=== PATIENT | female | born 1945 | race Caucasian/White ===

== ENCOUNTER 2019-02-19 10:51 | Day surgery (SDC) | payer MEDICARE, SELFPAY ==
[2019-02-12 18:28] VITALS: BMI 19.8
[2019-02-19 11:36] VITALS: BP 152/89; PULSE 74; RESP 18; TEMP 36.5; O2SAT 95
[2019-02-19] MEDS: sodium chloride 0.9% 1,000 ML 30 ML IV (11:54)
--- NOTE | 2019-02-19 12:37 | P.ANES_ITS ---
Pre-Anesthetic Assessment Pre-Anesthetic Assessment: Height/Weight: Height 1.6 m Weight 50.802 kg Temp Pulse Resp BP Pulse Ox 97.7 F 74 18 152/89 95 02/19/19 11:36 02/19/19 11:36 02/19/19 11:36 02/19/19 11:36 02/19/19 11:36 Preop Diagnosis: Right hand and forearm lesions Proposed Procedure: Operation Date: 02/13/19 13:15 Proposed Procedures p Excision Mass/Lesion/Cyst Upper Extremit(Right) - Edinson Chandler MD Operation Date: 02/19/19 13:35 Proposed Procedures p Excision Mass/Lesion/Cyst Upper Extremit(Right) - Edinson Chandler MD Last intake: Intake Last Liquid Date 02/18/19 Last Solid Date 02/18/19 Last Intake: 21:00 Social: Comment: quit 85 Airway: Submandibular: WNL Cervical ROM: WNL MP: 2 Dentition: False CV/HEM: CV/HEM: CAD, HTN and OK Comments: CABG x 06, stents x2 14, without angina Arabella 05/26, no changes/concerns stress test 11/25 neg Musc/skel: Comments: neck pain without radiculopahty Neuropsych: Neuropsych: [place]AP[place]AN Anesthetic Plan: ASA status: III Anesthesia: MAC Meds/Allergies Current Medications: Current Medications Generic Name Dose Route Start Last Admin Trade Name Freq PRN Reason Stop Dose Admin Sodium Chloride 1,000 mls @ 30 ml s/hr 02/19/19 11:30 02/19/19 11:54 Sodium Chloride 0.9% IV 02/20/19 11:29 30 mls/hr .Q24H EKTA Administration PFSH Anesthesia PFSH: Social History Smoking and tobacco status: former smoker Quit status (tobacco): has quit using tobacco Year quit tobacco: 1984 Alcohol intake: never Lives independently: Yes Household members: none Marital status: / Current occupational status: employed 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
--- NOTE | 2019-02-19 13:54 | P.HP_ITS ---
Providers/Chief Complaint Primary Care Provider: Jesusita Soto NP Chief Complaint: Excision of right forearm and right hand skin lestara History of Present Illness Makenzie Sahu is a 73 year old female referred to my office for skin lesions excision, patient gives history of skin cancer. Review of Systems Const: Reports: body aches; Denies: fever, chills, change in weight, fatigue or malaise Card: Denies: chest pain, palpitations, lightheadedness or shortness of breath on exertion Resp: Denies: shortness of breath or wheezing GI: Denies: abdominal pain, nausea, vomiting, vomiting blood, diarrhea, constipation, bloating, blood in stool or black tarry stool : Denies: difficulty urinating Musc: Denies: back pain Skin/Breast: Reports: skin tenderness Neuro: Denies: frequent falls Psych: Denies: anxiety or depression Endo: Denies: excessive urination Medications/Allergies Home Medications Medication Instructions Recorded Confirmed Last Taken Type aspirin 81 mg PO DAILY 02/12/19 02/19/19 02/16/19 History carvedilol 3.125 mg PO BID 02/12/19 02/19/19 02/19/19 06:30 History diltiazem HCl 60 mg PO TID 02/12/19 02/19/19 02/19/19 06:30 History bvtkvuqfbmr-twhmujkdf-dnsrgfsn 1 inh INHALATION DAILY 02/12/19 02/19/19 02/19/19 History [Trelegy Ellipta] furosemide 20 mg PO DAILY 02/12/19 02/19/19 Unknown History levothyroxine 25 mcg PO DAILY 02/12/19 02/19/19 02/18/19 History nitroglycerin 0.4 mg SUBLINGUAL Q5M PRN 02/12/19 02/12/19 Unknown History prednisone 5 mg PO DAILY 02/12/19 02/19/19 02/18/19 History theophylline 200 mg PO DAILY 02/12/19 02/19/19 02/18/19 History tramadol 50 mg PO BID PRN 02/12/19 02/19/19 02/18/19 History Allergies Allergy/AdvReac Type Severity Reaction Status Date / Time atenolol Allergy Unknown Verified 02/19/19 11:50 atorvastatin [From Lipitor] Allergy Unkown Verified 02/19/19 11:50 bupivacaine [From Marcaine] Allergy Unknown Verified 02/19/19 11:50 butorphanol [From Stadol] Allergy Unknown Verified 02/19/19 11:50 lisinopril Allergy Cough and Verified 02/19/19 11:50 Rash losartan [From Cozaar] Allergy Unknown Verified 02/19/19 11:50 metoprolol Allergy Rash, Verified 02/19/19 11:50 Itching PFSH Acute PFSH: Statuses (acute, chronic, etc) shown below reflect problem list status as previously entered and may not be historically accurate Family History Mother , Age 75 Hypertension Cancer Heart disease Father , Age 48 Myocardial infarction Denies family history of Anesthesia complication Bleeding disorder Social History Smoking and tobacco status: former smoker Quit status (tobacco): has quit using tobacco Year quit tobacco: 1984 Alcohol intake: never Lives independently: Yes Household members: none Marital status: / Current occupational status: employed 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[employer] [place] of 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 travel: No Vitals/I&O/Wt Last Vital Signs Temp 97.7 F 02/19/19 11:36 Pulse 74 02/19/19 11:36 Resp 18 02/19/19 11:36 BP 152/89 02/19/19 11:36 Pulse Ox 95 02/19/19 11:36 Physical Exam Const: COMMON NORMALS: no apparent distress and oriented x3 GENERAL APPEARANCE: cooperative ORIENTATION/CONSCIOUSNESS: Yes awake, Yes oriented to person, Yes oriented to place and Yes oriented to time Resp: COMMON NORMALS: normal respiratory effort and clear to auscultation bilaterally AUSCULTATION: clear to auscultation bilaterally Cardio: COMMON NORMALS: S1 normal heart sound and S2 normal heart sound; negative for no murmurs HEART SOUNDS: S1 normal and S2 normal GI: COMMON NORMALS: soft to palpation; negative for no hepatosplenomegaly INSPECTION: Yes normal to inspection PALPATION: Yes soft, No firm, No tender, No guarding, No rigid and No no hepatosplenomegaly Extremity: GENERAL: Yes other findings (Right forearm skin lesion less than centimeter in diameter and right base of the right thumb skin lesion 1.5 x 2 cm in diameter concerning for skin cancer) Neuro: COMMON NORMALS: oriented x3 SENSORIUM/ORIENTATION: Yes oriented to person, Yes oriented to place and Yes oriented to time Psych: COMMON NORMALS: mental status grossly normal A&P Assessment and plan (1) Skin lesion of hand: After thorough history physical examination and reviewing the chart we teofilo l plan to perform excision of skin lesions of the right forearm and hand Informed consent per chart Status: Acute Code(s): L98.9 - Disorder of the skin and subcutaneous tissue, unspecified Attestations Medical Necessity Statement*: Outpatient procedure Coding Level of Care Code Acute Jammer Hooker for [facility] Fwd Diagnoses Skin lesion of hand L98.9
[2019-02-19] MEDS: ceFAZolin 1,000 MG in sodium chloride 0.9% (plus) 50 ML 100 MG IV (14:00)
[2019-02-19] MEDS: lidocaine 2% INJ 20 mL INJECTION (14:20)
--- NOTE | 2019-02-19 14:44 | P.OP_ITS ---
Operative Report Date of procedure: 02/19/19 Preop Diagnosis: Right upper extremity skin lesions concerning for cancer Post-op diagnosis: same Post-op Findings: Right forearm skin lesion measures about 1 x 1 cm Right hand skin lesion 2 x 1.5 Appropriate safety margin was taken Procedure Done: Excision of right forearm and right hand skin lesion Specimens removed/disposition: Right hand skin lesion short suture superior and long sutures lateral Right forearm skin lesion short suture superior and long sutures lateral Surgeon: Edinson Chandler Anesthesia: MAC (AUTOMATIC HEMMER Penny) and other (Local anesthesia) Estimated blood loss (mL): 5 Complications: No immediate complication Findings: Right hand and forearm skin lesions concerning for skin cancer Condition: stable Disposition: same day Brief History: This is a pleasant 73 years old female patient was referred to my office for concern of skin cancer on 2 spots located on the right forearm and the base of the right thigh thumb. After history taking physical examination and reviewing the chart I counseled the patient for excision of both lesions in the OR and she did agree to proceed. Informed consent per chart Procedure: After identifying the patient holding area, both right upper extremity masses were marked before the procedure by myself, patient was then taken to the operative suite, was placed in supine position, IV antibiotics were given per protocol,IV propofol was infused by the anesthesia provider, prep and drape of the left upper and mid back regions were done under the usual sterile technique. Time-out was done verifying the patient's name/date of /planned procedure and destination after the procedure, all were in agreement. After palpation of both masses. Infiltration of lidocaine 2%. Started with the right hand mass. I did an elliptical incision on top of the mass with appropriate safety margin. I was able to dissect using sharp dissection all the way to the subcutaneous tissues, hemostasis followed by a 3-0 Vicryl then 4-0 Monocryl, the same maneuver was done to the right forearm mass with appropriate safety margins, followed by hemostasis and closure with 3-0 Vicryl and 4 oh Monocryl. Both specimens were oriented with short sutures superior and long suture lateral and the 2 specimens were sent for permanent pathology in different specimen containers. Lidocaine 2% was injected at the site of the incisions, followed by Mastisol and Steri-Strips then Kerlix and Andre wrap Patient tolerated the procedure well, count of instruments and sponges were completed at the end of the procedure. And then patient was taken to the recovery area in stable condition. I was present for the whole entire procedure
[2019-02-19 15:05] VITALS: BP 114/58; PULSE 68; RESP 18; TEMP 36.6; O2SAT 95
[2019-02-19 15:30] VITALS: BP 127/76; PULSE 61; RESP 18; O2SAT 96
[2019-02-19] MEDS: TRAMadol 50 mg Tablet PO (15:47)
== END 2019-02-19 15:48 | disposition home or self-care (01) ==
PROVIDERS: Family Provider Nurse Practitioner Family; PCP Nurse Practitioner Family; Visit Provider Surgery
PROC: (CPT 11401; principal; 2019-02-19 13:25)
DX: L57.0 Actinic keratosis (principal); Z79.82 Long term (current) use of aspirin; Z79.52 Long term (current) use of systemic steroids; Z82.49 Family history of ischemic heart disease and other diseases of the circulatory system; Z87.891 Personal history of nicotine dependence
CPT/HCPCS: 11401; 11422; 12345; 88304; 96365; J0690; J2001; J2704; J7030

== ENCOUNTER 2019-03-09 12:30 | Outpatient (CLI) | payer MEDICARE, MEDICAID, SELFPAY ==
--- NOTE | 2019-03-09 12:49 | MR_ITS ---
WS: [id number] MRI CERVICAL SPINE HISTORY: NECK PAIN COMPARISON: MRI cervical spine 10/01/2014. Cervical spine CT 12/11/2018. Anterior cervical fusion extends from C5 through C7. C3 anterolisthesis by 3.2 mm and C4 anterolisthesis by 3.6 mm. Disc space narrowing and desiccation a t all levels in the cervical spine. There is some very minimal increased signal in the cervical cord at the C4 level which I believe is artifact. No cord atrophy or enlargement. Craniocervical junction, C1 and C2 relationship, odontoid process and soft tissues are normal. C2-C3: Small central disc protrusion without cord contact. C3-C4: Mild annular disc bulging with mild facet arthropathy. Moderate RIGHT and mild LEFT foraminal stenosis. C4-C5: Annular disc bulge and the anterolisthesis resulting in mild central and bilateral foraminal s tenosis. C5-C6: C5 vertebral body with mild encroachment upon the ventral thecal sac and cervical cord. Mild c entral stenosis. C6-C7: No significant stenosis. C7-T1: Small osteophytes and mild annular disc bulging. No significant stenosis. Paraspinal soft tissue are normal. MR/MR cervical spin wo con* [id number] IMPRESSION: 1. Prior anterior cervical fusion from C5 to C7. Similar in appearance to the prior study from 10/01/2014 and 12/11/2018. 2. C3 and C4 anterolisthesis, most significant at C4 x 3.6 mm. 3. Multilevel spondylosis. 4. Mild central canal narrowing at the C4-5 level with the C5 vertebral body e ncroachment upon the ventral thecal sac. 5. Moderate RIGHT and mild LEFT foraminal stenosis at C3-4. 6. No significant progression of disease since 12/11/2018.
--- NOTE | 2019-03-09 12:56 | XR_ITS ---
WS: [id number] LATERAL CERVICAL SPINE: 3 view. Lateral radiographs are performed in upright neutral, flexion and extension to the patient's toleranc e. HISTORY: neck pain COMPARISON: 12/21/2018 Prior anterior cervical fusion from C5 to C7. Bones are osteopenic. Diffuse osteopenia surrounding th e vertebral screws and throughout the entire vertebral bodies. Similar to the prior study. C3 and C4 anterolisthesis. C4 anterolisthesis at 2.3 cm. With flexion and extension the anterolisthes is does not change significantly. No change in alignment of the hardware. XR/XR cervical spine fl/ex [id number] IMPRESSION: 1. Prior anterior cervical fusion C5-C7 with no interval change. 2. Slight anterolisthesis of C3 and C4 anterolisthesis of C3 and C4. No signif icant instability is demonstrated with flexion or extension.
== END 2019-03-09 12:31 | disposition home or self-care (01) ==
LOC: RADWPI 12:48
PROVIDERS: Family Provider Nurse Practitioner Family; PCP Nurse Practitioner Family; Visit Provider Specialist
DX: M54.2 Cervicalgia (principal); Z98.1 Arthrodesis status; M47.899 Other spondylosis, site unspecified
CPT/HCPCS: 72040; 72141

== ENCOUNTER 2019-07-26 10:41 | Outpatient (CLI) | payer MEDICARE, SELFPAY ==
--- NOTE | 2019-07-26 11:16 | MR_ITS ---
WS: [id number] MRI CERVICAL SPINE NONCONTRAST TECHNIQUE: Sagittal T1, T2 and STIR imaging. Axial T2, gradient, and fiesta imaging. CLINICAL INFORMATION: CERVICAL DISC DISORDER WITH RADICULOPATHY COMPARISON: MRI March 09, 2019 FINDINGS: Straightening of the normal cervical lordosis. Prior postoperative changes anterior interbody cervica l fusion C5-C7. Slight anterolisthesis C3 on C4, C4 on C5, and C7 on T1 is unchanged. No high-grade c entral canal stenosis. Cord signal is normal. C2-C3: Tiny central protrusion. Moderate facet arthropathy. Mild left foraminal narrowing. Spinal can al is patent. C3-C4: Disc osteophyte ridging with slight anterolisthesis. Moderate facet arthropathy. Moderate righ t and mild to moderate left bony foraminal narrowing. Spinal canal is patent. C4-C5: Slight anterolisthesis C4 on C5. Disc osteophyte complex with endplate ridging. Spinal canal i s patent. Mild left greater than right bony foraminal narrowing. Moderate facet arthropathy. C5-C6: Anterior interbody cervical fusion. Mild left and no significant right foraminal narrowing. Sp inal canal is patent. C6-C7: Anterior interbody cervical fusion. Mild left and no significant right foraminal narrowing. Sp inal canal is patent. C7-T1: Slight anterolisthesis C7 on T1. Endplate ridging. Moderate left and mild right bony foraminal narrowing. Spinal canal is patent. No significant interval changes since March 09, 2019. Visualized brain stem structures: Normal. Prevertebral soft tissues: Normal. MR/MR cervical spin wo con* [id number] IMPRESSION: 1. Straightening of the normal cervical lordosis with prior anterior interbody cervical fusion C5-C7. Alignment is unchanged from previous. 2. Stable slight anterolisthesis C3 on C4, C4 on C5, and C7 on T1 unchanged. 3. Mild central canal stenosis C4-C5 unchanged. 4. Multilevel mild to moderate bony foraminal narrowing worse at right C3-4, l eft C4-5, bilateral C6-7, and left C7-T1. 5. Asymmetric moderate facet arthropathy worse at left C2-3, bilateral C3-4 an d left C4-5
--- NOTE | 2019-07-26 11:17 | XR_ITS ---
WS: [id number] XR cervical spine fl/ex [id number] REASON FOR EXAM: CERVICAL DISC DISORDER WITH RADICULOPATHY FINDINGS: Comparisons were made to March 09, 2019. Anterior fusion changes C5-C6-C7 with no interva l change since the previous exam. Extension views show limited extension at the area fusion normal mo tion flexural views noted. XR/XR cervical spine fl/ex [id number] IMPRESSION: Anterior fusion changes C5-C6-C7 Limited extension views.
== END 2019-07-26 10:42 | disposition home or self-care (01) ==
PROVIDERS: Family Provider Nurse Practitioner Family; PCP Nurse Practitioner Family; Visit Provider Anesthesiology Pain Medicine
DX: M50.10 Cervical disc disorder with radiculopathy, unspecified cervical region (principal); M48.02 Spinal stenosis, cervical region; M47.812 Spondylosis without myelopathy or radiculopathy, cervical region
CPT/HCPCS: 72040; 72141

== ENCOUNTER 2019-08-16 10:47 | Observation (INO) | payer MEDICARE, SELFPAY ==
[2019-08-14 10:07] VITALS: BMI 19.8
--- NOTE | 2019-08-14 10:14 | ECG_ITS ---
[facility] Test Date: 2019-08-14 Pat Name: Makenzie Ambrocio Department: Room: Gender: Female Neurosurgery Research Director: : 1945 Requested By: Nicolette Garza Order Number: [id number] Zoe MD: Chris Bell M.D. Measurements Intervals [place]ts Rate: 68 P: MD: -1 QRS: 219 QRSD: 137 T: 264 QT: 405 QTc: 432 Interpretive Statements Sinus rhythm MARKED RIGHT AXIS DEVIATION [QRS AXIS > 100] RIGHT BUNDLE BRANCH BLOCK [120+ ms QRS DURATION, UPRIGHT V1, 40+ ms S IN I/aVL/V4/V5/V6] ANTEROSEPTAL MYOCARDIAL INFARCTION [40+ ms Q WAVE IN V1-V4], OF INDETERMINATE AGE MODERATE T-WAVE ABNORMALITY, CONSIDER INFERIOR ISCHEMIA [-0.1+ mV T WAVE IN II/aVF] No previous ECG available for comparison Electronically Signed On 08-14-2019 16:58:03 CDT by Chris Bell M.D. [id number]
--- NOTE | 2019-08-14 10:35 | ANES.PREANE2 ---
Pre-Anesthetic Assessment Pre-Anesthetic Assessment: Height/Weight: Height 1.6 m Weight 50.802 kg Preop Diagnosis: Right upper extremity skin lesions concerning for cancer Proposed Procedure: Operation Date: 08/16/19 07:00 Proposed Procedures p Dorsal Column Stimulator Insertion/Cervical 96908 M50.00(Not Applicable) - Yobani Asencio MD Familial anesthetic complications: NOne Social: Social History: No alcohol and No tobacco Exam: Pre-Anes Outpt Exam: alert, oriented x 3, clear to auscultation bilaterally and regular rate & rhythm (a fib) Airway: Cervical ROM: WNL (painful ROM) MP: 2 Dentition: False Pulmonary: Pulmonary: COPD (on prednisone chronically) CV/HEM: CV/HEM: Afib, CAD (stents X2 in 2016) and HTN GI: GI: GERD and Hiatus hernia Metabolic: Metabolic: DM, Hyperlipidemia and Thyroid Musc/skel: Musc/skel: Fibromyalgia and OA/DJD Neuropsych: Neuropsych: Anxiety and Neuropathy Anesthetic Plan: ASA status: 4 Anesthesia: MAC Risk of > 500 ml blood loss (7ml/kg in children): No PFSH Anesthesia PFSH: Medical History Bloating Cachexia Carpal tunnel syndrome of right wrist Cervical disc disorder Delayed gastric emptying Diabetes mellitus Dysphagia History of anxiety History of COPD History of hemoptysis History of pacemaker History of palpitations Hx of cataract Hx of hyperlipidemia Hx of hypotension Hx of osteoporosis Intervertebral cervical disc disorder with myelopathy, cervical region Joint instability Nausea Pituitary tumor PVC (premature ventricular contraction) 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 Chandler ([facility] [place]) H/O right knee surgery History of carpal tunnel surgery of right wrist [place], 1984 History of laryngoscopy History of pituitary surgery History of removal of implants of both breasts Hx of appendectomy Hx of breast implants, bilateral Hx of cholecystectomy Hx of foot surgery Hx of hernia repair Hx of hysterectomy Hx of neck surgery Hx of tonsillectomy S/P CABG (coronary artery bypass graft) S/P cervical spinal fusion C5-C7 ACDFF, [facility] [place], 2006 S/P decompression of ulnar nerve at elbow right, [place], 1984 Status post Arpan fundoplication Family History Mother , Age 75 Hypertension Cancer Heart disease Father , Age 48 Myocardial infarction Denies family history of Anesthesia complication Bleeding disorder Social History Smoking and tobacco status: former smoker Quit status (tobacco): has quit using tobacco Year quit tobacco: 1984 - 2PPD x 45 Years Alcohol intake: never Lives independently: Yes Household members: none Marital status: / Current occupational status: employed 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
[2019-08-14 10:38] LABS: Basophils # 0.1 10^3/uL (0.0-0.1); Basophils % 0.6 %; Eosinophils # 0.3 10^3/uL (0.0-0.8); Eosinophils % 3.2 %; Hemoglobin 13.7 g/dL (11.5-15.3); Lymphocytes # 1.2 10^3/uL (0.8-4.8); Lymphocytes % 14.7 %; Mean Corpuscular HGB Conc 31.9 g/dL (30.0-36.0); Mean Corpuscular Hemoglobin 29.7 pg (28.0-34.0); Mean Corpuscular Volume 93.3 fL (81-99); Mean Platelet Volume 11.3 fL (7.4-10.4); Monocytes # 0.6 10^3/uL (0.2-0.9); Monocytes % 7.6 %; Neutrophils # 5.9 10^3/uL (1.8-7.7); Neutrophils % 73.5 %; Nucleated Red Blood Cells % 0 %; Platelet Count 221 10^3/cmm (130-400); Red Blood Count 4.61 10^6/uL (4.1-5.3); Red Cell Distribution Width 14.6 % (12.1-15.1)
[2019-08-14 10:57] LABS: Anion Gap 12.9 (5-19); Blood Urea Nitrogen 16 mg/dL (8-23); Calcium 9.3 mg/dL (8.5-10.5); Carbon Dioxide 27 mmol/L (22-29); Chloride 104 mmol/L (98-107); Glucose 181 mg/dL (65-115); Osmolality Calculated 291 mOsm/kg (285-295); Potassium 3.9 mmol/L (3.5-5.1); Sodium 140 mmol/L (136-145)
[2019-08-16] VITALS (12 sets, daily range): BP systolic 99–117; BP diastolic 49–78; PULSE 53–66; RESP 14–23; TEMP 35.6–36.9; O2SAT 94–100
--- NOTE | 2019-08-16 | XR_ITS ---
WS: [id number] C-ARM RADIOGRAPHS NECK; 3 IMAGES HISTORY: DCS COMPARISON: None available. Intraoperative imaging during stimulator placement. Electrodes project over the posterior LEFT neck. XR/XR cervical spine 3V* [id number] IMPRESSION: Intraoperative imaging during stimulator placement.
--- NOTE | 2019-08-16 | SCC_ITS ---
Procedure Done: 1. Cervical laminotomy with placement of intraspinal, epidural paddle electrode arrays. 2. Placement of subcutaneous programmable pulse generator with connection to intraspinal epidural electrode arrays. 25.1 seconds of fluoroscopic guidance, for a cumulative dose of 1.64 mGy, was provided to Dr. Asencio by the radiology department. C-arm images of the cervical spine were saved for the patient's permanent record. JENNY
[2019-08-16] MEDS: vancomycin 1,000 MG in sodium chloride 0.9% 250 ML 250 MG IV (06:44)
--- NOTE | 2019-08-16 06:44 | W.PM.OPSUD ---
Surgery/Procedure H&P Update DATE OF PROCEDURE: August 16, 2019 DATE H&P PERFORMED: 08/01/19 H&P UPDATE INFORMATION: I have reviewed H&P completed within last 30 days, H&P to be scanned into chart and H&P is in [facility] EMR on date indicated PREOP DIAGNOSIS: Intervertebral disc disorder with myelopathy, cervical region PRIMARY INDICATION FOR PROCEDURE: Pain PLANNED PROCEDURE: Operation Date: 08/16/19 07:00 Proposed Procedures Laminotomy/laminectomy Placement of spinal cord Stimulator electrode arrays and subQ pulse generator
[2019-08-16] MEDS: sodium chloride 0.9% 1,000 ML 30 ML IV (06:45)
--- NOTE | 2019-08-16 06:46 | P.ANESASSM_ITS ---
Pre-Anesthetic Assessment Pre-Anesthetic Assessment: Height/Weight: Height 1.6 m Weight 50.802 kg Temp Pulse Resp BP Pulse Ox 98.4 F 53 L 18 113/69 96 08/16/19 06:08 08/16/19 06:08 08/16/19 06:08 08/16/19 06:08 08/16/19 06:08 Preop Diagnosis: Intervertebral disc disorder with myelopathy, cervical region Proposed Procedure: Operation Date: 08/16/19 07:00 Proposed Procedures p Dorsal Column Stimulator Insertion/Cervical 91747 M50.00(Not Applicable) - Yobani Asencio MD Last intake: Intake Last Liquid Date 08/16/19 Last Liquid Time 05:00 Last Solid Date 08/15/19 Last Solid Time 21:30 Social: Social History: Tobacco (quit 1984) and No alcohol Pulmonary: Pulmonary: COPD CV/HEM: CV/HEM: CAD (CABG) Comments: PPM GI: Comments: dysphagia Metabolic: Metabolic: DM, Hyperlipidemia and Thyroid Neuropsych: Neuropsych: Neuropathy Anesthetic Plan: ASA status: 3 Anesthesia: Anesthesia Evaluation and General Risk of > 500 ml blood loss (7ml/kg in children): No Meds/Allergies Current Medications: Current Medications Generic Name Dose Route Start Last Admin Trade Name Freq PRN Reason Stop Dose Admin Sodium Chloride 1,000 mls @ 30 ml s/hr 08/16/19 05:45 08/16/19 06:45 Sodium Chloride 0.9% IV 08/17/19 05:44 30 mls/hr .Q24H EKTA Administration PFSH Anesthesia 2 PFSH: Medical History Bloating Cachexia Carpal tunnel syndrome of right wrist Cervical disc disorder Delayed gastric emptying Diabetes mellitus Dysphagia History of anxiety History of COPD History of hemoptysis History of pacemaker History of palpitations Hx of cataract Hx of hyperlipidemia Hx of hypotension Hx of osteoporosis Intervertebral cervical disc disorder with myelopathy, cervical region Joint instability Nausea Pituitary tumor PVC (premature ventricular contraction) 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 [place]/O right knee surgery History of carpal tunnel surgery of right wrist [place]1984 History of laryngoscopy History of pituitary surgery History of removal of implants of both breasts Hx of appendectomy Hx of breast implants, bilateral Hx of cholecystectomy Hx of foot surgery Hx of hernia repair Hx of hysterectomy Hx of neck surgery Hx of tonsillectomy S/P CABG (coronary artery bypass graft) S/P cervical spinal fusion C5-C7 [place] [facility] [place] S/P decompression of ulnar nerve at elbow right, [place]1984 Status post Arpan fundoplication Family History Mother , Age 75 Hypertension Cancer Heart disease Father , Age 48 Myocardial infarction Denies family history of Anesthesia complication Bleeding disorder Social History Smoking and tobacco status: former smoker Quit status (tobacco): has quit using tobacco Year quit tobacco: 1984 - 2PPD x 45 Years Alcohol intake: never Lives independently: Yes Household members: none Marital status: / Current occupational status: employed 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[employer] [place] History of recent travel: No Current gender identity: Female Data Anesthesia CBC & Chem 7: 08/14/19 10:18 08/14/19 10:18 Other Labs: Laboratory Results - last 48 hr 08/14/19 08/14/19 10:18 10:18 WBC 8.0 RBC 4.61 Hgb 13.7 Hct 43.0 MCV 93.3 MCH 29.7 MCHC 31.9 RDW 14.6 Plt Count 221 MPV 11.3 H Neut % (Auto) 73.5 Lymph % (Auto) 14.7 [place] % (Auto) 7.6 Eos % (Auto) 3.2 Baso % (Auto) 0.6 Neut # (Auto) 5.9 Lymph # (Auto) 1.2 [place] # (Auto) 0.6 Eos # (Auto) 0.3 Baso # (Auto) 0.1 Nucleated RBC % (auto) 0 Nucleated RBCs # 0.0 Sodium 140 Potassium 3.9 Chloride 104 Carbon Dioxide 27 Anion Gap 12.9 BUN 16 Creatinine 0.6 Glucose 181 H Calculated Osmolality 291 Calcium 9.3 Cardiac Studies: No Data to Display
--- NOTE | 2019-08-16 07:00 | P.OP_ITS ---
Brief Operative Note: Date of procedure: 08/16/19 Pre-op diagnosis: Intervertebral disc disorder with myelopathy, cervical Post-op diagnosis: same Procedure Done: Cervical laminotomy for spinal cord stimulator lead placement. Placement of subQ pulse generator. Surgeon: Yobani Asencio Estimated blood loss (mL): 20 Complications: None. Post-op Plan: PACU, then [place] Condition: stable Disposition: PACU Coding Level of Care Code Acute Crusher Screen Repairer for Mick Thompson
[2019-08-16] MEDS: thrombin 5,000 unit SDV 5000 UNIT XX (07:57)
--- NOTE | 2019-08-16 08:32 | SUR.OPER ---
Family Notified Of Patient's Status Via Phone.
--- NOTE | 2019-08-16 09:19 | SUR.OPER ---
Family Notified Of Patient's Status Via Phone.
[2019-08-16] MEDS: neomycin-poly-bacitracin oint 28 gm 1 APPLIC TOPICAL (09:39)
[2019-08-16 11:20] LABS: Glucose Point of Care 189 mg/dL (70-110)
[2019-08-16] MEDS: ketorolac 30 mg/mL INJ 15 MG IVP (11:36)
[2019-08-16] MEDS: lactated ringers 1,000 ML 90 ML IV (11:37)
[2019-08-16] MEDS: albuterol 8 gm MDI 1 PUFF INHALATION (13:45)
--- NOTE | 2019-08-16 14:03 | P.OP_ITS ---
Operative Report Date of procedure: August 16, 2019 Pre-op Diagnosis: Intervertebral disc disorder with myelopathy, cervical region Post-op diagnosis: same Procedure Done: 1. Cervical laminotomy with placement of intraspinal, epidural paddle electrode arrays. 2. Placement of subcutaneous programmable pulse generator with connection to intraspinal epidural electrode arrays. Implants: [employer] Spectra WaveWriter pulse generator. [employer] Artisan, 70 cm, 2 x 8 surgical device sales representative. Clik lead anchors. Fixate suture devices. Pathology: none sent Surgeon: Yobani Asencio Anesthesia: MAC Estimated blood loss (mL): 20 IV fluids (mL): 1,000 Complications: none. Condition: stable Disposition: PACU Brief History: The patient is a 73-year-old female with intractable pain. She complained of headache, and neck/shoulder/bilateral upper extremity pain. Her workup included cervical spine imaging. Conservative treatment trials failed to provide adequate lasting symptom relief. She obtained marked relief of chronic pain during a percutaneous trial of cervical spinal cord stimulation. After review of the diagnostic and treatment options with the risks/potential benefits/rationale for each, the patient requested to proceed with placement of epidural paddle electrode arrays and a subcutaneous programmable pulse generator for chronic spinal cord stimulation therapy. Procedure: After routine preoperative evaluation and informed consent were obtained, the patient was taken to the Operating Room and positioned prone on the operating table. Chest and pelvic bolsters were placed to ensure the abdomen was decompressed. All pressure points were padded. The patient reported the position to be comfortable. She was maintained under varying levels of intravenous sedation by Anesthesia personnel. The planned right flank pulse generator placement incision was marked with a skin marker. A planned midline posterior cervical incision was likewise marked, after intraoperative localization with fluoroscopy. The patient's lead location during the successful percutaneous trial was utilized to guide placement for the permanent implant. Hair clippers were utilized at the occipitocervical junction. The posterior neck, thorax and flank areas were scrubbed with Betadine and prepped with DuraPrep. Sterile towels and drapes were applied, and an [place] surgical barrier was placed. The proposed midline cervical incision was infiltrated with 1% Xylocaine with epinephrine. A skin incision was made and carried down into the subcutaneous tissues. The deep fascial plane was identified and divided in the midline. A right-sided subperiosteal dissection was carried down along the lamina at what appeared by intraoperative fluoroscopy to be C3/C4. Deep self-retaining retractors were placed to maximize the operative exposure. A laminotomy was fashioned with Kerrison rongeurs. Ligamentum flavum was resected at the base of the laminotomy site. The hockey-stick dural separator was advanced into the dorsal epidural space, with some resistance encountered. The dural separator was removed, and the surgical device sales representative was advanced into the dorsal epidural space. Intraoperative fluoroscopy suggested a near midline position with the cephalad extent of the lead extending across C2. Anesthesia personnel diminished the patient's sedation until she was awake and conversant. The lead tails were connected to extension cables, and intraoperative spinal cord stimulation was pe rformed. The patient reported good paresthesia coverage of her chronic neck and upper extremity pain sites. Lead impedances were good. The patient's sedation was deepened. The wound was copiously irrigated with sterile saline and antibiotic irrigation. The fascia was closed utilizing 2-0 Vicryl Plus in a simple interrupted fashion. CLIK lead anchors were placed over the lead tails, and secured at the fascial entry point with Fixate suture devices. The lead - anchor - fascial interfaces were manipulated and found to be secure. Intraoperative fluoroscopy verified a stable lead position. Strain relief loops of the lead tails were fashioned within the subcutaneous space at the cervical incision site. The right flank incision site was prepared by infiltration with 1% Xylocaine with epinephrine. An incision was then made, and a subcutaneous pocket was created of adequate size to accommodate the pulse generator. The subcutaneous tunneling tool was utilized to create a subcutaneous passage between the thoracic and right flank incisions. Lead tails were advanced through the subcutaneous tunnel utilizing the tunneling tool. The lead tails were advanced into the appropriate ports on the [employer] WaveWriter pulse generator. An impedance check demonstrated no lead faults. The connection sites were secured with set screws and the torque wrench. The connection sites were manipulated and found to be secure. The pulse generator was again interrogated, with acceptable impedance and no evidence of device malfunction. The right flank subcutaneous pocket and the posterior cervical incision sites were copiously irrigated with antibiotic irrigation. Hemostasis was ensured. The pulse generator was placed within the right flank subcutaneous pocket with excess lead coiled deep/adjacent to the device. The pulse generator was anchored to the superficial fascia with a single Silk suture. The site was again irrigated with antibiotic irrigation. Wound closure was performed in multiple layers with 2-0 Vicryl Plus simple interrupted closure of the dermis. Intraoperative fluoroscopy verified lead position. Final skin closure was performed at the flank incision site with 3-0 Vicryl Plus in a running subcuticular pattern. Steri-Strips were applied. The final layer closure at the posterior neck incision was performed with interrupted nylon sutures. Antibiotic ointment was placed along the posterior cervical incision line. Sterile dressings were placed at both sites. The patient was then rotated onto the Recovery Room cart in the supine position. She tolerated the procedure well. All sponge, needle and instrument counts were correct at the completion of the procedure.
[2019-08-16] MEDS: lactulose oral liq 20 gm/30 mL UDC PO (14:22)
[2019-08-16] MEDS: dilTIAZem 60 mg Tablet PO (14:22)
--- NOTE | 2019-08-16 16:14 | P.DS_ITS ---
Discharge Providers Date of Admission: 08/16/19 10:47 Date of Discharge: August 16, 2019 Attending Provider at Admission: Yobani Asencio MD Attending Provider at Discharge: Yobani Asencio MD Primary Care Provider: Jesusita Soto NP Diagnoses at Discharge Discharge Diagnosis (1) Intervertebral cervical disc disorder with myelopathy, cervical region: Status: Acute (2) S/P cervical spinal fusion: Status: Chronic Problem details: C5-C7 [place] [facility] [place] Reason for Visit Reason for Visit: Intervertebral disc disorder with myelopathy cervi Brief History: The patient is a 73-year-old female with intractable pain. She complained of headache, and neck/shoulder/bilateral upper extremity pain. Her workup included cervical spine imaging. Conservative treatment trials failed to provide adequate lasting symptom relief. She obtained marked relief of chronic pain during a percutaneous trial of cervical spinal cord stimulation. After review of the diagnostic and treatment options with the risks/potential benefits/rationale for each, the patient requested to proceed with placement of epidural paddle electrode arrays and a subcutaneous programmable pulse generator for chronic spinal cord stimulation therapy. Hospital Course Hospital Course: The patient underwent cervical laminotomy for placement of intraspinal, epidural paddle electrode arrays and placement of a subcutaneous programmable pulse generator on 08/16/2019. She tolerated the procedure well. She completed perioperative intravenous antibiotic doses. She was ambulatory, voiding, and tolerating regular diet prior to discharge home on the afternoon of the date of surgery. Physical Exam Const: COMMON NORMALS: no acute distress GENERAL APPEARANCE: cooperative and comfortable Eye: ALIGNMENT: Yes alignment normal Neck/C-Spine: GENERAL: Yes trachea midline CERVICAL SPINE: Yes collar present Resp: COMMON NORMALS: normal respiratory effort EFFORT & INSPECTION: Yes able to speak in complete sentences and No tachypneic Extremity: COMMON NORMALS: no clubbing, cyanosis or edema Neuro: COMMON NORMALS: moves all extremities GAIT: Yes Other gait observations present (ambulatory) Psych: COMMON NORMALS: mental status grossly normal, Normal thought process present and speech normal APPEARANCE: Yes grossly normal ATTITUDE: Yes calm and Yes engaged ACTIVITY/MOTOR BEHAVIOR: Yes appropriate eye contact SPEECH: Yes normal speech MOOD & AFFECT: Yes euthymic mood THOUGHT PROCESS: Normal thought process present ATTENTION/CONCENTRATION: Yes attention grossly intact INSIGHT: Good insight present (Psych) JUDGEMENT: Good judgement present (Psych) Skin: WOUNDS: Yes surgical site (Posterior cervical and right flank surgical site dressings clean/dry/intact) Discharge Data Data Completed and Pending: Completed Studies During Hospitalization Category Date Time Status XR cervical spine 3V* [id number] Routine Exams 08/16/19 Completed Procedures Performed: Placement of cervical intraspinal, epidural paddle electrode arrays via laminotomy. Placement of subcutaneous programmable pulse generator. Intravenous antibiotics. Vitals: Last Vital Signs Temp 97 F L 08/16/19 10:35 Pulse 61 08/16/19 13:58 Resp 18 08/16/19 13:47 BP 106/59 08/16/19 10:35 Pulse Ox 97 08/16/19 13:47 Discharge Plan Discharge Patient Disposition: Home, Self-Care Condition: Stable Prescriptions: [place] 7.5-325 mg tablet 1 tab PO Q6H PRN (Reason: pain) Qty: 20 RF: 0 Continued Aleve liquid gels 220 mg 220 mg PO DAILY PRN (Reason: Pain) RF: 0 albuterol sulfate 90 mcg/actuation HFA aerosol inhaler 1 inh INHALATION QID RF: 0 cetirizine 10 mg tablet 10 mg PO DAILY PRN (Reason: allergies) RF: 0 lactulose [Constulose] 10 gram/15 mL solution 20 gm PO TID RF: 0 prednisone 5 mg Tablet 5 mg PO DAILY RF: 0 carvedilol 3.125 mg Tablet 3.125 mg PO BID RF: 0 nitroglycerin 0.4 mg Tablet, Sublingual 0.4 mg SUBLINGUAL Q5M PRN (Reason: chest pain) RF: 0 theophylline 200 mg Capsule,Extended Release 24hr 200 mg PO DAILY RF: 0 diltiazem HCl 60 mg Tablet 60 mg PO TID RF: 0 levothyroxine 25 mcg Capsule 25 mcg PO DAILY RF: 0 Trelegy Ellipta 100-62.5-25 mcg Blister With Device 1 inh INHALATION DAILY RF: 0 furosemide 20 mg tablet 20 mg PO DAILY PRN (Reason: Edema) RF: 0 Held aspirin 81 mg Tablet,Delayed Release (Dr/Ec) 81 mg PO DAILY RF: 0 Hold Instructions: Resume on 02/22/19. Discharge Orders: Discharge Order (Routine); Ordered 08/16/19 Ordered By: Yobani Asencio Referrals: Yobani Asencio MD [Physician] - 08/30/19 9:00 am (Please follow up with Dr. Asencio on August 29 at 0900) Discharge Diet: Regular Discharge Activity: Limit activity as instructed Patient Instructions: Hydrocodone/Acetaminophen (By mouth), Spinal Cord Stimulator Placement (DC) Activity Restrictions/Additional Instructions: Activity - No driving until office followup visit - No lifting/pushing/pulling over 10 pounds - Avoid twisting or bending - Walking is encouraged - Home exercise per physical therapist - You may engage in sexual intercourse at any time as long as it is comfortable for you - Check with your doctor before returning to work. Notify your doctor if you develop: - temperature of 101.5 degrees F. or higher - redness or swelling of the incision - Foul drainage - increasing pain - increasing numbness or tingling in the arms or legs - New or increasing problems with vision, balance, memory, speaking, nausea or vomiting Hygiene: - Showering is okay - No tub baths or soaking Other: Remove outer bandage 3 days after surgery. If you have paper strips, leave in place until they fall off on their own. If you have stitches, keep your incision dry until the stitches are removed. Your doctor's office is available to answer any questions from 7 AM to 5:00 PM, Tuesday through at [phone]. After hours, go to the emergency room at [facility] or call 911 for assistance. Discharge Date/Time: 08/16/19 15:30 Discharge Attestations Time Spent in Discharge Care*: other (postop global) Quality Metrics Clinical Quality Measures During this hospital stay, did patient experience: None Coding Level of Care Code Acute Hook Loader for [facility] Fwd Exam Comprehensive Diagnoses Intervertebral cervical disc disorder with myelopathy, cervical region M50.00 S/P cervical spinal fusion Z98.1 Comment postop global
== END 2019-08-16 15:30 | disposition home or self-care (01) ==
LOC: MEDSURG 10:47
PROVIDERS: Anesthesiology; Admitting Provider Specialist; PCP Nurse Practitioner Family; Visit Provider Specialist
PROC: (CPT 63655; principal; 2019-08-16 07:00)
DX: M50.00 Cervical disc disorder with myelopathy, unspecified cervical region (principal); Z79.52 Long term (current) use of systemic steroids; Z79.82 Long term (current) use of aspirin; E03.9 Hypothyroidism, unspecified; F41.1 Generalized anxiety disorder; J43.9 Emphysema, unspecified; E78.5 Hyperlipidemia, unspecified; E11.40 Type 2 diabetes mellitus with diabetic neuropathy, unspecified; M79.7 Fibromyalgia; M81.0 Age-related osteoporosis without current pathological fracture; I25.10 Atherosclerotic heart disease of native coronary artery without angina pectoris; Z95.5 Presence of coronary angioplasty implant and graft; I10 Essential (primary) hypertension; M19.90 Unspecified osteoarthritis, unspecified site
CPT/HCPCS: 63655; 63685; 12345; 36416; 36592; 72040; 76000; 80048; 82962; 85025; 93005; 94640; 96365; 96366; 96375; 97161; C1778; C1820; C1883; G0378; J0131; J0690; J1885; J2704; J3010; J3370; J3490; J3535; J7030; J7050; L0174

== ENCOUNTER 2019-09-03 10:11 | Outpatient (CLI) | payer MEDICARE, SELFPAY ==
--- NOTE | 2019-09-03 10:19 | XRR_ITS ---
PROCEDURE INFORMATION: Exam: XR Chest, 2 Views Exam date and time: 09/03/2019 10:38 AM Age: 73 years old Clinical indication: Condition or disease; Lung condition and disease; Copd; Complications not specified; Prior surgery; Surgery date: 6+ months; Surgery type: Double bypass 2006 TECHNIQUE: Imaging protocol: XR of the chest Views: 2 views. COMPARISON: CT chest w con* [id number] 08/18/2018 9:03 AM FINDINGS: Tubes, catheters and devices: Biomedical device in the right abdomen, catheter/guidewire extend cephalad. Lungs: Unremarkable. No consolidation. Pleural space: Unremarkable. No pleural effusion. No pneumothorax. Heart/Mediastinum: CABG. No cardiomegaly. Bones/joints: No acute findings. Postoperative change in the cervical spine. XR/XR chest 2V* [id number] IMPRESSION: No acute findings.
== END 2019-09-03 10:12 | disposition home or self-care (01) ==
LOC: RAD 10:16
PROVIDERS: PCP Nurse Practitioner Family; Visit Provider Internal Medicine Critical Care Medicine
DX: J44.9 Chronic obstructive pulmonary disease, unspecified (principal)
CPT/HCPCS: 71046

== ENCOUNTER 2019-12-25 13:48 | Outpatient (CLI) | payer MEDICARE, SELFPAY ==
--- NOTE | 2019-12-25 14:01 | XR_ITS ---
WS: [id number] Exam: XR DEXA axial skeleton* [id number] Date/Time of Exam: 12/25/2019 2:02 PM Reason For Exam: AGE RELATED OSTEOPOROSIS WITHOUT CURRENT PATHOLOGICAL FRACTURE DEXA BONE DENSITOMETRY Vir2us The L1-L4 bone mineral density measures 0.956 g/cm2. This corresponds to a T score of -1.9 and Z scor e of 0.3. Left femoral neck bone mineral density measures 0.918 g/cm2. This corresponds to T score of -0.7 and Z score of 1.3. Right femoral neck bone mineral density measures 0.855 g/cm2. This corresponds to a T score of -1.2 a nd Z score of 0.8. Mean femoral neck bone mineral density measures 0.886 g/cm2. This corresponds to a T score of -1.0 an d Z score of 1.0 XR/XR DEXA axial skeleton* [id number] IMPRESSION: Bone mineral density lies in the osteopenic range. Refer to detailed summary.
== END 2019-12-25 13:49 | disposition home or self-care (01) ==
LOC: RADWPI 13:54
PROVIDERS: PCP Nurse Practitioner Family; Visit Provider Nurse Practitioner Family
DX: M81.0 Age-related osteoporosis without current pathological fracture (principal)
CPT/HCPCS: 77080

== ENCOUNTER → 2020-02-21 10:52 | Outpatient (BNVA) | payer MEDICARE, SELFPAY | PROVIDERS: PCP Nurse Practitioner Family; Visit Provider Podiatrist Foot & Ankle Surgery | DX: M79.671 Pain in right foot (principal); M79.672 Pain in left foot | CPT/HCPCS: 73630 ==

== ENCOUNTER 2020-03-03 07:57 | Outpatient (CLI) | payer MEDICARE, SELFPAY ==
--- NOTE | 2020-03-03 08:03 | MM_ITS ---
WS: [id number] BILATERAL SCREENING DIGITAL MAMMOGRAM WITH CAD HISTORY: SCREENING COMPARISON: 01/11/2019 and 01/09/2018 Bilateral CC and MLO views submitted. Computer aided detection analyzed. Breast composition: The breasts are heterogeneously dense, which may obscure small masses. No suspici ous masses, microcalcifications or architectural distortion. Distortion and asymmetry noted bilateral ly with dense breast arterial calcifications. These findings were present on prior studies. Bilateral breast implants have been removed. This probably accounts for the majority of the distortion. MM/[place] [id number] IMPRESSION: BI-RADS: 2-Benign FOLLOW UP: 1 Year Follow-up
== END 2020-03-03 07:58 | disposition home or self-care (01) ==
LOC: RADSHAW 08:01
PROVIDERS: PCP Nurse Practitioner Family; Visit Provider Nurse Practitioner Family
DX: Z12.31 Encounter for screening mammogram for malignant neoplasm of breast (principal)
CPT/HCPCS: 77067

== ENCOUNTER 2020-06-02 14:02 | Outpatient (CLI) | payer MEDICARE, SELFPAY ==
--- NOTE | 2020-06-02 14:00 | CT_ITS ---
WS: [id number] Exam: CT angio chest PE protcl [id number] Date/Time of Exam: 06/02/2020 2:10 PM Reason For Exam: SOB DLP: 759.[address] scans at [facility] use at least one of these dose optimization techniques: automat ed exposure control; mA and/or kV adjustment per patient size (includes targeted exams where dose is matched to clinical indication); or iterative reconstruction. Compared to prior study 08/18/2018. No sign of acute PE. Mild ectasia of the ascending aorta. The airway is patent. No mediastinal or hil ar lymphadenopathy. Triple vessel coronary artery disease. No pleural or pericardial effusion seen. M ild chronic interstitial changes noted throughout both lungs. No acute infiltrates. The lungs are ful ly inflated. Postoperative changes in the lower cervical spine. No destructive bone lesions. A small metallic ring abuts the anterior margin of the ascending aorta unchanged in appearance. A biomedical device is implanted in the subcutaneous soft tissues along the right flank region. No destructive bon e lesions are seen. CT/CT angio chest PE protcl [id number] IMPRESSION: 1. No sign of acute PE. 2. Pulmonary hyperinflation and probable obstructive lung disease with chronic interstitial changes.
[2020-06-02 14:38] LABS: Blood Urea Nitrogen 12 mg/dL (8-23)
[2020-06-02] MEDS: iohexol 350 mg/mL 100 mL Btl IV (14:49)
== END 2020-06-02 14:03 | disposition home or self-care (01) ==
PROVIDERS: PCP Nurse Practitioner Family; Visit Provider Internal Medicine Critical Care Medicine
DX: R06.02 Shortness of breath (principal); J44.9 Chronic obstructive pulmonary disease, unspecified; R00.1 Bradycardia, unspecified
CPT/HCPCS: 71275; 82565; 84520; Q9967

== ENCOUNTER 2020-07-16 06:57 | Outpatient (CLI) | payer MEDICARE, SELFPAY ==
[2020-07-16 07:20] VITALS: BMI 18.9
--- NOTE | 2020-07-16 07:46 | NMCV_ITS ---
NM danielle perf SPECT r/s* [id number] Makenzie Ambrocio Age: 74 Gender: F : 1945 Exam Date: 07/16/2020 08:25 Ordering Phys: Eduard Valladares M.D ([email or web address]) Technologist: RIRI Crowell Exam Location: [facility] Indications: SHORTNESS OF BREATH STRESS TEST Please see separate stress test report in [facility] for full findings IMAGE PROTOCOL Rest/Stress 1 Lexiscan Day Radiopharmaceutical Dose (mCi) Administration Site Administered by Rest: Tc-99m 10.8 IV RIRI oRsado Sestamibi Stress:Tc-99m 32.3 IV RIRI Rosado Sestamibi Rest: 16-Jul-2020 60 Discovery 630 Stress: 16-Jul-2020 30 Discovery 630 0.4mg Lexiscan. Images obtained in supine and prone position. SPECT RESULTS Technical Quality: Excellent Raw Data Analysis: Normal Image Corrections: No attenuation or motion correction applied Summed Stress Score: 1 Summed Rest Score: 1 Summed Difference Score: 0 PERFUSION FINDINGS There is a small in size, fixed perfusion defect in the mid lateral wall. No evidence of ischemia. FUNCTIONAL RESULTS (calculated via Gated SPECT) Stress Image LV EF (%): 76 Stress EDV (mL):87 TID: 1.12 Stress ESV (mL):21 FUNCTIONAL FINDINGS: There is normal left ventricular systolic function. IMPRESSIONS 1. Small, fixed perfusion defect noted in the mid lateral wall. This is consistent with prior small infarct. No evidence of ischemia 2. LV systolic function is normal Eduard Valladares MD (Electronically Signed) Final Date: 16 July 2020 12:21 S
--- NOTE | 2020-07-16 07:46 | ECG_ITS ---
[facility] Test Date: 2020-07-16 Pat Name: Makenzie Ambrocio Department: Room: Gender: Female Therapy Director: : 1945 Requested By: Eduard Valladares Order Number: [id number] Zoe MD: Eduard Valladares M.D. Interpretive Statements NAME OF STUDY: LEXISCAN SESTAMIBI STRESS TEST INDICATION: [Shortness of Breath, ] Procedure: At the baseline, the blood pressure was 124/47 mmHg with a heart rate of 44 bpm. The electrocardiogram showed sinus bradycardia, with right bundle branch block The Lexiscan was infused over a period of 20 seconds. A total of 0.4 mg of Lexiscan was infused. The stress phase was continued for a total of 5 minutes. Heart rate was at the end of stress phase was 61 bpm and a blood pressure of 91/59 mmHg. The EKG at the peak infusion revealed since normal sinus rhythm with no significant ST-T wave changes. Sestamibi was injected 20 seconds after the Lexiscan infusion. Blood pressure at the end of recovery phase was 113/76mmHg with a heart rate of 80 bpm. Conclusion: 1. Normal EKG response to Lexiscan infusion 2. No Lexiscan induced chest pain or cardiac arrhythmia. 3. Normal blood pressure and heart rate response. 4. Sestamibi/sestamibi perfusion scan pending; see separate report. Electronically Signed On 08-31-2020 18:03:59 CDT by Eduard Valladares M.D. [id number]
[2020-07-16] MEDS: regadenoson 0.4 Mg/5 ml Syringe IVP (09:10)
[2020-07-16 09:23] VITALS: BP 113/76; PULSE 79
== END 2020-07-16 06:58 | disposition home or self-care (01) ==
LOC: RAD 06:59 → CDL 07:46
PROVIDERS: PCP Nurse Practitioner Family; Visit Provider Internal Medicine
DX: R06.02 Shortness of breath (principal)
CPT/HCPCS: 78452; 93017; A9500; J2785

== ENCOUNTER → 2020-07-25 10:45 | Outpatient (BNVA) | payer MEDICARE, SELFPAY | PROVIDERS: PCP Nurse Practitioner Family; Visit Provider Internal Medicine | DX: Z01.812 Encounter for preprocedural laboratory examination (principal); Z20.822 Contact with and (suspected) exposure to COVID-19 | CPT/HCPCS: 87635 ==

== ENCOUNTER 2020-08-01 07:57 | Day surgery (SDC) | payer MEDICARE, SELFPAY ==
[2020-07-30 13:25] VITALS: BMI 18.9
[2020-08-01 08:07] VITALS: TEMP 37
--- NOTE | 2020-08-01 08:22 | ANES.PREANE2 ---
Pre-Anesthetic Assessment Pre-Anesthetic Assessment: Height/Weight: Height 1.6 m Weight 48.534 kg Preop Diagnosis: screening colonoscopy Proposed Procedure: Operation Date: 08/01/20 09:00 Proposed Procedures p Colonoscopy 14583 z12.11.(Not Applicable) - Silvano Fairbanks MD Familial anesthetic complications: none Was Beta Nacho taken within 24 hours: N/A Was Clonidine taken within 24 hours: N/A Last intake: 07/31/20 2130 liquid 07/30/20 1730 meal Social: Social History: No alcohol and No tobacco Exam: Pre-Anes Outpt Exam: alert, oriented x 3 and clear to auscultation bilaterally Airway: Submandibular: WNL Cervical ROM: Other (cervical fusion) MP: 2 Dentition: False History/ROS: No significant history except as noted Pulmonary: Pulmonary: COPD and SOB CV/HEM: CV/HEM: Arrythmia (PVC), CAD, DVT, HTN and LA Comments: previous CABG 01/2006 2014 - 2 cardiac stents Stress Test 07/28 results in chart. : : None reported Hepatic: Hepatic: None reported GI: GI: GERD Comments: no issues since surgical procedure. Metabolic: Metabolic: DM Comments: previous pituitary tumor. Neuropsych: Neuropsych: Anxiety and Neuropathy Anesthetic Plan: ASA status: 3 Anesthesia: Anesthesia Evaluation and MAC Risk of > 500 ml blood loss (7ml/kg in children): No PFSH Anesthesia PFSH: Medical History Bloating Cachexia Carpal tunnel syndrome of right wrist Cervical disc disorder Delayed gastric emptying Diabetes mellitus Dysphagia History of anxiety History of COPD History of hemoptysis History of palpitations Hx of cataract Hx of hyperlipidemia Hx of hypotension Hx of osteoporosis Intervertebral cervical disc disorder with myelopathy, cervical region Joint instability Nausea Pituitary tumor PVC (premature ventricular contraction) 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 Chandler ([facility] [place]) H/O right knee surgery History of carpal tunnel surgery of right wrist [place], 1985 History of laryngoscopy History of pituitary surgery History of removal of implants of both breasts Hx of appendectomy Hx of breast implants, bilateral Hx of cholecystectomy Hx of foot surgery Hx of hernia repair Hx of hysterectomy Hx of neck surgery Hx of tonsillectomy S/P CABG (coronary artery bypass graft) S/P cervical spinal fusion C5-C7 ACDFF, [facility] [place], 2005 S/P decompression of ulnar nerve at elbow right, [place], 1985 Status post Arpan fundoplication Family History Mother , Age 75 Hypertension Cancer Heart disease Father , Age 48 Myocardial infarction Denies family history of Anesthesia complication Bleeding disorder Social History Smoking and tobacco status: former smoker Quit status (tobacco): has quit using tobacco Year quit tobacco: 1984 - 3PPD x 25 Years Second hand smoke exposure: No Smoking risk assessment/counseling performed?: No Alcohol intake: never Lives independently: Yes Household members: spouse Marital status: Current occupational status: employed 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
[2020-08-01 08:45] LABS: Glucose Point of Care 96 mg/dL (70-110)
[2020-08-01] MEDS: sodium chloride 0.9% 1,000 ML 30 ML IV (08:45)
--- NOTE | 2020-08-01 09:14 | W.PM.OPSFHP ---
Same Day Surgery H&P Indication for Procedure/HPI DATE OF PROCEDURE: August 01, 2020 CHIEF COMPLAINT/INDICATIONFOR SURGICAL PROCEDURE: Screening colonoscopy PREOP DIAGNOSIS: screening colonoscopy PLANNED PROCEDRUE: Operation Date: 08/01/20 09:00 Proposed Procedures p Colonoscopy 79341 z12.11.(Not Applicable) - Silvano Fairbanks MD Medications/Allergies* Home Medications Medication Instructions Recorded Confirmed Type Trelegy Ellipta 1 inh INHALATION DAILY 02/12/19 08/01/20 History aspirin 81 mg PO DAILY 02/12/19 08/01/20 History carvedilol 3.125 mg PO BID 02/12/19 08/01/20 History diltiazem HCl 60 mg PO TID 02/12/19 08/01/20 History levothyroxine 25 mcg PO DAILY 02/12/19 08/01/20 History cetirizine 10 mg tablet 10 mg PO DAILY PRN tab 06/28/19 08/01/20 History rosuvastatin 10 mg tablet 10 mg PO DAILY 12/07/19 08/01/20 History metformin 850 mg tablet 500 mg PO DAILY tab 06/06/20 08/01/20 History vitamins A,C,K-erae-kcskzx 1 cap PO BID 08/01/20 08/01/20 History [PreserVision AREDS] Allergies/Adverse Reactions Allergy/AdvReac Type Severity Reaction Status Date / Time butorphanol [From Stadol] Allergy Severe ALGY-Swell Verified 07/31/20 09:13 Lip/Tongue/Throat losartan [From Cozaar] Allergy Severe ALGY-Rash Verified 07/31/20 09:13 metoprolol Allergy Rash, Verified 07/31/20 09:13 Itching atorvastatin [From Lipitor] AdvReac Severe ADR-Muscle Verified 07/31/20 09:13 Pain Current Medications: Generic Name Dose Route Start Last Admin Trade Name Freq PRN Reason Stop Dose Admin Sodium Chloride 1,000 mls @ 30 mls/hr 08/01/20 08:15 08/01/20 08:45 Sodium Chloride 0.9% IV 08/02/20 08:14 30 mls/hr .Q24H EKTA Administration Pertinent History/Comorbid Conditions* Medical History (Updated 06/18/20 @ 08:12 by Miguel Rivera DPM) Bloating Cachexia Carpal tunnel syndrome of right wrist Cervical disc disorder Delayed gastric emptying Diabetes mellitus Dysphagia History of anxiety History of COPD History of hemoptysis History of palpitations Hx of cataract Hx of hyperlipidemia Hx of hypotension Hx of osteoporosis Intervertebral cervical disc disorder with myelopathy, cervical region Joint instability Nausea Pituitary tumor PVC (premature ventricular contraction) Spondylolisthesis of cervical region Spondylolysis Ulnar nerve entrapment at elbow Surgical History (Updated 06/28/19 @ 15:42 by Chris Bell MD) Actinic keratosis H/O bladder repair surgery H/O local excision of skin lesion Excision of right forearm and right hand skin lesion, 02/2009, Dr. Chandler ([facility] [place] H/O right knee surgery History of carpal tunnel surgery of right wrist [place]1984 History of laryngoscopy History of pituitary surgery History of removal of implants of both breasts Hx of appendectomy Hx of breast implants, bilateral Hx of cholecystectomy Hx of foot surgery Hx of hernia repair Hx of hysterectomy Hx of neck surgery Hx of tonsillectomy S/P CABG (coronary artery bypass graft) S/P cervical spinal fusion C5-C7 ACDFF, [facility] [place] S/P decompression of ulnar nerve at elbow right, [place]1984 Status post Arpan fundoplication Family History (Updated 01/12/19 @ 13:15 by JOHN PAUL Garcia) Father, Age 48 Mother, Age 75 Heart disease Mother Myocardial infarction Father Cancer Mother Hypertension Mother Denies family history of Anesthesia complication Bleeding disorder Social History Smoking and tobacco status: former smoker Quit status (tobacco): has quit using tobacco Year quit tobacco: 1984 - 3PPD x 25 Years Second hand smoke exposure: No Smoking risk assessment/counseling performed?: No Alcohol intake: never Lives independently: Yes Household members: spouse Marital status: Current occupational status: employed 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
[2020-08-01 09:41] VITALS: BP 94/39; PULSE 62; RESP 16; TEMP 36.3; O2SAT 99
[2020-08-01 09:50] VITALS: BP 100/52
[2020-08-01 09:53] VITALS: BP 101/45; PULSE 63; RESP 18; O2SAT 96
--- NOTE | 2020-08-01 16:26 | ANE.PACU2 ---
Inpatient post-anesthesia follow up: Airway intact: Yes Vital signs: Temperature 97.3 F Pulse Rate 63 Respiratory Rate 18 Blood Pressure 101/45 Pulse Oximetry 96 Oxygen Delivery Me thod Room Air Oxygen Flow Rate 2 Fraction of Inspir ed Oxygen Hydration adequate: Yes Nausea and vomiting: No Pain level: 1 Mental status: Baseline
== END 2020-08-01 10:26 | disposition home or self-care (01) ==
PROVIDERS: PCP Nurse Practitioner Family; Visit Provider Internal Medicine
PROC: 0DJD8ZZ Inspection of Lower Intestinal Tract, Via Natural or Artificial Opening Endoscopic (ICD-10-PCS; CPT 45378; principal; 2020-08-01 09:00)
DX: Z12.11 Encounter for screening for malignant neoplasm of colon (principal); D12.4 Benign neoplasm of descending colon; K57.30 Diverticulosis of large intestine without perforation or abscess without bleeding; E11.9 Type 2 diabetes mellitus without complications; F41.9 Anxiety disorder, unspecified; J44.9 Chronic obstructive pulmonary disease, unspecified; E78.5 Hyperlipidemia, unspecified; M81.0 Age-related osteoporosis without current pathological fracture; Z87.891 Personal history of nicotine dependence; I25.10 Atherosclerotic heart disease of native coronary artery without angina pectoris; I10 Essential (primary) hypertension; I25.2 Old myocardial infarction; Z86.718 Personal history of other venous thrombosis and embolism
CPT/HCPCS: 36416; 45385; 82962; 88305; 96360; J2370; J2704; J7030

== ENCOUNTER → 2020-08-04 14:26 | Outpatient (BNVA) | payer MEDICARE, SELFPAY | PROVIDERS: PCP Nurse Practitioner Family; Visit Provider Nurse Practitioner Family | DX: Z20.822 Contact with and (suspected) exposure to COVID-19 (principal) | CPT/HCPCS: 87635 ==

== ENCOUNTER 2020-08-07 06:00 | Outpatient (CLI) | payer MEDICARE, SELFPAY ==
--- NOTE | 2020-08-07 07:14 | W.ED.GENADLT ---
HPI - General Adult General: Source: patient Mode of arrival: ambulatory Limitations: no limitations History of Present Illness: HPI narrative: Patient recently diagnosed with Covid and here for Covid infusion. Patient states she did have her Covid vaccine. complaint: Here for Covid infusion Severity: mild Exacerbating factors: none Associated symptoms: Reports cough; Deny chest pain, dyspnea, headache(s), nausea, rash or vomiting Treatments prior to arrival: none Review of Systems Const: Denies: fever(s) or chills Eyes: Denies: change in vision ENMT: Denies: throat pain Card: Denies: chest pain Resp: Reports: productive cough (Clear sputum); Denies: dyspnea or wheezing GI: Denies: abdominal pain, nausea or vomiting : Denies: flank pain Musc: Denies: neck pain or back pain Skin/Breast: Denies: rash or pruritus Neuro: Denies: headache(s) or numbness in extremities Psych: Denies: anxiety Gonzalez/Lymph: Denies: enlarged lymph nodes PFSH ED PFSH: Medical History Bloating Cachexia Carpal tunnel syndrome of right wrist Cervical disc disorder Delayed gastric emptying Diabetes mellitus Dysphagia History of anxiety History of COPD History of hemoptysis History of palpitations Hx of cataract Hx of hyperlipidemia Hx of hypotension Hx of osteoporosis Intervertebral cervical disc disorder with myelopathy, cervical region Joint instability Nausea Pituitary tumor PVC (premature ventricular contraction) 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 Chandler ([facility] [place]) H/O right knee surgery History of carpal tunnel surgery of right wrist [place]1984 History of laryngoscopy History of pituitary surgery History of removal of implants of both breasts Hx of appendectomy Hx of breast implants, bilateral Hx of cholecystectomy Hx of foot surgery Hx of hernia repair Hx of hysterectomy Hx of neck surgery Hx of tonsillectomy S/P CABG (coronary artery bypass graft) S/P cervical spinal fusion C5-C7 ACDFF, [facility] [place], 2005 S/P decompression of ulnar nerve at elbow right, [place], 1985 Status post Arpan fundoplication Family History Mother , Age 75 Hypertension Cancer Heart disease Father , Age 48 Myocardial infarction Denies family history of Anesthesia complication Bleeding disorder Social History Smoking and tobacco status: former smoker Quit status (tobacco): has quit using tobacco Year quit tobacco: 1984 - 3PPD x 25 Years Second hand smoke exposure: No Smoking risk assessment/counseling performed?: No Alcohol intake: never Lives independently: Yes Household members: spouse Marital status: Current occupational status: employed 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[employer] [place] History of recent travel: No Current gender identity: Female Physical Exam Const: COMMON NORMALS: no acute distress, patient oriented x3, no limitations and well nourished GENERAL APPEARANCE: cooperative HENMT: COMMON NORMALS: normocephalic and atraumatic HEAD & SCALP: normocephalic and atraumatic FACE & SINUS: normal facial exam Eye: COMMON NORMALS: EOMs intact bilaterally Neck/C-Spine: COMMON NORMALS: full ROM, no lymphadenopathy, supple and no meningeal signs GENERAL: Yes normal visual inspection Lymph: LYMPHATIC: no lymphadenopathy noted Chest: COMMONS NORMALS: normal inspection of the chest and normal palpation of entire chest wall CHEST: No Ecchymosis present and No rash Resp: COMMON NORMALS: normal respiratory effort, No retractions and clear to auscultation bilaterally EFFORT & INSPECTION: No respiratory distress AUSCULTATION: clear to auscultation bilaterally Cardio: COMMON NORMALS: regular rate, regular rhythm and Peripheral pulses 2+ throughout JUGULAR VENOUS DISTENTION: no JVD RATE: regular rate RHYTHM: regular rhythm PERIPHERAL PULSES: Peripheral pulses 2+ throughout GI: COMMON NORMALS: Normal to inspection, nondistended, normoactive bowel sounds present and non-tender : COMMON NORMALS: Yes no CVA tenderness BLADDER/KIDNEY EXAM: Yes no CVA tenderness Back/Pelvis: COMMON NORMALS: no CVA tenderness Extremity: COMMON NORMALS: normal to inspection, full ROM and capillary refill normal Neuro: COMMON NORMALS: patient oriented x3, CN's II-XII intact bilaterally, no focal motor deficits and no sensory deficits noted MENINGEAL SIGNS: Yes no meningeal signs Psych: COMMON NORMALS: mental status grossly normal and Normal thought process present THOUGHT PROCESS: Normal thought process present Skin: COMMON NORMALS: no rashes or lesions noted and no wounds GENERAL SKIN EXAM: no rashes or lesions noted Discharge Plan Discharge Patient Disposition: Home Prescriptions: No Action rosuvastatin 10 mg tablet 10 mg PO DAILY RF: 0 metformin 850 mg tablet 500 mg PO DAILY RF: 0 prednisone 2.5 mg tablet 5 mg PO DAILY 30 Days Qty: 60 RF: 4 (DME) Diabetic shoes with 3 pairs of inserts See Rx Instructions .Route .MEDSUPPLY Qty: 1 RF: 0 (DME) Diabetic Shoes See Rx Instructions .ROUTE .MEDSUPPLY Qty: 1 RF: 0 cetirizine 10 mg tablet 10 mg PO DAILY PRN (Reason: allergies) RF: 0 (DME) Custom Insoles See Rx Instructions .Route .MEDSUPPLY Qty: 1 RF: 0 (DME) Diabetic Shoes See Rx Instructions .Route .MEDSUPPLY Qty: 1 RF: 0 aspirin 81 mg Tablet,Delayed Release (Dr/Ec) 81 mg PO DAILY RF: 0 Hold Instructions: Resume on 08/18/19. carvedilol 3.125 mg Tablet 3.125 mg PO BID RF: 0 diltiazem HCl 60 mg Tablet 60 mg PO TID RF: 0 levothyroxine 25 mcg Capsule 25 mcg PO DAILY RF: 0 Trelegy Ellipta 100-62.5-25 mcg Blister With Device 1 inh INHALATION DAILY RF: 0 PreserVision AREDS [id number] Capsule 1 cap PO BID RF: 0 Referrals: Jesusita Soto NP [Primary Care Provider] - Coding Level of Care Code ED Tail Puller for Mick Thompson
[2020-08-07 07:55] VITALS: BP 104/58; PULSE 64; RESP 18; TEMP 36.9; O2SAT 94
[2020-08-07 09:00] VITALS: BP 108/62; PULSE 68; PULSE 88; RESP 18; O2SAT 98
== END 2020-08-07 06:01 | disposition home or self-care (01) ==
LOC: ER 06-24 09:05
PROVIDERS: PCP Family Medicine; Visit Provider Nurse Practitioner Family
DX: U07.1 COVID-19 (principal)
CPT/HCPCS: 96365

== ENCOUNTER 2020-09-04 14:15 | Outpatient (CLI) | payer MEDICARE, SELFPAY ==
--- NOTE | 2020-09-04 14:25 | XR_ITS ---
WS: [id number] PROCEDURE: XR chest 2V* [id number] CLINICAL INFORMATION: COUGH COMPARISON: September 03, 2019 FINDINGS: Heart: Normal cardiac silhouette. Lungs: Hyperinflation. Chronic emphysematous changes. No acute pulmonary infiltrates. No consolidatio n pleural fluid. Stimulator tubing projected over the right hemithorax. Bones: Osteopenia. Postoperative changes plate and screw fixation lower cervical spine. Cholecystecto my clips. XR/XR chest 2V* [id number] IMPRESSION: 1. Hyperinflation with chronic emphysematous changes. 2. No acute pulmonary infiltrates. 3. No acute chest findings.
== END 2020-09-04 14:16 | disposition home or self-care (01) ==
LOC: RAD 14:21
PROVIDERS: PCP Nurse Practitioner Family; Visit Provider Nurse Practitioner Family
DX: R05 Cough (principal)
CPT/HCPCS: 71046

== ENCOUNTER 2020-09-30 09:30 | Outpatient (CLI) | payer MEDICARE, SELFPAY ==
--- NOTE | 2020-09-30 09:35 | FL_ITS ---
WS: [id number] DOUBLE CONTRAST UPPER GI EXAMINATION HISTORY: K31.84 - Gastroparesis COMPARISON: 08/17/2018 FLUOROSCOPY TIME: 1.8 minutes. Status post fundoplication. Surgical clips at the GE junction and evidence for prior fundoplication. No reflux was demonstrated and no hiatal hernia. Good distention of the stomach with the barium mixture. There is appropriate emptying from the stomac h. Duodenal bulb was distensible and pliable. No filling defects noted. No gastroesophageal reflux No hiatal hernia was demonstrated on this exam. FL/VA upper GI w air* [id number] IMPRESSION: 1. Status post fundoplication. 2. No reflux or hiatal hernia demonstrated. 3. Normal emptying from the stomach. No gastroparesis.
== END 2020-09-30 09:31 | disposition home or self-care (01) ==
PROVIDERS: PCP Nurse Practitioner Family; Visit Provider Surgery
DX: K31.84 Gastroparesis (principal)
CPT/HCPCS: 74246

== ENCOUNTER 2020-10-03 07:24 | Outpatient (CLI) | payer MEDICARE, SELFPAY ==
--- NOTE | 2020-10-03 08:00 | NM_ITS ---
WS: [id number] NUCLEAR MEDICINE GASTRIC EMPTYING EXAMINATION HISTORY: K31.84 - Gastroparesis COMPARISON: 12/15/2017 TECHNIQUE: The patient ingested a meal containing an 0.03 mCi of Tc 99m sulfur colloid mixed with egg s. The patient was placed in supine position and imaging over the abdomen was performed for a total of 9 0 minutes. Computer acquisition with the region of interest placed over the stomach to evaluate gastr ic emptying half-time. Good radionuclide filling of the stomach after the meal. 50% emptying of the stomach near 45 minutes. This represents a significant improvement as compared to the prior study of 12/15/2017. NM/[place] [id number] IMPRESSION: Normal gastric emptying.
== END 2020-10-03 07:25 | disposition home or self-care (01) ==
PROVIDERS: PCP Nurse Practitioner Family; Visit Provider Surgery
DX: K31.84 Gastroparesis (principal)
CPT/HCPCS: 78264; A9541

== ENCOUNTER 2020-11-18 12:35 | Outpatient (CLI) | payer MEDICARE, SELFPAY ==
--- NOTE | 2020-11-18 12:45 | US_ITS ---
WS: [id number] US soft tissue/extremity [id number] REASON FOR EXAM: MASS OF R AXILLA FINDINGS: Real-time grayscale and color flow Doppler of the right axilla demonstrate normal axillary artery and vein. The only soft tissue abnormality identified is a 1.1 x 0.6 mm lymph node with a large fatty hilus. US/US soft tissue/extremity [id number] IMPRESSION: No significant abnormality.
== END 2020-11-18 12:36 | disposition home or self-care (01) ==
LOC: US 12:38
PROVIDERS: PCP Nurse Practitioner Family; Visit Provider Nurse Practitioner Family
DX: R22.31 Localized swelling, mass and lump, right upper limb (principal)
CPT/HCPCS: 76882

== ENCOUNTER 2020-12-02 08:27 | Outpatient (CLI) | payer MEDICARE, SELFPAY ==
--- NOTE | 2020-12-02 09:03 | CT_ITS ---
WS: [id number] CT CHEST AND ABDOMEN TECHNIQUE: Noncontrast CT of the chest and abdomen with coronal and sagittal reformatted images.. CLINICAL INFORMATION: CHRONIC OBSTRUCTIVE PULMONARY DISEASE,RECENT UNEXPLAIN WT LO COMPARISON: CTA chest June 02, [address] chest August 18, 2018 DLP: 569.[address] scans at [facility] use at least one of these dose optimization techniques: automated e xposure control; mA and/or kV adjustment per patient size (includes targeted exams where dose is matc hed to clinical indication); or iterative reconstruction. CT CHEST: Ectatic ascending thoracic aorta measuring 3.9 CM. Mild aortic calcification. Coronary calcification no mediastinal or hilar lymphadenopathy. No axillary lymphadenopathy. Small esophageal hiatal hernia. Moderate chronic emphysematous changes. No acute pulmonary infiltrates. Semisolid groundglass opacit y in the left upper lobe measuring 1.8 x 1.3 CM. This is new from previous. Small neoplasm not exclud ed. Recommend further evaluation with PET/CT. Bronchiectasis in the lung bases. Inflammatory appearing tree-in-bud infiltrates can be seen with sma ll airways disease in the lung bases. Subsegmental atelectasis right middle lobe. Small fibrotic appe aring opacities left greater than right lung apex. CT ABDOMEN: Noncontrast liver is normal. Cholecystectomy clips. Noncontrast spleen is normal. Small esophageal hi atal hernia. Postoperative changes GE junction. Adrenal glands are normal. Fatty atrophy noncontrast pancreas. Adrenal glands are normal. CT/CT chest abdomen wo con IMPRESSION: 1. Semisolid left upper lobe groundglass opacity has a suspicious appearance m easuring 1.8 x 1.3 CM. Recommend further evaluation with PET/CT. Recommend [address] follow-up. 2. Subsegmental atelectasis in the right middle lobe is new from previous with air bronchograms. 3. Moderate chronic emphysematous changes with fibrosis in the lung apices. 4. Bilateral lower lobe bronchiectasis with a few tree-in-bud opacities likely due to small airways disease. 5. Tiny polypoid nodule right proximal main stem bronchus measuring 3.5 mm. No obstruction. 6. Ectatic ascending thoracic aorta measuring 3.8 cm. 7. No acute findings in the noncontrast abdomen. 8. Small esophageal hiatal hernia.
[2020-12-02] MEDS: iohexol 300 mg/mL 50 mL Btl PO (10:07)
== END 2020-12-02 08:28 | disposition home or self-care (01) ==
PROVIDERS: PCP Nurse Practitioner Family; Visit Provider Family Medicine
DX: J44.9 Chronic obstructive pulmonary disease, unspecified (principal); R63.4 Abnormal weight loss; K44.9 Diaphragmatic hernia without obstruction or gangrene; I77.810 Thoracic aortic ectasia; R01.1 Cardiac murmur, unspecified; J98.11 Atelectasis
CPT/HCPCS: 71250; 74150; Q9967

== ENCOUNTER → 2021-02-12 13:04 | Outpatient (BNVA) | payer MEDICARE, SELFPAY | PROVIDERS: PCP Nurse Practitioner Family; Visit Provider Thoracic Surgery (Cardiothoracic Vascular Surgery) | DX: R91.8 Other nonspecific abnormal finding of lung field (principal) | CPT/HCPCS: 87635 ==

== ENCOUNTER → 2021-02-19 23:55 | Outpatient (BNVA) | payer MEDICARE, SELFPAY | PROVIDERS: PCP Nurse Practitioner Family; Visit Provider Thoracic Surgery (Cardiothoracic Vascular Surgery) | DX: R91.8 Other nonspecific abnormal finding of lung field (principal) | CPT/HCPCS: 87801 ==

== ENCOUNTER 2021-02-25 09:53 | Outpatient (CLI) | payer MEDICARE, SELFPAY ==
--- NOTE | 2021-02-25 13:59 | PFTS_ITS ---
Date of Study:02/25/21 Date of Dictation: 02/26/21 MECHANICS: Postbronchodilator forced vital capacity (FVC) is reduced. Postbronchodilator forced expiratory volume in one second (FEV1) is severely reduced 44%. FEV1/FVC is reduced. There is no significant response to bronchodilators FLOW VOLUME LOOP: Severe sloping of expiratory limb suggestive of severe airway obstruction . LUNG VOLUMES: Total lung capacity (TLC) is normal. Residual volume (RV) is increased suggestive of severe air trapping. DIFFUSING CAPACITY FOR CARBON MONOXIDE: Moderately reduced to 59% . INTERPRETATION: The pulmonary function tests are consistent with severe airway obstruction on spirometry, severe air trapping on lung volumes and moderate gas transfer defect. All these constellation of findings are consistent with emphysema, clinical correlation recommended. [facility]
== END 2021-02-25 09:54 | disposition home or self-care (01) ==
LOC: RT 09:56
PROVIDERS: PCP Family Medicine; Visit Provider Thoracic Surgery (Cardiothoracic Vascular Surgery)
DX: R91.8 Other nonspecific abnormal finding of lung field (principal)
CPT/HCPCS: 94060; 94726; 94729; J7611

== ENCOUNTER → 2021-03-03 11:01 | Outpatient (BNVA) | payer MEDICARE, MEDICAID, SELFPAY | PROVIDERS: PCP Family Medicine; Visit Provider Surgery | DX: Z11.52 Encounter for screening for COVID-19 (principal) | CPT/HCPCS: 87635 ==

== ENCOUNTER 2021-03-05 08:56 | Day surgery (SDC) | payer MEDICARE, SELFPAY ==
[2021-03-03 10:54] VITALS: BMI 16.9
--- NOTE | 2021-03-05 09:20 | ANES.PREANE2 ---
Pre-Anesthetic Assessment Height/Weight: Height 1.6 m Weight 43.545 kg Preop Diagnosis: Abnormal PET of GI system Operation Date: 03/05/21 10:15 Proposed Procedures p EGD 13111 R63.4(Not Applicable) - Edinson Chandler MD Was Beta Nacho taken within 24 hours: Yes Was Clonidine taken within 24 hours: N/A Social Tobacco and No alcohol Exam alert, oriented x 3 and regular rate & rhythm Airway Submandibular: within normal limits Cervical ROM: within normal limits Mallampati: Class II Dentition: false Pulmonary Chronic Obstructive Pulmonary Disease CV/HEM Arrythmia, Coronary Artery Disease (stents/cabg), Hypertension and Peripheral Vascular Disease GI gastroparesis Metabolic Diabetes Mellitus and Thyroid Disease Neuropsych Neuropathy Anesthetic Plan ASA status: 3 Anesthesia: MAC Risk of > 500 ml blood loss (7ml/kg in children): No Medications/Allergies Home Medications Medication Instructions Recorded Confirmed Last Taken Type aspirin 81 mg tablet,delayed 81 mg PO DAILY 02/12/19 03/03/21 07/31/20 07:00 History release carvedilol 3.125 mg tablet 3.125 mg PO BID 02/12/19 03/03/21 07/31/20 21:00 History fluticasone fur. 100 mcg-umeclid 1 inh INHALATION DAILY 02/12/19 03/03/21 08/01/20 06:00 History 62.5 mcg-vilant 25 mcg inhalat.powder (Trelegy Ellipta) levothyroxine 25 mcg capsule 25 mcg PO DAILY 02/12/19 03/03/21 07/31/20 06:00 History cetirizine 10 mg tablet 10 mg PO DAILY PRN tab 06/28/19 03/03/21 07/31/20 06:00 History rosuvastatin 10 mg tablet 10 mg PO DAILY 12/07/19 03/03/21 07/31/20 21:00 History Custom Insoles #1 ea 02/21/20 02/26/21 Unknown Rx Diabetic Shoes #1 ea 02/21/20 02/26/21 Unknown Rx Diabetic Shoes #1 ea 06/03/20 02/26/21 Unknown Rx vitamins A,C,R-qtyd-vicemk 14,320 1 cap PO DAILY 08/01/20 03/03/21 07/31/20 21:00 History unit-226 mg-200 unit capsule (PreserVision AREDS) Diabetic shoes with 3 pairs of #1 ea 09/22/20 02/26/21 Unknown Rx inserts diltiazem HCl 60 mg tablet 60 mg PO DAILY tab 02/12/21 03/03/21 Unknown History Allergies Allergy/AdvReac Type Severity Reaction Status Date / Time butorphanol [From Stadol] Allergy Severe ALGY-Swell Verified 03/03/21 10:53 Lip/Tongue/Throat losartan [From Cozaar] Allergy Severe ALGY-Rash Verified 03/03/21 10:53 metoprolol Allergy Rash, Verified 03/03/21 10:53 Itching atorvastatin [From Lipitor] AdvReac Severe ADR-Muscle Verified 03/03/21 10:53 Pain PFSH Anesthesia Medical History Bloating Cachexia Carpal tunnel syndrome of right wrist Cervical disc disorder Delayed gastric emptying Diabetes mellitus Dysphagia History of anxiety History of COPD History of hemoptysis History of palpitations Hx of cataract Hx of hyperlipidemia Hx of hypotension Hx of osteoporosis Intervertebral cervical disc disorder with myelopathy, cervical region Joint instability Nausea Pituitary tumor PVC (premature ventricular contraction) 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 Chandler ([facility] [place]) H/O right knee surgery History of carpal tunnel surgery of right wrist [place]1984 History of laryngoscopy History of pituitary surgery History of removal of implants of both breasts Hx of appendectomy Hx of breast implants, bilateral Hx of cholecystectomy Hx of foot surgery Hx of hernia repair Hx of hysterectomy Hx of neck surgery Hx of tonsillectomy S/P CABG (coronary artery bypass graft) S/P cervical spinal fusion C5-C7 ACDFF, [facility] [place], 2005 S/P decompression of ulnar nerve at elbow right, [place]1984 Status post Arpan fundoplication Family History Mother , Age 75 Hypertension Cancer Heart disease Father , Age 48 Myocardial infarction Denies family history of Anesthesia complication Bleeding disorder Social History Quit status (tobacco): has quit using tobacco Year quit tobacco: 1984 - 3PPD x 25 Years Second hand smoke exposure: No Smoking risk assessment/counseling performed?: No Alcohol intake: never Counseling given: No Counseling given: No Lives independently: Yes Household members: spouse Marital status: Current occupational status: employed 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
[2021-03-05 09:55] VITALS: BP 136/80; PULSE 58; RESP 18; TEMP 36.4; O2SAT 90
[2021-03-05 10:05] VITALS: PULSE 56; O2SAT 95
--- NOTE | 2021-03-05 10:08 | W.PM.OPSUD ---
Surgery/Procedure H&P Update DATE OF PROCEDURE: March 05, 2021 DATE H&P PERFORMED: 02/19/21 CHANGES TO PREVIOUS DOCUMENTATION: N/A PREOP DIAGNOSIS: Abnormal PET of GI system PRIMARY INDICATION FOR PROCEDURE: same PLANNED PROCEDURE: Operation Date: 03/05/21 10:15 Proposed Procedures p EGD 56402 R63.4(Not Applicable) - Edinson Chandler MD
--- NOTE | 2021-03-05 10:10 | PC.NURSE ---
extremities cool to touch. no edema.
[2021-03-05] MEDS: sodium chloride 0.9% 1,000 ML 30 ML IV (10:23)
[2021-03-05 10:37] VITALS: BP 90/49; PULSE 58; RESP 16; TEMP 36.2; O2SAT 100
[2021-03-05 10:40] VITALS: BP 90/48; PULSE 54; RESP 16; O2SAT 100
[2021-03-05 10:45] VITALS: BP 93/50; PULSE 52; RESP 18; TEMP 36.2; O2SAT 100
[2021-03-05 10:50] VITALS: BP 103/48; PULSE 58; RESP 18; O2SAT 97
--- NOTE | 2021-03-05 12:59 | ANE.PACU2 ---
Inpatient post-anesthesia follow up: Airway intact: Yes Vital signs: Temperature 97.2 F Pulse Rate 58 Respiratory Rate 18 Blood Pressure 103/48 Pulse Oximetry 97 Oxygen Delivery Me thod Room Air Oxygen Flow Rate 2 Fraction of Inspir ed Oxygen Hydration adequate: Yes Nausea and vomiting: No Pain level: 1 Mental status: Baseline
== END 2021-03-05 11:15 | disposition home or self-care (01) ==
PROVIDERS: PCP Family Medicine; Visit Provider Surgery
PROC: 0DJ08ZZ Inspection of Upper Intestinal Tract, Via Natural or Artificial Opening Endoscopic (ICD-10-PCS; CPT 43235; principal; 2021-03-05 10:15)
DX: R63.4 Abnormal weight loss (principal); Z68.1 Body mass index [BMI] 19.9 or less, adult; J44.9 Chronic obstructive pulmonary disease, unspecified; E11.9 Type 2 diabetes mellitus without complications; Z79.82 Long term (current) use of aspirin; Z95.1 Presence of aortocoronary bypass graft; Z87.891 Personal history of nicotine dependence; Z82.49 Family history of ischemic heart disease and other diseases of the circulatory system
CPT/HCPCS: 43235; J2704; J7030

== ENCOUNTER 2021-03-18 10:55 | Outpatient (CLI) | payer MEDICARE, SELFPAY ==
--- NOTE | 2021-03-18 11:15 | MM_ITS ---
WS: [id number] BILATERAL DIGITAL SCREENING MAMMOGRAPHY WITH CAD CLINICAL INFORMATION: SCREENING HISTORY: Screening mammogram. No current complaints. COMPARISON: March 03, 2020 TECHNIQUE: Bilateral CC and MLO views. FINDINGS: Prior removal of bilateral breast implants. The breasts are composed of heterogeneous fibroglandular density tissue, which can limit the detectio n of small underlying mass lesions. Vascular calcification. Parenchymal fibrosis and architectural di stortion bilaterally is unchanged related to prior implant removal. No suspicious mass, asymmetry, ca lcifications, or architectural distortion. No evidence of malignancy. MM/[place] [id number] IMPRESSION: BI-RADS: 2-Benign FOLLOW UP: 1 Year Follow-up Recommend return to annual screening mammography.
== END 2021-03-18 10:56 | disposition home or self-care (01) ==
PROVIDERS: PCP Family Medicine; Visit Provider Nurse Practitioner Family
DX: Z12.31 Encounter for screening mammogram for malignant neoplasm of breast (principal)
CPT/HCPCS: 77067

== ENCOUNTER 2021-03-26 14:55 | Day surgery (SDC) | payer MEDICARE, SELFPAY ==
[2021-03-26] VITALS (9 sets, daily range): BP systolic 113–161; BP diastolic 52–71; PULSE 58–99; RESP 12–18; TEMP 36.1–36.6; O2SAT 96–100; BMI 17.3
--- NOTE | 2021-03-26 15:28 | W.ED.GENADLT ---
HPI - General Adult General: Chief complaint: Airway/Esophagus Foreign Body Stated complaint: food stuck in throat Time Seen by Provider: 03/26/21 15:20 Source: patient Mode of arrival: ambulatory Limitations: no limitations History of Present Illness: 75-year-old female presents to the emergency room with piece of pork chop stuck in her throat. She is unable to swallow liquids or saliva. She states she had problems before getting things go down this been going on intermittently for years she has never had a obstruction she has never had aDilation or a EGD. Reviewing her chart I found that she had a Arpan fundoplication and hiatal hernia repair in 2017 with postoperative state that she had problems with delayed gastric emptying and had a pyloric myomectomy at the [facility]. More recently during the course of a work-up for left upper lung nodule patient had increased activity at the gastroesophageal junction and they recommended endoscopy she had seen Dr. Vicente who would put in his note that it was possible that this was due to the Arpan fundoplication that the PET scan seem to show a positive finding there. Called Dr. Dr. Chandelr he did do that EGD and biopsy about 10 days ago he said there was no significant findings there the suspicion that the the previous fundoplication because the PET scan abnormality was confirmed by that procedure. Onset (ago): hour(s) (1) Severity: moderate Quality: aching Pain Consistency: constant Relieving factors: none Exacerbating factors: none Associated symptoms: Deny chest pain, confusion, cough, diaphoresis, decreased appetite, dyspnea, fevers/chills, headache(s), malaise, rash, palpitations, seizures, short of breath, syncope, vomiting or weakness Treatments prior to arrival: none Review of Systems Const: Denies: malaise or diaphoresis ENMT: Denies: throat pain, ear or mastoid pain, nasal discharge or nasal congestion Card: Denies: chest pain, palpitations or syncope Resp: Denies: dyspnea GI: Denies: vomiting : Denies: flank pain, difficulty voiding, dysuria, urinary frequency or urinary urgency Skin/Breast: Denies: rash Neuro: Denies: headache(s) or confusion PFS ED PFSH: Medical History Actinic keratosis Carpal tunnel syndrome of right wrist Diabetes mellitus History of anxiety History of COPD Hx of cataract Hx of hyperlipidemia Hx of hypotension Hx of osteoporosis Intervertebral cervical disc disorder with myelopathy, cervical region Joint instability Pituitary tumor PVC (premature ventricular contraction) Ulnar nerve entrapment at elbow Surgical History H/O bladder repair surgery H/O esophagogastroduodenoscopy H/O local excision of skin lesion Excision of right forearm and right hand skin lesion, 02/2009, Dr. Chandler ([facility] [place] H/O right knee surgery History of carpal tunnel surgery of right wrist [place] History of colonoscopy with polypectomy 2020 History of laryngoscopy History of pituitary surgery History of removal of implants of both breasts Hx of appendectomy Hx of breast implants, bilateral Hx of cholecystectomy Hx of foot surgery Hx of hernia repair Hx of hysterectomy Hx of neck surgery Hx of tonsillectomy S/P CABG (coronary artery bypass graft) S/P cervical spinal fusion C5-C7 ACDFF, [facility] [place], [place] S/P decompression of ulnar nerve at elbow right, [place]1984 Status post Arpan fundoplication Family History Mother , Age 75 Hypertension Cancer Heart disease Father , Age 48 Myocardial infarction Denies family history of Anesthesia complication Bleeding disorder Social History Smoking and tobacco status: former smoker Quit status (tobacco): has quit using tobacco Year quit tobacco: 1984 - 3PPD x 25 Years Second hand smoke exposure: No Smoking risk assessment/counseling performed?: No Alcohol intake: never Counseling given: No Counseling given: No Lives independently: Yes Household members: spouse Marital status: Current occupational status: employed 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[place] Current occupational exposures/hazards: No History of recent travel: No Current gender identity: Female Physical Exam Const: GENERAL APPEARANCE: cooperative and comfortable ORIENTATION/CONSCIOUSNESS: Yes awake, Yes oriented to person, Yes oriented to place and Yes oriented to time HENMT: COMMON NORMALS: normocephalic, atraumatic and hearing grossly normal bilaterally HEAD & SCALP: normocephalic and atraumatic Neck/C-Spine: COMMON NORMALS: no JVD Resp: COMMON NORMALS: normal respiratory effort, No retractions, No use of accessory muscles and clear to auscultation bilaterally AUSCULTATION: clear to auscultation bilaterally Cardio: COMMON NORMALS: no JVD, regular rate, regular rhythm and No murmurs present (Cardio) RATE: regular rate RHYTHM: regular rhythm GI: COMMON NORMALS: Soft to palpation and No hepatosplenomegaly present AUSCULTATION: Yes normoactive bowel sounds PALPATION: Yes Soft to palpation, No Tenderness to palpation present (GI), No Guarding due to palpation present (GI) and Yes No hepatosplenomegaly present Neuro: SENSORIUM/ORIENTATION: Yes oriented to person, Yes oriented to place and Yes oriented to time Course Vital Signs: Vital signs: Vital Signs Temperature 97 F L 03/26/21 17:20 Pulse Rate 93 03/26/21 17:30 Respiratory Rate 16 03/26/21 17:30 Blood Pressure 118/52 03/26/21 17:30 Pulse Oximetry 96 03/26/21 17:30 MDM - General Adult Medical Decision Making Esophageal foreign body obstruction meat bolus. Discussed with Dr. Colunga. Reviewing her chart I found she also had some rather interesting findings on the PET scan she had just recently had an EGD with Dr. Chandler because of these findings however they seem to be related to increased tissue about the esophageal junction due to her fundoplication. Discussed with Dr. Chandler as well. He is not available Dr. Colunga we will go ahead and do the EGD to relieve the fluid bolus patient be discharged from the ER to GI Lab for procedure and then discharged home from there. Medical Records I reviewed the patient's medical records. Lab Data I reviewed the patient's lab results. Discharge Plan Discharge Patient Disposition: Home Clinical Impression: Esophageal foreign body, Abnormal gastrointestinal PET scan Condition: Stable Discharge Orders: Discharge Order (Routine); Ordered 03/26/21 Ordered By: Ayden Colunga Discharge ED (Routine); Ordered 03/26/21 Ordered By: Michael Isaacs Discharge Diet: Advance as tolerated Discharge Activity: Resume usual activity Coding Level of Care Code ED Flaking Roll Operator for Chg Fwd Exam Detailed
[2021-03-26] MEDS: sodium chloride 0.9% 1,000 ML 30 ML IV (16:28)
--- NOTE | 2021-03-26 16:55 | PM.HP ---
Providers/Chief Complaint Primary Care Provider: Rohan Putnam MD Chief Complaint: food stuck in throat History of Present Illness Makenzie Ambrocio is a 75 year old female who presented to the ER after she had a piece of pork chop stuck in her throat since 2 PM today. Patient states that she has never had any prior similar episodes in the past. She has had a prior Arpan's fundoplication. Patient denies any chest pain, abdominal pain, hematemesis. Patient had a EGD [address] Chandler which was essentially normal. Review of Systems General: Reports: 10 or more systems reviewed and unremarkable except in HPI and below Medications/Allergies Home Medications Medication Instructions Recorded Confirmed Last Taken Type aspirin 81 mg tablet,delayed 81 mg PO DAILY 02/12/19 03/25/21 03/03/21 History release carvedilol 3.125 mg tablet 3.125 mg PO BID 02/12/19 03/25/21 03/04/21 History fluticasone fur. 100 mcg-umeclid 1 inh INHALATION DAILY 02/12/19 03/25/21 03/05/21 History 62.5 mcg-vilant 25 mcg inhalat.powder (Trelegy Ellipta) levothyroxine 25 mcg capsule 25 mcg PO DAILY 02/12/19 03/25/21 03/05/21 History cetirizine 10 mg tablet 10 mg PO DAILY PRN tab 06/28/19 03/25/21 03/04/21 History rosuvastatin 10 mg tablet 10 mg PO DAILY 12/07/19 03/25/21 03/04/21 History Custom Insoles #1 ea 02/21/20 03/25/21 Unknown Rx Diabetic Shoes #1 ea 02/21/20 03/25/21 Unknown Rx Diabetic Shoes #1 ea 06/03/20 03/25/21 Unknown Rx vitamins A,C,T-mafs-fpkxfn 14,320 1 cap PO DAILY 08/01/20 03/25/21 03/04/21 History unit-226 mg-200 unit capsule (PreserVision AREDS) Diabetic shoes with 3 pairs of #1 ea 09/22/20 03/25/21 Unknown Rx inserts diltiazem HCl 60 mg tablet 60 mg PO DAILY tab 02/12/21 03/25/21 03/04/21 History Allergies Allergy/AdvReac Type Severity Reaction Status Date / Time butorphanol [From Stadol] Allergy Severe ALGY-Swell Verified 03/26/21 15:14 Lip/Tongue/Throat losartan [From Cozaar] Allergy Severe ALGY-Rash Verified 03/26/21 15:14 metoprolol Allergy Rash, Verified 03/26/21 15:14 Itching atorvastatin [From Lipitor] AdvReac Severe ADR-Muscle Verified 03/26/21 15:14 Pain PFSH Acute PFSH: Medical History Actinic keratosis Carpal tunnel syndrome of right wrist Diabetes mellitus History of anxiety History of COPD Hx of cataract Hx of hyperlipidemia Hx of hypotension Hx of osteoporosis Intervertebral cervical disc disorder with myelopathy, cervical region Joint instability Pituitary tumor PVC (premature ventricular contraction) Ulnar nerve entrapment at elbow Surgical History H/O bladder repair surgery H/O esophagogastroduodenoscopy H/O local excision of skin lesion Excision of right forearm and right hand skin lesion, 02/2009, Dr. Chandler ([facility] [place]) H/O right knee surgery History of carpal tunnel surgery of right wrist [place]1984 History of colonoscopy with polypectomy 2020 History of laryngoscopy History of pituitary surgery History of removal of implants of both breasts Hx of appendectomy Hx of breast implants, bilateral Hx of cholecystectomy Hx of foot surgery Hx of hernia repair Hx of hysterectomy Hx of neck surgery Hx of tonsillectomy S/P CABG (coronary artery bypass graft) S/P cervical spinal fusion C5-C7 ACDFF, [facility] [place], 2005 S/P decompression of ulnar nerve at elbow right, [place], 1984 Status post Arpan fundoplication Family History Mother , Age 75 Hypertension Cancer Heart disease Father , Age 48 Myocardial infarction Denies family history of Anesthesia complication Bleeding disorder Social History Smoking and tobacco status: former smoker Quit status (tobacco): has quit using tobacco Year quit tobacco: 1984 - 3PPD x 25 Years Second hand smoke exposure: No Smoking risk assessment/counseling performed?: No Alcohol intake: never Counseling given: No Counseling given: No Lives independently: Yes Household members: spouse Marital status: Current occupational status: employed 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[place] Current occupational exposures/hazards: No History of recent travel: No Current gender identity: Female Vitals/I&O/Wt Last Vital Signs Temp 97.9 F 03/26/21 16:15 Pulse 72 03/26/21 16:15 Resp 18 03/26/21 16:15 BP 141/59 03/26/21 16:15 Pulse Ox 99 03/26/21 16:15 Weight last 48 hrs Weight 98 lb Physical Exam Narrative: HEENT: Normocephalic Eye: Sclera /conjunctiva normal Abdomen: Soft to palpation Neurological: Oriented to place person and time Skin: Intact, no lesions appreciated on gross exam A&P Assessment and plan (1) Esophageal foreign body: 75-year-old female with history of Arpan's fundoplication who presents with esophageal obstruction due to food bolus. Patient denies any chest or abdominal pain. Plan for EGD with disimpaction of food bolus under general anesthesia today Procedure, risks, benefits and alternatives have been discussed with the patient who wishes to proceed with surgery. Status: Acute Attestations Medical Necessity Statement*: Esophageal obstruction due to food bolus requiring EGD Coding Level of Care Code Acute Tufter for [facility] Diagnoses Esophageal foreign body T18.108A
--- NOTE | 2021-03-26 16:59 | ANES.PREANE2 ---
Pre-Anesthetic Assessment Height/Weight: Height 1.6 m Weight 44.452 kg Temp Pulse Resp BP Pulse Ox 98 F 76 12 160/70 100 03/26/21 16:45 03/26/21 16:45 03/26/21 16:45 03/26/21 16:45 03/26/21 16:45 Preop Diagnosis: Esophageal obstruction due to food bolus Operation Date: 03/26/21 16:00 Proposed Procedures p EGD with removal of foreign object(Not Applicable) - Ayden Colunga MD Familial anesthetic complications: None Was Beta Nacho taken within 24 hours: N/A Was Clonidine taken within 24 hours: N/A Social No alcohol Exam alert, oriented x 3 and regular rate & rhythm rhonchi Airway Submandibular: within normal limits Cervical ROM: within normal limits Mallampati: Class II Dentition: false Pulmonary Chronic Obstructive Pulmonary Disease CV/HEM Arrythmia, Coronary Artery Disease (CABG) and Peripheral Vascular Disease GI Gastroesophageal Reflux Disease Musc/skel Osteoarthritis/DJD Anesthetic Plan ASA status: 3E Anesthesia: General (RSI) Medications/Allergies Home Medications Medication Instructions Recorded Confirmed Last Taken Type aspirin 81 mg tablet,delayed 81 mg PO DAILY 02/12/19 03/25/21 03/03/21 History release carvedilol 3.125 mg tablet 3.125 mg PO BID 02/12/19 03/25/21 03/04/21 History fluticasone fur. 100 mcg-umeclid 1 inh INHALATION DAILY 02/12/19 03/25/21 03/05/21 History 62.5 mcg-vilant 25 mcg inhalat.powder (Trelegy Ellipta) levothyroxine 25 mcg capsule 25 mcg PO DAILY 02/12/19 03/25/21 03/05/21 History cetirizine 10 mg tablet 10 mg PO DAILY PRN tab 06/28/19 03/25/21 03/04/21 History rosuvastatin 10 mg tablet 10 mg PO DAILY 12/07/19 03/25/21 03/04/21 History Custom Insoles #1 ea 02/21/20 03/25/21 Unknown Rx Diabetic Shoes #1 ea 02/21/20 03/25/21 Unknown Rx Diabetic Shoes #1 ea 06/03/20 03/25/21 Unknown Rx vitamins A,C,E-cxoh-sjmfeh 14,320 1 cap PO DAILY 08/01/20 03/25/21 03/04/21 History unit-226 mg-200 unit capsule (PreserVision AREDS) Diabetic shoes with 3 pairs of #1 ea 09/22/20 03/25/21 Unknown Rx inserts diltiazem HCl 60 mg tablet 60 mg PO DAILY tab 02/12/21 03/25/21 03/04/21 History Allergies Allergy/AdvReac Type Severity Reaction Status Date / Time butorphanol [From Stadol] Allergy Severe ALGY-Swell Verified 03/26/21 15:14 Lip/Tongue/Throat losartan [From Cozaar] Allergy Severe ALGY-Rash Verified 03/26/21 15:14 metoprolol Allergy Rash, Verified 03/26/21 15:14 Itching atorvastatin [From Lipitor] AdvReac Severe ADR-Muscle Verified 03/26/21 15:14 Pain Current Medications Generic Name Dose Route Start Last Admin Trade Name Freq PRN Reason Stop Dose Admin Sodium Chloride 1,000 mls @ 30 mls/hr 03/26/21 16:15 03/26/21 16:28 Sodium Chloride 0.9% IV 03/27/21 16:14 30 mls/hr .Q24H EKTA Administration PFSH Anesthesia Medical History Actinic keratosis Carpal tunnel syndrome of right wrist Diabetes mellitus History of anxiety History of COPD Hx of cataract Hx of hyperlipidemia Hx of hypotension Hx of osteoporosis Intervertebral cervical disc disorder with myelopathy, cervical region Joint instability Pituitary tumor PVC (premature ventricular contraction) Ulnar nerve entrapment at elbow Surgical History H/O bladder repair surgery H/O esophagogastroduodenoscopy H/O local excision of skin lesion Excision of right forearm and right hand skin lesion, 02/2009, Dr. Chandler ([facility] [place]) H/O right knee surgery History of carpal tunnel surgery of right wrist [place]1984 History of colonoscopy with polypectomy 2020 History of laryngoscopy History of pituitary surgery History of removal of implants of both breasts Hx of appendectomy Hx of breast implants, bilateral Hx of cholecystectomy Hx of foot surgery Hx of hernia repair Hx of hysterectomy Hx of neck surgery Hx of tonsillectomy S/P CABG (coronary artery bypass graft) S/P cervical spinal fusion C5-C7 ACDFF, [facility] [place], 2006 S/P decompression of ulnar nerve at elbow right, [place], 1985 Status post Arpan fundoplication Family History Mother , Age 75 Hypertension Cancer Heart disease Father , Age 48 Myocardial infarction Denies family history of Anesthesia complication Bleeding disorder Social History Smoking and tobacco status: former smoker Quit status (tobacco): has quit using tobacco Year quit tobacco: 1984 - 3PPD x 25 Years Second hand smoke exposure: No Smoking risk assessment/counseling performed?: No Alcohol intake: never Counseling given: No Counseling given: No Lives independently: Yes Household members: spouse Marital status: Current occupational status: employed 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
--- NOTE | 2021-03-26 17:00 | ANE.PACU2 ---
Inpatient post-anesthesia follow up: Airway intact: Yes Vital signs: Temperature 98 F Pulse Rate 76 Respiratory Rate 12 Blood Pressure 160/70 Pulse Oximetry 100 Oxygen Delivery Me thod Room Air Oxygen Flow Rate Fraction of Inspir ed Oxygen Hydration adequate: Yes Nausea and vomiting: No Pain level: 1 Mental status: Baseline
== END 2021-03-26 17:45 | disposition home or self-care (01) ==
LOC: ER 15:35 → GILAB 15:59
PROVIDERS: Emergency Provider Family Medicine; PCP Family Medicine; Visit Provider Surgery
PROC: 0DJ08ZZ Inspection of Upper Intestinal Tract, Via Natural or Artificial Opening Endoscopic (ICD-10-PCS; CPT 43235; principal; 2021-03-26 16:00)
DX: T18.128A Food in esophagus causing other injury, initial encounter (principal); J44.9 Chronic obstructive pulmonary disease, unspecified; Z95.1 Presence of aortocoronary bypass graft; K21.9 Gastro-esophageal reflux disease without esophagitis; Z79.82 Long term (current) use of aspirin; E11.9 Type 2 diabetes mellitus without complications; Z87.891 Personal history of nicotine dependence
CPT/HCPCS: 43247; J0330; J2704; J7030

== ENCOUNTER → 2021-04-07 14:30 | Outpatient (BNVA) | payer MEDICARE, SELFPAY | PROVIDERS: PCP Family Medicine; Visit Provider Nurse Practitioner Family | DX: Z20.822 Contact with and (suspected) exposure to COVID-19 (principal); Z87.09 Personal history of other diseases of the respiratory system; Z95.0 Presence of cardiac pacemaker; Z86.39 Personal history of other endocrine, nutritional and metabolic disease; J06.9 Acute upper respiratory infection, unspecified | CPT/HCPCS: 87635 ==

== ENCOUNTER → 2021-04-13 14:48 | Outpatient (BNVA) | payer MEDICARE, SELFPAY | PROVIDERS: PCP Family Medicine; Visit Provider Internal Medicine | DX: I25.10 Atherosclerotic heart disease of native coronary artery without angina pectoris (principal); Z86.39 Personal history of other endocrine, nutritional and metabolic disease; E11.9 Type 2 diabetes mellitus without complications; Z95.1 Presence of aortocoronary bypass graft | CPT/HCPCS: 99214 ==

== ENCOUNTER 2021-05-08 09:15 | Outpatient (CLI) | payer MEDICARE, SELFPAY ==
--- NOTE | 2021-05-08 09:30 | CT_ITS ---
WS: [id number] CT CHEST WITH INTRAVENOUS CONTRAST HISTORY: R91.8 - Other nonspecific abnormal finding of lung field TECHNIQUE: Contiguous 5 mm axial imaging performed on the thorax. Coronal and sagittal reformats are submitted. All CT scans at [facility] use at least one of these dose optimization techniques: automated exposure control; mA and/or kV adjustment per patient size (includes targeted exams where dose is matched to clinical indication); or iterative reconstruction. CONTRAST: Omnipaque 350; 95 mL IV. DLP: 416.94 mGy-cm. COMPARISON: 06/02/2020 and 08/18/2018 Lungs and central airway: Marked hyperinflation and emphysema. Irregular scattered ill-defined subcen timeter opacifications and areas of groundglass attenuation throughout both lungs. Previously describ ed PET/CT positive nodule in the RIGHT upper lobe is not present today. New bronchial wall thickening at the lung bases, RIGHT greater than LEFT. New area of subsegmental atelectasis RIGHT middle lobe. Mild bronchiectasis is developing in the RIGHT lower lung field. These findings have slightly progres sed since 06/02/2020. Pleura: Very mild pleural thickening and nodularity similar to prior studies. No effusion. Heart and pericardium: Marked enlargement of the heart. Heavy coronary artery calcifications. Mediastinum and nesha: No mediastinal or hilar adenopathy. Vessels: Moderate atherosclerotic plaque within the aorta. Pulmonary artery size is normal. Chest wall and lower neck: Subcentimeter bilateral thyroid nodules. No axillary adenopathy. Upper abdomen: Mild central hepatic bile duct dilatation. Common bile duct is dilated to 9 mm. Gallbl adder still appears to be present. The common bile duct is only partially visualized. Osseous structures: Mild increase in thoracic kyphosis. No destructive bone lesion. CT/CT chest w con* [id number] IMPRESSION: 1. Recently described PET/CT positive nodule in the RIGHT upper lobe is not ap parent today. This may have been an area of pneumonitis. 2. Progression of atelectasis in the RIGHT middle lobe with bronchial wall thi ckening in the lower lung dunbar bilaterally. 3. Mild scattered focal areas of pneumonitis have increased since 06/02/2020. 4. RIGHT lower lobe bronchiectasis. 5. Cardiomegaly. 6. Chronic emphysema.
[2021-05-08] MEDS: iohexol 350 mg/mL 100 mL Btl IV (11:51)
[2021-05-08 11:53] LABS: Blood Urea Nitrogen 13 mg/dL (8-23)
== END 2021-05-08 09:16 | disposition home or self-care (01) ==
PROVIDERS: PCP Family Medicine; Visit Provider Thoracic Surgery (Cardiothoracic Vascular Surgery)
DX: R91.8 Other nonspecific abnormal finding of lung field (principal); J98.11 Atelectasis; J47.9 Bronchiectasis, uncomplicated; I51.7 Cardiomegaly; J43.9 Emphysema, unspecified
CPT/HCPCS: 71260; 82565; 84520

== ENCOUNTER → 2021-06-08 12:53 | Outpatient (BNVA) | payer MEDICARE, SELFPAY | PROVIDERS: PCP Family Medicine; Visit Provider Internal Medicine Critical Care Medicine | DX: J47.9 Bronchiectasis, uncomplicated (principal); R91.8 Other nonspecific abnormal finding of lung field; Z87.891 Personal history of nicotine dependence; E11.8 Type 2 diabetes mellitus with unspecified complications; I10 Essential (primary) hypertension; E78.5 Hyperlipidemia, unspecified | CPT/HCPCS: 99214 ==

== ENCOUNTER 2021-06-10 16:41 | Outpatient (CLI) | payer MEDICARE, SELFPAY | END 2021-06-10 16:42 | disposition home or self-care (01) | LOC: LAB 16:43 | PROVIDERS: PCP Family Medicine; Visit Provider Family Medicine | DX: J47.9 Bronchiectasis, uncomplicated (principal) | CPT/HCPCS: 87015; 87070; 87077; 87116; 87186; 87205; 87206; 87801 ==

== ENCOUNTER → 2021-07-17 08:58 | Outpatient (BNVA) | payer MEDICARE, SELFPAY | PROVIDERS: PCP Family Medicine; Visit Provider Nurse Practitioner Family | DX: Z53.9 Procedure and treatment not carried out, unspecified reason (principal) | CPT/HCPCS: 99999 ==

== ENCOUNTER → 2021-08-03 10:36 | Outpatient (BNVA) | payer MEDICARE, SELFPAY | PROVIDERS: PCP Family Medicine; Visit Provider Podiatrist Foot & Ankle Surgery | DX: L60.3 Nail dystrophy (principal); E11.42 Type 2 diabetes mellitus with diabetic polyneuropathy; I73.9 Peripheral vascular disease, unspecified; M21.619 Bunion of unspecified foot; M20.41 Other hammer toe(s) (acquired), right foot; M20.42 Other hammer toe(s) (acquired), left foot; E11.21 Type 2 diabetes mellitus with diabetic nephropathy | CPT/HCPCS: 11721 ==

== ENCOUNTER 2021-08-20 09:45 | Outpatient (CLI) | payer MEDICARE, SELFPAY ==
--- NOTE | 2021-08-20 10:06 | XRR_ITS ---
PROCEDURE INFORMATION: Exam: XR Chest Exam date and time: 08/20/2021 10:20 AM Age: 75 years old Clinical indication: Cough and shortness of breath; Prior surgery; Surgery type: Open heart TECHNIQUE: Imaging protocol: Radiologic exam of the chest. Views: 2 views. PA and Lateral COMPARISON: CT chest w con* [id number] 05/08/2021 10:23 AM FINDINGS: Lungs: There is mild hyperinflation of lungs with some upper lung zone emphysema. There are no confluent interstitial or airspace opacities. Age-related interstitial prominence is seen in the lungs. Pleural spaces: There are no pleural effusions or pneumothorax. Heart/Mediastinum: The heart size is normal. The mediastinal contour is normal. The trachea is in the midline. Bones/joints: No acute abnormalities. Leads are seen extending cephalad to the right neck region over the right chest area. Postsurgical changes are seen status post prior lower cervical disc fusion. XR/XR chest 2V* [id number] IMPRESSION: No confluent infiltrates in the lungs.
== END 2021-08-20 09:46 | disposition home or self-care (01) ==
PROVIDERS: PCP Family Medicine; Visit Provider Thoracic Surgery (Cardiothoracic Vascular Surgery)
DX: R05.9 Cough, unspecified (principal); R06.02 Shortness of breath; J47.9 Bronchiectasis, uncomplicated; J44.9 Chronic obstructive pulmonary disease, unspecified; E03.9 Hypothyroidism, unspecified; R63.4 Abnormal weight loss; I10 Essential (primary) hypertension; E11.9 Type 2 diabetes mellitus without complications; I25.10 Atherosclerotic heart disease of native coronary artery without angina pectoris; M79.89 Other specified soft tissue disorders
CPT/HCPCS: 71046; 99213

== ENCOUNTER 2021-08-25 11:46 | Outpatient (CLI) | payer MEDICARE, SELFPAY ==
[2021-08-25 12:54] LABS: Basophils # 0.1 10^3/uL (0.0-0.1); Basophils % 0.9 %; Eosinophils # 0.5 10^3/uL (0.0-0.8); Eosinophils % 7.3 %; Hematocrit 40.3 % (37.0-47.0); Hemoglobin 13.2 g/dL (11.5-15.3); Lymphocytes # 1.6 10^3/uL (0.8-4.8); Lymphocytes % 24.1 %; Mean Corpuscular HGB Conc 32.8 g/dL (30.0-36.0); Mean Corpuscular Hemoglobin 28.4 pg (28.0-34.0); Mean Corpuscular Volume 86.9 fl (81-99); Mean Platelet Volume 12.4 fL (7.4-10.4); Monocytes # 0.5 10^3/uL (0.2-0.9); Monocytes % 7.5 %; Neutrophils # 4.01 10^3/uL (1.8-7.7); Neutrophils % 59.9 %; Nucleated Red Blood Cells % 0 %; Platelet Count 170 10^3/cmm (130-400); Red Blood Count 4.64 10^6/uL (4.1-5.3); Red Cell Distribution Width 13.8 % (12.1-15.1); White Blood Count 6.7 10^3/uL (4.0-10.0)
[2021-08-25 13:23] LABS: Estmated Average Glucose 163; Hemoglobin A1C 7.3 % (4.0-6.0)
[2021-08-25 13:31] LABS: Alanine Aminotransferase 27 U/L (0-33); Albumin Level 3.9 g/dL (3.5-5.2); Alkaline Phosphatase 109 IU/L (35-105); Anion Gap 12.2 (5-19); Aspartate Amino Transferase 30 U/L (0-32); Blood Urea Nitrogen 14 mg/dL (8-23); Calcium 9.4 mg/dL (8.5-10.5); Carbon Dioxide 30 mmol/L (22-29); Chloride 103 mmol/L (98-107); Chol HDL Ratio 1.58 mg/dL (0.0-4.40); Cholesterol 125 mg/dL (0-200); Globulin 2.3 g/dL (1.3-4.6); Glucose 93 mg/dL (65-115); HDL Cholesterol 79 mg/dL (60-100); LDL Cholesterol Calculated 35 mg/dL (50-129); LDL HDL Ratio 0.44 RATIO (0.00-3.22); Osmolality Calculated 292 mOsm/kg (285-295); Potassium 4.2 mmol/L (3.5-5.1); Sodium 141 mmol/L (136-145); Thyroid Stimulating Hormone 1.07 uIU/mL (0.27-4.20); Total Bilirubin 0.5 mg/dL (0.15-1.2); Total Protein 6.2 g/dL (6.6-8.7); Triglycerides 56 mg/dL (0-150)
== END 2021-08-25 11:47 | disposition home or self-care (01) ==
LOC: LAB 11:49
PROVIDERS: PCP Family Medicine; Visit Provider Family Medicine
DX: E03.9 Hypothyroidism, unspecified (principal); E11.9 Type 2 diabetes mellitus without complications; I10 Essential (primary) hypertension; I25.10 Atherosclerotic heart disease of native coronary artery without angina pectoris; J44.9 Chronic obstructive pulmonary disease, unspecified; R63.4 Abnormal weight loss
CPT/HCPCS: 36415; 80053; 80061; 83036; 84443; 85025

== ENCOUNTER 2021-09-01 12:37 | Outpatient (CLI) | payer MEDICARE, SELFPAY ==
[2021-09-04 18:03] LABS: Adenovirus Not Detected (Not Detected); Human Metapneumovirus Not Detected (Not Detected); Human Parainflu Virus 1 Not Detected (Not Detected); Human Parainflu Virus 2 Not Detected (Not Detected); Human Parainflu Virus 3 Not Detected (Not Detected); Human Rsv A Not Detected (Not Detected); Influenza A Not Detected (Not Detected); Influenza B Not Detected (Not Detected); Rhinovirus/Enterovirus Not Detected (Not Detected)
== END 2021-09-01 12:38 | disposition home or self-care (01) ==
PROVIDERS: PCP Family Medicine; Visit Provider Internal Medicine Critical Care Medicine
DX: R06.02 Shortness of breath (principal); R09.89 Other specified symptoms and signs involving the circulatory and respiratory systems; R50.9 Fever, unspecified
CPT/HCPCS: 87633

== ENCOUNTER 2021-09-07 10:06 | Emergency (ER) | payer MEDICARE, SELFPAY ==
[2021-09-07 10:26] VITALS: BP 115/59; PULSE 71; RESP 20; TEMP 36.7; O2SAT 92; BMI 16.2
--- NOTE | 2021-09-07 10:38 | ECG_ITS ---
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 Measurements Intervals Stanton Rate: 77 P: -32 MA: 168 QRS: -84 QRSD: 143 T: 3 QT: 413 QTc: 468 Interpretive Statements SINUS RHYTHM WITH FREQUENT SUPRAVENTRICULAR PREMATURE COMPLEXES RIGHT BUNDLE BRANCH BLOCK [120+ ms QRS DURATION, UPRIGHT V1, 40+ ms S IN I/aVL/V4/V5/V6] LEFT ANTERIOR FASCICULAR BLOCK [QRS AXIS <= -45, QR IN I, RS IN II] POSSIBLE ANTERIOR MYOCARDIAL INFARCTION , OF INDETERMINATE AGE [30 ms Q WAVE IN V3/V4, OR R < 0.2 mV IN V4] INTERPRETATION BASED ON A DEFAULT AGE OF 40 YEARS Compared to ECG 08/14/2019 10:29:47 Left anterior fascicular block now present Right-axis deviation no longer present T-wave abnormality no longer present Electronically Signed On 09-08-2021 7:03:47 CDT by Chris Bell M.D. [id number]
[2021-09-07 11:09] VITALS: BP 113/52; PULSE 67; RESP 27; O2SAT 96
--- NOTE | 2021-09-07 11:11 | XR_ITS ---
WS: [id number] PORTABLE CHEST HISTORY: dyspnea/cough COMPARISON: 08/20/2021 MORTGAGE OR LOAN UNDERWRITER shunt catheter projects over the RIGHT thorax. Short stent over the RIGHT heart. Focal atelectasis adjacent to the RIGHT heart was also seen on a prior CT from 05/08/2021. Hyperinflated lungs. No pneumonia. No nodule. No pleural effusion or pneumothorax. Cardiac size: Normal. Mediastinum/Aorta: Mild atherosclerosis aorta. Osteopenia. Prior cervical fusion. XR/XR chest 1V portable [id number] IMPRESSION: 1. No pneumonia. 2. Focal subsegmental atelectasis in the RIGHT middle lobe abuts the RIGHT hea rt border. Also noted on a prior CT from 05/08/2021 without improvement. 3. Chronic emphysema.
--- NOTE | 2021-09-07 11:17 | W.ED.SOB ---
HPI - SOB/Dyspnea General: Chief Complaint: Shortness of Breath/Dyspnea Stated Complaint: Needs Covid Test Time Seen by Provider: 09/07/21 10:59 Source: patient Mode of arrival: ambulatory Limitations: no limitations History of Present Illness: HPI Narrative: 75-year-old female presents emergency room with chronic shortness of breath severe COPD. Patient has had multiple problems with she has a new nodule that is been worked up according to pulmonology and looks like there is still some more follow-up DuoNebs. She has bronchiectasis and severe decrease in her FEV1. MD elicited complaint: shortness of breath Pertinent past history: COPD Onset (ago): month(s) Timing: constant Severity: moderate Exacerbating factors: exertion and coughing Relieving factors: nothing Known history of: COPD Associated symptoms: Reports chest congestion, chest pain and cough; Deny abdominal pain, diaphoresis, dizziness, extremity pain, fever(s), hemoptysis, lightheadedness, myalgias, nausea, orthopnea, palpitations, paresthesias, polydipsia, polyuria, rash, sense of impending doom, syncope or vomiting Treatment prior to arrival: none Review of Systems Const: Denies: fever(s), chills, fatigue, malaise or diaphoresis ENMT: Denies: throat pain, ear or mastoid pain, nasal discharge or nasal congestion Card: Reports: chest pain; Denies: palpitations, lightheadedness, syncope or orthopnea Resp: Reports: dyspnea, productive cough, wheezing and chest congestion; Denies: non-productive cough or hemoptysis GI: Denies: abdominal pain, nausea or vomiting : Denies: flank pain, difficulty voiding, dysuria, urinary frequency or urinary urgency Musc: Denies: neck pain, back pain or extremity pain Skin/Breast: Denies: rash or pruritus Neuro: Denies: dizziness Endo: Denies: polyuria or polydipsia PFSH ED PFSH: Medical History Actinic keratosis Carpal tunnel syndrome of right wrist Diabetes mellitus History of anxiety History of COPD Hx of cataract Hx of hyperlipidemia Hx of hypotension Hx of osteoporosis Intervertebral cervical disc disorder with myelopathy, cervical region Joint instability Pituitary tumor PVC (premature ventricular contraction) Ulnar nerve entrapment at elbow Surgical History H/O bladder repair surgery H/O esophagogastroduodenoscopy H/O local excision of skin lesion Excision of right forearm and right hand skin lesion, 02/2009, Dr. Chandler ([facility] [place]) H/O right knee surgery History of carpal tunnel surgery of right wrist [place] History of colonoscopy with polypectomy 2020 History of laryngoscopy History of pituitary surgery History of removal of implants of both breasts Hx of appendectomy Hx of breast implants, bilateral Hx of cholecystectomy Hx of foot surgery Hx of hernia repair Hx of hysterectomy Hx of neck surgery Hx of tonsillectomy S/P CABG (coronary artery bypass graft) S/P cervical spinal fusion C5-C7 ACDFF, [facility] [place], 2005 S/P decompression of ulnar nerve at elbow right, [place] Status post Arpan fundoplication Family History Mother , Age 75 Hypertension Cancer Heart disease Father , Age 48 Myocardial infarction Denies family history of Anesthesia complication Bleeding disorder Social History Smoking and tobacco status: never smoked Quit status (tobacco): has quit using tobacco Year quit tobacco: 1984 - 3PPD x 25 Years Second hand smoke exposure: No Smoking risk assessment/counseling performed?: No Alcohol intake: never Counseling given: No Counseling given: No Lives independently: Yes Household members: spouse Marital status: Current occupational status: employed 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[employer] [place] Current occupational exposures/hazards: No History of recent travel: No Current gender identity: Female Physical Exam Const: GENERAL APPEARANCE: cooperative and comfortable ORIENTATION/CONSCIOUSNESS: Yes awake, Yes oriented to person, Yes oriented to place and Yes oriented to time HENMT: COMMON NORMALS: normocephalic, atraumatic and hearing grossly normal bilaterally HEAD & SCALP: normocephalic and atraumatic Resp: AUSCULTATION: rhonchi and wheezes Cardio: COMMON NORMALS: regular rate, regular rhythm and No murmurs present (Cardio) RATE: regular rate RHYTHM: regular rhythm GI: COMMON NORMALS: Soft to palpation and No hepatosplenomegaly present AUSCULTATION: Yes normoactive bowel sounds PALPATION: Yes Soft to palpation, No Tenderness to palpation present (GI), No Guarding due to palpation present (GI) and Yes No hepatosplenomegaly present Extremity: COMMON NORMALS: normal to inspection, capillary refill normal, no clubbing, cyanosis or edema, no calf tenderness and no pedal edema Neuro: SENSORIUM/ORIENTATION: Yes oriented to person, Yes oriented to place and Yes oriented to time Skin: COMMON NORMALS: no rashes or lesions noted GENERAL SKIN EXAM: no rashes or lesions noted Course Vital Signs: Vital signs: Vital Signs Temperature 98.1 F 09/07/21 10:26 Pulse Rate 65 09/07/21 12:49 Respiratory Rate 20 H 09/07/21 12:49 Blood Pressure 104/58 09/07/21 12:49 Pulse Oximetry 91 09/07/21 12:49 Oxygen Delivery Me thod 09/07/21 12:17 Oxygen Flow Rate 2 09/07/21 10:26 MDM - SOB/Dyspnea Medical Decision Making Patient has severe COPD and essentially is at her baseline at this point. We did do a COVID test which was negative. Discussed Dr. Rutledge clinically she. She benefit from admission to the hospital. She is on a high level of oxygen but that is her chronic for her. We will discharge her home Dr. Rutledge states she would like to see her in the office tomorrow. Medical Records I reviewed the patient's medical records. Lab Data I reviewed the patient's lab results. : 09/07/21 11:09 09/07/21 11:09 Labs/Radiology: Radiology Impressions Chest X-Ray 09/07/21 11:11 IMPRESSION: 1. No pneumonia. 2. Focal subsegmental atelectasis in the RIGHT middle lobe abuts the RIGHT heart border. Also noted on a prior CT from 05/08/2021 without improvement. 3. Chronic emphysema. Laboratory Results WBC 6.5 10^3/uL (4.0-10.0) 09/07/21 11:09 RBC 4.94 10^6/uL (4.1-5.3) 09/07/21 11:09 Hgb 14.0 g/dL (11.5-15.3) 09/07/21 11:09 Hct 45.4 % (37.0-47.0) 09/07/21 11:09 MCV 91.9 fl (81-99) 09/07/21 11:09 MCH 28.3 pg (28.0-34.0) 09/07/21 11:09 MCHC 30.8 g/dL (30.0-36.0) 09/07/21 11:09 RDW 13.7 % (12.1-15.1) 09/07/21 11:09 Plt Count 170 10^3/cmm (130-400) 09/07/21 11:09 MPV 11.7 fL (7.4-10.4) H 09/07/21 11:09 Neut % (Auto) 62.8 % 09/07/21 11:09 Lymph % (Auto) 19.1 % 09/07/21 11:09 [place] % (Auto) 8.9 % 09/07/21 11:09 Eos % (Auto) 8.1 % 09/07/21 11:09 Baso % (Auto) 0.9 % 09/07/21 11:09 Neut # (Auto) 4.11 10^3/uL (1.8-7.7) 09/07/21 11:09 Lymph # (Auto) 1.3 10^3/uL (0.8-4.8) 09/07/21 11:09 [place] # (Auto) 0.6 10^3/uL (0.2-0.9) 09/07/21 11:09 Eos # (Auto) 0.5 10^3/uL (0.0-0.8) 09/07/21 11:09 Baso # (Auto) 0.1 10^3/uL (0.0-0.1) 09/07/21 11:09 Nucleated RBC % (auto) 0 % 09/07/21 11:09 Nucleated RBCs # 0.0 /100WBC 09/07/21 11:09 Specimen Type Arterial 09/07/21 11:56 Sample Site Radial, left 09/07/21 11:56 ABG pH 7.41 (7.35-7.45) 09/07/21 11:56 ABG pCO2 51.4 mmHg (35-45) H 09/07/21 11:56 ABG pO2 76.9 mmHg (80.0-100.0) L 09/07/21 11:56 ABG HCO3 32.6 mmol/L (22-26) H 09/07/21 11:56 ABG O2 Saturation 96.4 09/07/21 11:56 ABG Base Excess 6.6 mmol/L (-2.0-2.0) H 09/07/21 11:56 Richard Test Pos 09/07/21 11:56 A-a O2 Gradient 11.5 mmHg (5-10) H 09/07/21 11:56 Hematocrit 41.8 % (37-47) 09/07/21 11:56 Hgb O2 Saturation 94.9 % (95-100) L 09/07/21 11:56 Carboxyhemoglobin 0.8 %THgb (0.4-20.1) 09/07/21 11:56 Methemoglobin 0.7 % (0.4-1.5) 09/07/21 11:56 Total Hemoglobin 13.6 g/dL (12-16) 09/07/21 11:56 Sodium 140.0 mmol/L (131-143) 09/07/21 11:56 Potassium 3.8 mmol/L (3.5-5.0) 09/07/21 11:56 Glucose 155.0 mg/dL (70-115) H 09/07/21 11:56 Ionized Calcium 1.2 mmol/L (1.1-1.4) 09/07/21 11:56 O2 Delivery Device Nc 09/07/21 11:56 O2 Liters/Min 3.0 % 09/07/21 11:56 FiO2 32.0 % 09/07/21 11:56 Sales Service Promoter ID Ed 09/07/21 11:56 Sodium 140 mmol/L (136-145) 09/07/21 11:09 Potassium 3.8 mmol/L (3.5-5.1) 09/07/21 11:09 Chloride 103 mmol/L (98-107) 09/07/21 11:09 Carbon Dioxide 31 mmol/L (22-29) H 09/07/21 11:09 Anion Gap 9.8 (5-19) 09/07/21 11:09 BUN 13 mg/dL (8-23) 09/07/21 11:09 Creatinine 0.5 mg/dL (0.5-0.9) 09/07/21 11:09 GFR Calculation Not Reportable 09/07/21 11:09 Glucose 202 mg/dL (65-115) H 09/07/21 11:09 Calculated Osmolality 296 mOsm/kg (285-295) H 09/07/21 11:09 Calcium 9.1 mg/dL (8.5-10.5) 09/07/21 11:09 Total Bilirubin 0.4 mg/dL (0.15-1.2) 09/07/21 11:09 AST 37 U/L (0-32) H 09/07/21 11:09 ALT 31 U/L (0-33) 09/07/21 11:09 Alkaline Phosphatase 88 IU/L (35-105) 09/07/21 11:09 Total Protein 5.9 g/dL (6.6-8.7) L 09/07/21 11:09 Albumin 3.5 g/dL (3.5-5.2) 09/07/21 11:09 Globulin 2.4 g/dL (1.3-4.6) 09/07/21 11:09 Coronavirus 229E (PCR) Not detected (NOT DETECT) 09/07/21 11:07 SARS-CoV-2 (PCR) Not detected (NOT DETECT) 09/07/21 11:07 Discharge Plan Discharge Patient Disposition: Home Clinical Impression: Bronchiectasis Condition: Stable Prescriptions: No Action (DME) Diabetic Shoes See Rx Instructions .ROUTE .MEDSUPPLY Qty: 1 0RF Rx Instructions: As directed, with 3 pairs of inserts From Home. cetirizine 10 mg tablet 10 mg PO DAILY PRN (Reason: allergies) (DME) Custom Insoles See Rx Instructions .Route .MEDSUPPLY Qty: 1 0RF Rx Instructions: As directed (DME) Diabetic Shoes See Rx Instructions .Route .MEDSUPPLY Qty: 1 0RF Rx Instructions: As directed (DME) Diabetic Shoes with 3 sets of insoles See Rx Instructions .Route .MEDSUPPLY Qty: 1 0RF Rx Instructions: As directed by [facility] (DME) Custom arch supports See Rx Instructions .Route .MEDSUPPLY Qty: 1 0RF Rx Instructions: As directed by [facility] Trelegy Ellipta 100-62.5-25 mcg blister with device 1 inh INHALATION DAILY Qty: 60 2RF levothyroxine 25 mcg tablet 25 mcg PO DAILY Qty: 30 5RF furosemide 20 mg tablet 20 mg PO DAILY Qty: 30 0RF albuterol sulfate 90 mcg/actuation HFA aerosol inhaler 2 puff inhalation Q6H PRN (Reason: shortness of breath or wheezing) Qty: 8.5 2RF rosuvastatin 10 mg tablet 10 mg PO DAILY Qty: 90 1RF (DME) Diabetic shoes with 3 pairs of inserts See Rx Instructions .Route .MEDSUPPLY Qty: 1 0RF Rx Instructions: As directed [facility] carvedilol [Coreg] 6.25 mg tablet 6.25 mg PO BID Qty: 90 3RF Rx Instructions: must administer with a meal/food diltiazem HCl 60 mg tablet 60 mg PO DAILY Qty: 90 3RF tobramycin in 0.225 % NaCl 300 mg/5 mL solution for nebulization 300 mg inhalation BID 28 Days Qty: 280 6RF Rx Instructions: separate doses by at least 6 hours. 28 days on then 28 days off ciprofloxacin HCl 500 mg tablet 500 mg PO BID 10 Days Qty: 20 0RF aspirin 81 mg Tablet,Delayed Release (Dr/Ec) 81 mg PO DAILY Hold Instructions: Resume on 02/22/19. PreserVision AREDS [id number] Capsule 1 cap PO DAILY Discharge Orders: Discharge ED (Routine); Ordered 09/07/21 Ordered By: Michael Isaacs Referrals: Keanu Major DO [Primary Care Provider] - Discharge Diet: Usual diet Discharge Activity: Limit activity as instructed Patient Instructions: Opioid Safety Activity Restrictions/Additional Instructions: Your case was discussed with Dr. Rutledge today. He would like to see you tomorrow in his clinic where he will discuss further options for treatment of your chronic medical conditions. We did test you for COVID today in the emergency room and the result of that test is outstanding. Avoid exertional activities use all the medications you are previously prescribed as prescribed. If you have any significant worsening of symptoms return to the emergency room. Coding Level of Care Code ED Environmental Education Specialist for Mick Thompson Exam Detailed
[2021-09-07 11:19] LABS: Basophils # 0.1 10^3/uL (0.0-0.1); Basophils % 0.9 %; Eosinophils # 0.5 10^3/uL (0.0-0.8); Eosinophils % 8.1 %; Hematocrit 45.4 % (37.0-47.0); Lymphocytes # 1.3 10^3/uL (0.8-4.8); Lymphocytes % 19.1 %; Mean Corpuscular HGB Conc 30.8 g/dL (30.0-36.0); Mean Corpuscular Hemoglobin 28.3 pg (28.0-34.0); Mean Corpuscular Volume 91.9 fl (81-99); Mean Platelet Volume 11.7 fL (7.4-10.4); Monocytes # 0.6 10^3/uL (0.2-0.9); Monocytes % 8.9 %; Neutrophils # 4.11 10^3/uL (1.8-7.7); Neutrophils % 62.8 %; Nucleated Red Blood Cells % 0 %; Platelet Count 170 10^3/cmm (130-400); Red Blood Count 4.94 10^6/uL (4.1-5.3); Red Cell Distribution Width 13.7 % (12.1-15.1); White Blood Count 6.5 10^3/uL (4.0-10.0)
[2021-09-07 11:21] VITALS: BP 118/67; PULSE 63; RESP 23; O2SAT 95
[2021-09-07 12:02] LABS: Alanine Aminotransferase 31 U/L (0-33); Albumin Level 3.5 g/dL (3.5-5.2); Alkaline Phosphatase 88 IU/L (35-105); Anion Gap 9.8 (5-19); Aspartate Amino Transferase 37 U/L (0-32); Blood Urea Nitrogen 13 mg/dL (8-23); Calcium 9.1 mg/dL (8.5-10.5); Carbon Dioxide 31 mmol/L (22-29); Chloride 103 mmol/L (98-107); Creatinine Clr Calc Pharmacy 40.0275; Globulin 2.4 g/dL (1.3-4.6); Glucose 202 mg/dL (65-115); Osmolality Calculated 296 mOsm/kg (285-295); Potassium 3.8 mmol/L (3.5-5.1); Sodium 140 mmol/L (136-145); Total Bilirubin 0.4 mg/dL (0.15-1.2); Total Protein 5.9 g/dL (6.6-8.7)
[2021-09-07 12:06] LABS: ABG PCO2 51.4 mmHg (35-45); ABG PH Result 7.41 (7.35-7.45); Alveolar-Arterial Oxygen Gradi 11.5 mmHg (5-10); Arterial Blood Gas Hematocrit 41.8 % (37-47); Base Excess ABG 6.6 mmol/L (-2.0-2.0); Blood Gas Allen Test Pos; Blood Gas Operator Identificat ED; Blood Gas Sample Site Radial, left; Blood Gas Sample Type Arterial; Carboxyhemoglobin 0.8 %THgb (0.4-20.1); HCO3 ABG 32.6 mmol/L (22-26); HGB O2 Sat 94.9 % (95-100); Ionized Calcium Level - ABG 1.2 mmol/L (1.1-1.4); Methemoglobin 0.7 % (0.4-1.5); Oxygen Device NC; Oxygen Saturation ABG 96.4; PO2 ABG 76.9 mmHg (80.0-100.0); Potassium Level - ABG 3.8 mmol/L (3.5-5.0); Total Hemoglobin 13.6 g/dL (12-16)
[2021-09-07 12:17] VITALS: BP 117/51; PULSE 70; RESP 18; O2SAT 91
[2021-09-07 12:49] VITALS: BP 104/58; PULSE 65; RESP 20; O2SAT 91
[2021-09-07 13:11] LABS: Adenovirus Not Detected (NOT DETECT); Chlamydia Pneumoniae Not Detected (NOT DETECT); Coronavirus 229E,HKU1,NL63,OC4 Not Detected (NOT DETECT); Human Metapneumovirus Not Detected (NOT DETECT); Human Rhinovirus/Enterovirus Not Detected (NOT DETECT); Influenza A Not Detected (NOT DETECT); Influenza A H1 Not Detected (NOT DETECT); Influenza A H1-2009 Not Detected (NOT DETECT); Influenza A H3 Not Detected (NOT DETECT); Influenza B Not Detected (NOT DETECT); Mycoplasma Pneumoniae Not Detected (NOT DETECT); Parainfluenza Virus Type 1 Not Detected (NOT DETECT); Parainfluenza Virus Type 2 Not Detected (NOT DETECT); Parainfluenza Virus Type 3 Not Detected (NOT DETECT); Parainfluenza Virus Type 4 Not Detected (NOT DETECT); Respiratory Syncytial Virus A Not Detected (NOT DETECT); Respiratory Syncytial Virus B Not Detected (NOT DETECT); SARS-COV-2 Not Detected (NOT DETECT)
== END 2021-09-07 12:50 | disposition home or self-care (01) ==
PROVIDERS: Emergency Provider Family Medicine; PCP Family Medicine
DX: J47.9 Bronchiectasis, uncomplicated (principal); Z79.82 Long term (current) use of aspirin; E11.9 Type 2 diabetes mellitus without complications; J44.9 Chronic obstructive pulmonary disease, unspecified; E78.5 Hyperlipidemia, unspecified; Z95.1 Presence of aortocoronary bypass graft; Z87.891 Personal history of nicotine dependence; Z20.822 Contact with and (suspected) exposure to COVID-19
CPT/HCPCS: 36600; 71045; 80051; 80053; 82330; 82805; 85025; 87635; 93005; 99285

== ENCOUNTER → 2021-09-10 08:09 | Day surgery (SDC) | payer MEDICARE, SELFPAY ==
[2021-09-10 09:21] VITALS: BP 130/81; PULSE 81; RESP 18; TEMP 36.7; O2SAT 94
[2021-09-10] MEDS: cefepime 2,000 MG in sodium chloride 0.9% (plus) 50 ML 100 MG IV (09:22)
== END ==
PROVIDERS: PCP Family Medicine; Visit Provider Internal Medicine Critical Care Medicine
DX: J47.9 Bronchiectasis, uncomplicated (principal)
CPT/HCPCS: 36569; 96365; C1751; J0692

== ENCOUNTER → 2021-09-24 11:08 | Outpatient (BNVA) | payer MEDICARE, SELFPAY | PROVIDERS: PCP Family Medicine; Visit Provider Internal Medicine | DX: Z87.891 Personal history of nicotine dependence (principal); D35.2 Benign neoplasm of pituitary gland; E03.9 Hypothyroidism, unspecified; E11.9 Type 2 diabetes mellitus without complications | CPT/HCPCS: 99204 ==

== ENCOUNTER 2021-09-25 07:58 | Outpatient (CLI) | payer MEDICARE, SELFPAY ==
[2021-09-25 08:57] LABS: Erythrocyte Sedimentation Rate 7 mm/hr (0-15)
[2021-09-25 09:13] LABS: Follicle Stimulating Hormone 76.2 mIU/mL; Luteinizing Hormone 34.9 mIU/mL (0.5-41.7); Prolactin 17.68 ng/mL (4.8-23.3)
[2021-09-25 09:17] LABS: Alanine Aminotransferase 69 U/L (0-33); Albumin Level 4.2 g/dL (3.5-5.2); Alkaline Phosphatase 105 U/L (35-105); Anion Gap 12.9 (5-19); Aspartate Amino Transferase 60 U/L (0-32); Blood Urea Nitrogen 18 mg/dL (8-23); Calcium 9.4 mg/dL (8.5-10.5); Carbon Dioxide 29 mmol/L (22-29); Chloride 103 mmol/L (98-107); Globulin 2.2 g/dL (1.3-4.6); Glucose 179 mg/dL (65-115); Osmolality Calculated 298 mOsm/kg (285-295); Potassium 3.9 mmol/L (3.5-5.1); Sodium 141 mmol/L (136-145); Thyroid Stimulating Hormone 2.78 uIU/mL (0.27-4.20); Total Bilirubin 0.3 mg/dL (0.15-1.2); Total Protein 6.4 g/dL (6.6-8.7)
[2021-09-25 10:30] LABS: Cortisol Random 14.21 ug/dL (2.47-19.5)
[2021-09-29 15:12] LABS: Adrenocorticotropic Hormone 22 pg/mL (6-50)
[2021-10-01 11:53] LABS: IGF1 LC/MS 55 ng/mL (34-245); Z Score (Female) -1.1 SD (-2.0 - +2.0)
[2021-10-01 17:28] LABS: Estrogens Total 104.7 pg/mL
== END 2021-09-25 07:59 | disposition home or self-care (01) ==
LOC: LAB 08:00
PROVIDERS: PCP Family Medicine; Visit Provider Internal Medicine
DX: D35.2 Benign neoplasm of pituitary gland (principal); M79.89 Other specified soft tissue disorders; R63.4 Abnormal weight loss
CPT/HCPCS: 36415; 80053; 82024; 82533; 82672; 83001; 83002; 84146; 84305; 84439; 84443; 85651; 86140

== ENCOUNTER → 2021-10-09 09:05 | Outpatient (BNVA) | payer MEDICARE, SELFPAY | PROVIDERS: PCP Family Medicine; Visit Provider Internal Medicine Critical Care Medicine | DX: J47.0 Bronchiectasis with acute lower respiratory infection (principal); R91.8 Other nonspecific abnormal finding of lung field; Z87.891 Personal history of nicotine dependence | CPT/HCPCS: 99215 ==

== ENCOUNTER → 2021-10-14 13:57 | Outpatient (BNVA) | payer MEDICARE, SELFPAY | PROVIDERS: PCP Family Medicine; Visit Provider Internal Medicine | DX: I25.10 Atherosclerotic heart disease of native coronary artery without angina pectoris (principal); E78.5 Hyperlipidemia, unspecified; E11.9 Type 2 diabetes mellitus without complications; Z95.1 Presence of aortocoronary bypass graft; R07.89 Other chest pain; Z87.891 Personal history of nicotine dependence | CPT/HCPCS: 99213 ==

== ENCOUNTER 2021-10-15 15:17 | Outpatient (CLI) | payer MEDICARE, SELFPAY | END 2021-10-15 15:18 | disposition home or self-care (01) | LOC: LAB 15:19 | PROVIDERS: PCP Family Medicine; Visit Provider Internal Medicine Critical Care Medicine | DX: J47.9 Bronchiectasis, uncomplicated (principal) | CPT/HCPCS: 87070; 87077; 87186; 87205 ==

== ENCOUNTER → 2021-11-11 10:16 | Outpatient (BNVA) | payer MEDICARE, SELFPAY | PROVIDERS: PCP Family Medicine; Visit Provider Internal Medicine Critical Care Medicine | DX: J44.0 Chronic obstructive pulmonary disease with (acute) lower respiratory infection (principal); R06.00 Dyspnea, unspecified; R91.8 Other nonspecific abnormal finding of lung field; I49.9 Cardiac arrhythmia, unspecified | CPT/HCPCS: 71046; 99214 ==

== ENCOUNTER 2021-11-12 09:20 | Outpatient (CLI) | payer MEDICARE, SELFPAY | END 2021-11-12 09:21 | disposition home or self-care (01) | LOC: LAB 09:24 | PROVIDERS: PCP Family Medicine; Visit Provider Internal Medicine Critical Care Medicine | DX: J47.9 Bronchiectasis, uncomplicated (principal) | CPT/HCPCS: 87070; 87205 ==

== ENCOUNTER 2022-01-07 10:41 | Outpatient (CLI) | payer MEDICARE, SELFPAY ==
--- NOTE | 2022-01-07 11:00 | USCV_ITS ---
Lolly Makenzie Age: 76 Gender: F : 1945 Exam Date: 01/07/2022 10:53 Ordering Phys: Isaura Rutledge MD Technologist: Exam Location: [facility] [place] Indication: short of breath BP: 5 / 3 HR: 65 Rhythm: Sinus Technical Quality: Adequate MEASUREMENTS (Male / Female) Normal Values 2D ECHO LV Diastolic Diameter PLAX 3.5 cm 4.2 - 5.9 / 3.9 - 5.3 cm LV Systolic Diameter PLAX 2.5 cm IVS Diastolic Thickness 0.9 cm 0.6 - 1.0 / 0.6 - 0.9 cm IVS Systolic Thickness 0.9 cm LVPW Diastolic Thickness 1.0 cm 0.6 - 1.0 / 0.6 - 0.9 cm LVPW Systolic Thickness 0.9 cm LVOT Diameter 2.1 cm LV Ejection Fraction 2D Teich 55.0 % LV Ejection Fraction MOD 2C 60.5 % LV Ejection Fraction 2C AL 59.4 % LA Diameter 3.3 cm Aorta at Sinotubular Diameter 3.1 cm IVC Diameter 1.4 cm M-MODE LV Diastolic Diameter MM 4.6 cm 4.2 - 5.9 / 3.9 - 5.3 cm LV Systolic Diameter MM 2.4 cm LV Ejection Fraction MM Teich 79.5 % IVS Diastolic Thickness MM 0.9 cm 0.6 - 1.0 / 0.6 - 0.9 cm IVS Systolic Thickness MM 1.6 cm LVPW Diastolic Thickness MM 1.2 cm 0.6 - 1.0 / 0.6 - 0.9 cm LVPW Systolic Thickness MM 1.4 cm RV Diastolic Diameter MM 1.6 cm Aortic Annulus Diameter 2.7 cm LA Ao Ratio MM 1.1 MV E Point Septal Separation 0.8 cm DOPPLER AV Peak Velocity 106.0 cm/s LVOT Peak Velocity 91.0 cm/s AV Area Cont Eq vti 3.5 cm squared AV Area Cont Eq pk 3.0 cm squared MV Area PHT 5.0 cm squared Mitral E to A Ratio 1.5 MV E' Velocity 43.5 cm/s Mitral E to MV E' Ratio 9.9 Mitral E to LV E' Lateral Ratio 12.9 Mitral E to LV E' Septal Ratio 8.0 TR Peak Velocity 175.0 cm/s TR Peak Gradient 12.3 mmHg TV Peak E Velocity 94.0 cm/s Right Atrial Pressure 3.0 mmHg Pulmonary Artery Systolic Pressu 15.3 mmHg FINDINGS Left Ventricle Normal left ventricular cavity size. Normal left ventricular systolic function. Left ventricular ejection fraction is estimated at 55-60 %. No diagnostic regional wall motion abnormalities. Rhythm precludes evaluation of diastolic function. Right Ventricle Probably normal right ventricle size and systolic function. RVSP could not be calculated due to incomplete tricuspid regurgitation velocity profile. Right Atrium Normal right atrial size. Left Atrium Mildly increased left atrial size. Mitral Valve Mildly thickened mitral valve. No mitral valve stenosis. Trace mitral valve regurgitation. Aortic Valve Aortic valve not well visualized. Probably trileaflet aortic valve. No aortic valve stenosis. Trace aortic valve regurgitation. Tricuspid Valve Tricuspid valve not well visualized. Trace tricuspid valve regurgitation. Pulmonic Valve Pulmonic valve not well visualized. Pericardium No pericardial effusion. Aorta Normal size aortic root and proximal ascending aorta. IVC Normal IVC dimension with >50% respiratory change of the inferior vena cava. CONCLUSIONS 1. This is a technically difficult study. 2. Normal left ventricular cavity size and systolic function. Left ventricular ejection fraction is estimated at 55-60 %. No diagnostic regional wall motion abnormalities. 3. Probably normal right ventricle size and systolic function. 4. Trace aortic valve regurgitation. 5. When compared to study dated 03/11/2017, there may not have been any significant change. Deanne Fields MD (Electronically Signed) Final Date: 11 January 2022 17:49 S
== END 2022-01-07 10:42 | disposition home or self-care (01) ==
LOC: RAD 10:43
PROVIDERS: PCP Family Medicine; Visit Provider Internal Medicine Critical Care Medicine
DX: R06.02 Shortness of breath (principal); I35.1 Nonrheumatic aortic (valve) insufficiency
CPT/HCPCS: 93306

== ENCOUNTER 2022-01-15 08:32 | Outpatient (CLI) | payer MEDICARE, SELFPAY ==
--- NOTE | 2022-01-15 08:30 | CT_ITS ---
WS: [id number] EXAMINATION: CT chest wo con [id number] REASON FOR EXAM: f/u pneumonitis, atelectasis; worsening shortness of breath COMPARISON: None available. ORDER DATE: 01/15/2022 8:30 AM TOTAL EXAM DLP: 393.[address] scans at [facility] use at least one of these dose optimization techniques: automated ex posure control; mA and/or kV adjustment per patient size (includes targeted exams where dose is match ed to clinical indication); or iterative reconstruction. TECHNIQUE: Multiple axial images of the chest were obtained with 2-D imaging without the administration of contr ast. Evaluation of the mediastinum and nesha for adenopathy and other pathology is significantly limited by the lack of intravascular contrast. FINDINGS: Lungs and central airway: Marked hyperinflation and emphysema. There is a mucous strand located along the posterior wall of the mid trachea not present on the prior study. Irregular scattered ill-define d subcentimeter opacifications and areas of groundglass attenuation throughout both lungs. A solid no dule in the anterior right upper lobe 6 mm in size on the previous study now appears to be only appro ximately 2 mm. 2 mm nodule anterior right lower lobe axial image 42 is unchanged from previous as is a 4 mm left lower lobe nodule on the same slice. Scarring associated with a possible medial left lowe r lobe nodule 5 mm size on axial image 52 is also unchanged as is scarring associated with nodularity in the extreme right lung base on axial image 58. Unchanged atelectasis RIGHT middle lobe. Mild bron chiectasis is developing in the RIGHT lower lung. Pleura: Very mild pleural thickening and nodularity similar to prior studies. No effusion. Heart and pericardium: Marked enlargement of the heart. Severe coronary artery calcifications. Mediastinum and nesha: No mediastinal or hilar adenopathy. Vessels: Moderate atherosclerotic plaque within the aorta. Pulmonary artery size is normal. 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 No axillary adenopathy. Upper abdomen: Unchanged from previous Osseous structures: thoracic kyphosis. No destructive bone lesion. CT/CT chest wo con [id number] IMPRESSION: 1. Decreased size of a nodule in the anterior right lower lobe, remaining nodu les stable Unchanged atelectasis in the RIGHT middle lobe with bronchial wall t hickening in the lower lung dunbar bilaterally. 2. Mild scattered chronic reticulations stable 3. Cardiomegaly. 4. Chronic emphysema.
== END 2022-01-15 08:33 | disposition home or self-care (01) ==
LOC: RAD 08:33
PROVIDERS: PCP Family Medicine; Visit Provider Internal Medicine Pulmonary Disease
DX: J43.9 Emphysema, unspecified (principal); R91.8 Other nonspecific abnormal finding of lung field; I51.7 Cardiomegaly
CPT/HCPCS: 71250

== ENCOUNTER → 2022-01-18 12:36 | Outpatient (BNVA) | payer MEDICARE, SELFPAY | PROVIDERS: PCP Family Medicine; Visit Provider Internal Medicine Pulmonary Disease | DX: J45.909 Unspecified asthma, uncomplicated; R91.8 Other nonspecific abnormal finding of lung field; J47.0 Bronchiectasis with acute lower respiratory infection; I49.9 Cardiac arrhythmia, unspecified; Z87.891 Personal history of nicotine dependence | CPT/HCPCS: 99214 ==

== ENCOUNTER → 2022-02-09 08:37 | Outpatient (BNVA) | payer MEDICARE, SELFPAY | PROVIDERS: PCP Family Medicine; Visit Provider Podiatrist Foot & Ankle Surgery | DX: I73.9 Peripheral vascular disease, unspecified (principal); L60.3 Nail dystrophy; E11.42 Type 2 diabetes mellitus with diabetic polyneuropathy; M21.619 Bunion of unspecified foot; M20.41 Other hammer toe(s) (acquired), right foot; M20.42 Other hammer toe(s) (acquired), left foot; E11.21 Type 2 diabetes mellitus with diabetic nephropathy | CPT/HCPCS: 11721 ==

== ENCOUNTER 2022-03-22 10:56 | Outpatient (CLI) | payer MEDICARE, SELFPAY ==
--- NOTE | 2022-03-22 11:11 | MM_ITS ---
WS: [id number] SCREENING DIGITAL BREAST TOMOSYNTHESIS MAMMOGRAM WITH CAD HISTORY: Breast Cancer Screening Breast implants have been removed. COMPARISON: 03/18/2021, 03/03/2020 Bilateral CC and MLO with tomosynthesis and synthetic mammography submitted. Computer aided detection analyzed. Breast composition: The breasts are heterogeneously dense, which may obscure small masses. Nodular as ymmetry in the medial LEFT breast towards the inferior aspect. Not definitely seen on the lateral pro jection. This may be a mole or very superficial asymmetry. Very dense benign calcifications throughou t the RIGHT breast. MM/[place] [id number] IMPRESSION: BI-RADS: 0-Incomplete: Need additional imaging evaluation FOLLOW UP: Need Additional Imaging LEFT breast: Spot compression views (CC and MLO). True ML. Ultrasound to follow if abnormality persists. Evaluate for possible mole along the inferior breast in place marker if there is a mole present.
== END 2022-03-22 10:57 | disposition home or self-care (01) ==
LOC: RAD 11:06
PROVIDERS: PCP Family Medicine; Visit Provider Family Medicine
DX: Z12.31 Encounter for screening mammogram for malignant neoplasm of breast (principal)
CPT/HCPCS: 77063; 77067

== ENCOUNTER 2022-04-05 16:15 | Outpatient (CLI) | payer MEDICARE, SELFPAY ==
[2022-04-05 16:58] LABS: Basophils # 0.1 10^3/uL (0.0-0.1); Basophils % 0.9 %; Eosinophils # 0.5 10^3/uL (0.0-0.8); Eosinophils % 8.2 %; Hematocrit 46.9 % (37.0-47.0); Hemoglobin 14.8 g/dL (11.5-15.3); Lymphocytes # 1.5 10^3/uL (0.8-4.8); Lymphocytes % 27.6 %; Mean Corpuscular HGB Conc 31.6 g/dL (30.0-36.0); Mean Corpuscular Hemoglobin 28.4 pg (28.0-34.0); Mean Corpuscular Volume 89.8 fl (81-99); Mean Platelet Volume 12.5 fL (7.4-10.4); Monocytes # 0.6 10^3/uL (0.2-0.9); Monocytes % 10.8 %; Neutrophils # 2.86 10^3/uL (1.8-7.7); Neutrophils % 52.3 %; Nucleated Red Blood Cells % 0 %; Platelet Count 154 10^3/cmm (130-400); Red Blood Count 5.22 10^6/uL (4.1-5.3); White Blood Count 5.5 10^3/uL (4.0-10.0)
[2022-04-05 17:25] LABS: Alanine Aminotransferase 31 U/L (0-33); Albumin Level 4.1 g/dL (3.5-5.2); Alkaline Phosphatase 96 U/L (35-105); Anion Gap 13.6 (5-19); Aspartate Amino Transferase 30 U/L (0-32); Blood Urea Nitrogen 14 mg/dL (8-23); Calcium 9.8 mg/dL (8.5-10.5); Carbon Dioxide 29 mmol/L (22-29); Chloride 100 mmol/L (98-107); Free T4 Free Thyroxine 1.41 ng/dL (0.82-1.77); Globulin 3.1 g/dL (1.3-4.6); Glucose 146 mg/dL (65-115); Osmolality Calculated 289 mOsm/kg (285-295); Potassium 4.6 mmol/L (3.5-5.1); Sodium 138 mmol/L (136-145); Thyroid Stimulating Hormone 1.41 uIU/mL (0.27-4.20); Total Bilirubin 0.3 mg/dL (0.15-1.2); Total Protein 7.2 g/dL (6.6-8.7)
[2022-04-05 17:27] LABS: Estmated Average Glucose 163; Hemoglobin A1C 7.3 % (4.0-6.0)
== END 2022-04-05 16:16 | disposition home or self-care (01) ==
LOC: LAB 16:18
PROVIDERS: PCP Family Medicine; Visit Provider Family Medicine
DX: E03.9 Hypothyroidism, unspecified (principal); E11.9 Type 2 diabetes mellitus without complications; J44.9 Chronic obstructive pulmonary disease, unspecified; J47.9 Bronchiectasis, uncomplicated; G56.01 Carpal tunnel syndrome, right upper limb; Z86.39 Personal history of other endocrine, nutritional and metabolic disease; Z79.899 Other long term (current) drug therapy
CPT/HCPCS: 36415; 80053; 83036; 84439; 84443; 85025

== ENCOUNTER 2022-04-12 10:40 | Outpatient (CLI) | payer MEDICARE, SELFPAY ==
--- NOTE | 2022-04-12 11:00 | MM_ITS ---
WS: [id number] ADDITIONAL VIEWS LEFT MAMMOGRAM with tomosynthesis. LEFT BREAST ULTRASOUND HISTORY: Abnormal screening mammogram. COMPARISON: 03/22/2022, 03/18/2021 and 03/03/2018 LEFT MAMMOGRAM: Spot compression views and true ML with tomosynthesis and sympathetic mammography. 6 mm well-circumscribed mass persists in the medial LEFT breast near 9 or 10:00. Seen best on the CC projection. Ultrasound to follow. LEFT BREAST ULTRASOUND 2-D and color Doppler imaging submitted. There is a hypoechoic area of in the LEFT breast at 10:00, 2 cm from the nipple measuring 5 x 3 x 12 mm. This may or may not correspond to the mammographic abnormality. There are no additional areas of abnormality in the medial breast. MM/[id number] IMPRESSION: BI-RADS: 3-Probably Benign FOLLOW UP: 6 Month Follow-up Recommend diagnostic LEFT mammogram follow-up and possible ultrasound in 6 [place] hs. 6 mm nodule is really only seen on the LEFT CC projection. Suggest short-te rm follow-up to document any increase in size.
== END 2022-04-12 10:41 | disposition home or self-care (01) ==
LOC: RAD 10:44
PROVIDERS: PCP Family Medicine; Visit Provider Family Medicine
DX: R92.8 Other abnormal and inconclusive findings on diagnostic imaging of breast (principal)
CPT/HCPCS: 76642; 77061; G0279

== ENCOUNTER 2022-04-27 09:28 | Emergency (ER) | payer MEDICARE, SELFPAY ==
--- NOTE | 2022-04-27 09:38 | W.ED.FALL ---
HPI - Fall General: Stated Complaint: fall/head/wrist pain Time Seen by Provider: 04/27/22 09:36 Source: patient Mode of arrival: ambulatory History of Present Illness: MD complaint: fall Fall from: standing [facility] ED PFSH: Medical History Actinic keratosis Carpal tunnel syndrome of right wrist Diabetes mellitus History of anxiety History of COPD Hx of cataract Hx of hyperlipidemia Hx of hypotension Hx of osteoporosis Intervertebral cervical disc disorder with myelopathy, cervical region Joint instability Pituitary tumor PVC (premature ventricular contraction) Ulnar nerve entrapment at elbow Surgical History H/O bladder repair surgery H/O esophagogastroduodenoscopy H/O local excision of skin lesion Excision of right forearm and right hand skin lesion, 02/2009, Dr. Chandler ([facility] [place]) H/O right knee surgery History of carpal tunnel surgery of right wrist [place]1984 History of colonoscopy with polypectomy 2020 History of laryngoscopy History of pituitary surgery History of removal of implants of both breasts Hx of appendectomy Hx of breast implants, bilateral Hx of cholecystectomy Hx of foot surgery Hx of hernia repair Hx of hysterectomy Hx of neck surgery Hx of tonsillectomy S/P CABG (coronary artery bypass graft) S/P cervical spinal fusion C5-C7 ACDFF, [facility] [place], 2005 S/P decompression of ulnar nerve at elbow right, [place], 1984 Status post Arpan fundoplication Family History Mother , Age 75 Hypertension Cancer Heart disease Father , Age 48 Myocardial infarction Denies family history of Anesthesia complication Bleeding disorder Social History Smoking and tobacco status: former smoker Quit status (tobacco): has quit using tobacco Year quit tobacco: 1984 - 3PPD x 25 Years Second hand smoke exposure: No Smoking risk assessment/counseling performed?: No Alcohol intake: never Desire information about alcohol rehabilitation?: No Counseling given: No Desire information about substance/drug rehabilitation?: No Counseling given: No Adopted: No Caregiver/support person: No Lives independently: Yes Household members: spouse Marital status: Current occupational status: employed 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 cetirizine 10 mg tablet 10 mg PO DAILY PRN (Reason: allergies) (DME) Custom Insoles See Rx Instructions .Route .MEDSUPPLY Qty: 1 0RF Rx Instructions: As directed (DME) Diabetic Shoes See Rx Instructions .Route .MEDSUPPLY Qty: 1 0RF Rx Instructions: As directed (DME) Diabetic Shoes with 3 sets of insoles See Rx Instructions .Route .MEDSUPPLY Qty: 1 0RF Rx Instructions: As directed by JOHN PAUL&O (DME) Custom arch supports See Rx Instructions .Route .MEDSUPPLY Qty: 1 0RF Rx Instructions: As directed by JOHN PAUL&O levothyroxine 25 mcg tablet 25 mcg PO DAILY Qty: 30 5RF albuterol sulfate 90 mcg/actuation HFA aerosol inhaler 2 puff inhalation Q6H PRN (Reason: shortness of breath or wheezing) Qty: 8.5 2RF azithromycin 250 mg tablet 250 mg PO .COMPLEX 120 Days Qty: 60 0RF Rx Instructions: 250 mg PO; Tuesday albuterol sulfate 2.5 mg /3 mL (0.083 %) solution for nebulization 2.5 mg inhalation DAILY PRN (Reason: shortness of breath or wheezing) Qty: 180 3RF Hyper-Riley 3.5 % solution for nebulization 4 ml inhalation .q12 30 Days Qty: 240 4RF Rx Instructions: With chest vest (DME) Afflo Vest See Rx Instructions .Route .MEDSUPPLY Qty: 1 0RF Rx Instructions: twice daily. guaifenesin [Mucinex Fast-Max Chest-Congest] 100 mg/5 mL liquid 200 mg PO Q12H PRN (Reason: cough) Qty: 473 3RF Trelegy Ellipta 100-62.5-25 mcg blister with device 1 inh inhalation DAILY Qty: 60 3RF Rx Instructions: UNDER 340B furosemide 20 mg tablet 20 mg PO DAILY PRN (Reason: edema) Qty: 90 0RF (DME) Diabetic shoes with 3 pairs of inserts See Rx Instructions .Route .MEDSUPPLY Qty: 1 0RF Rx Instructions: As directed J P & O diltiazem HCl 60 mg tablet 60 mg PO DAILY Qty: 90 3RF (DME) INOGEN See Rx Instructions .Route .MEDSUPPLY Qty: 1 0RF Rx Instructions: Change portable oxygen source to INOGEN. (DME) Diabetic Shoes 3 sets of insoles See Rx Instructions .Route .MEDSUPPLY Qty: 1 0RF Rx Instructions: As directed by HOME prednisone 5 mg tablet 10 mg PO DAILY Qty: 60 3RF Rx Instructions: Take 10 mg for 28 days while on tobramycin, 5 mg every other day. carvedilol [Coreg] 6.25 mg tablet 6.25 mg PO BID Qty: 180 3RF Rx Instructions: must administer with a meal/food rosuvastatin 10 mg tablet See Rx Instructions .ROUTE .COMPLEX Qty: 90 1RF Dose Instruction: TAKE 1 TABLET BY MOUTH EVERY DAY Rx Instructions: TAKE 1 TABLET BY MOUTH EVERY DAY aspirin 81 mg Tablet,Delayed Release (Dr/Ec) 81 mg PO DAILY Hold Instructions: Resume on 08/18/19. PreserVision AREDS [id number] Capsule 1 cap PO DAILY Referrals: Keanu Major DO [Primary Care Provider] - Coding Level of Care Code ED Commissioner Of Officials for Mick Thompson
[2022-04-27 09:45] VITALS: BP 128/54; PULSE 56; RESP 18; TEMP 36.7; O2SAT 94; BMI 17.6
--- NOTE | 2022-04-27 09:45 | XR_ITS ---
WS: [id number] EXAMINATION: XR wrist RT min 3V* [id number] REASON FOR EXAM: fall/injury COMPARISON: None available. ORDER DATE: 04/27/2022 10:04 AM FINDINGS: There is severe osteoporosis/osteomalacia throughout the bones. There is chondrocalcinosis in the TFC C prominent atherosclerotic vascular calcifications are present. There is prominent osteoarthritic de generative changes at the first carpal metacarpal articulation with chronic subluxation.. XR/XR wrist RT min 3V* [id number] IMPRESSION: No acute fracture change. Numerous chronic changes as noted.
--- NOTE | 2022-04-27 09:45 | CT_ITS ---
WS: [id number] CT scan of the head, 04/27/2022 Clinical Data: fall/trauma Comparison: CTA of the head and neck, 10/02/2014, CT head, 10/02/2014 DLP: 1037.[address] scans at [facility] use at least one of these dose optimization techniques: automated e xposure control; mA and/or kV adjustment per patient size (includes targeted exams where dose is matc hed to clinical indication); or iterative reconstruction. Findings: The ventricular system show mild dilatation without shift. No recent infarct or hemorrhage is seen. T here are no abnormal intracerebral masses. The cerebellum and brainstem are not remarkable. Bony windows of the skull and skull base show no fractures or erosions. The mastoid air cells, analytics intern al auditory canals, sella turcica, intraorbital contents, and paranasal sinuses are unremarkable. CT/CT head wo con* [id number] Impression: Mild cerebral atrophy.
--- NOTE | 2022-04-27 09:45 | XR_ITS ---
WS: [id number] Right knee, 3 views, 04/27/2022 Clinical Data: fall/injury Comparison: None. Findings: No fractures or dislocations are seen. The medial and lateral joint spaces are narrow. There is spurr ing of the medial lateral femoral condyles. There is minimal irregularity of the right patella. There is vascular calcification. The soft tissues are unremarkable. XR/XR knee RT 3V* [id number] Impression: Mild osteoarthritis of the right knee Kellgren-Palmer Classification: grade 2 (minimal): definite osteophytes and p ossible joint space narrowing
--- NOTE | 2022-04-27 09:45 | W.ED.FALL ---
HPI - Fall General: Chief Complaint: Fall Stated Complaint: fall/head/wrist pain Time Seen by Provider: 04/27/22 09:36 Source: patient Mode of arrival: ambulatory Limitations: no limitations History of Present Illness: Patient is a nice 76-year-old female presents to ED today along with her for evaluation following a fall. 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 Patient states she struck the right side of her face/head and injured her right wrist and right knee. Patient has been ambulatory since the incident without difficulty. No LOC. She denies neck or back pain. She has a small laceration to the lateral aspect of her right orbit without much bony discomfort. Tetanus is up-to-date. MD complaint: fall Onset (ago): hour(s) Fall from: standing Fall witnessed: yes, by family Place fall occurred: care home/SNF and street Loss of consciousness: None Prolonged down time: no Symptoms prior to fall: none Context: tripped/slipped Location of injury: head and face Location of injury - extremities: Right: forearm and knee Severity: mild Associated symptoms-after fall: Reports no associated symptoms and headache(s); Denies abdominal pain, chest pain, difficulty walking, lightheadedness or neck pain Review of Systems Eyes: Denies: change in vision, blurry vision, photophobia, floaters or seeing flashes ENMT: Denies: ear discharge, nasal discharge or epistaxis Card: Denies: chest pain, palpitations, lightheadedness, syncope or pre-syncope Resp: Denies: dyspnea GI: Denies: abdominal pain, nausea or vomiting Musc: Reports: joint pain (R wrist, R knee); Denies: neck pain, back pain, extremity pain, extremity swelling, joint swelling, joint redness or limited range of motion Skin/Breast: Reports: other (abrasion to R anterior knee) Neuro: Reports: headache(s); Denies: numbness in extremities, weakness in extremities, sensory changes, difficulty walking or dizziness [facility] PFSH: Medical History Actinic keratosis Carpal tunnel syndrome of right wrist Diabetes mellitus History of anxiety History of COPD Hx of cataract Hx of hyperlipidemia Hx of hypotension Hx of osteoporosis Intervertebral cervical disc disorder with myelopathy, cervical region Joint instability Pituitary tumor PVC (premature ventricular contraction) Ulnar nerve entrapment at elbow Surgical History H/O bladder repair surgery H/O esophagogastroduodenoscopy H/O local excision of skin lesion Excision of right forearm and right hand skin lesion, 02/2009, Dr. Chandler ([facility] [place]) H/O right knee surgery History of carpal tunnel surgery of right wrist [place] History of colonoscopy with polypectomy 2020 History of laryngoscopy History of pituitary surgery History of removal of implants of both breasts Hx of appendectomy Hx of breast implants, bilateral Hx of cholecystectomy Hx of foot surgery Hx of hernia repair Hx of hysterectomy Hx of neck surgery Hx of tonsillectomy S/P CABG (coronary artery bypass graft) S/P cervical spinal fusion C5-C7 ACDFF, [facility] [place], 2005 S/P decompression of ulnar nerve at elbow right, [place] Status post Arpan fundoplication Family History Mother , Age 75 Hypertension Cancer Heart disease Father , Age 48 Myocardial infarction Denies family history of Anesthesia complication Bleeding disorder Social History Smoking and tobacco status: former smoker Quit status (tobacco): has quit using tobacco Year quit tobacco: 1984 - 3PPD x 25 Years Second hand smoke exposure: No Smoking risk assessment/counseling performed?: No Alcohol intake: never Desire information about alcohol rehabilitation?: No Counseling given: No Desire information about substance/drug rehabilitation?: No Counseling given: No Adopted: No Caregiver/support person: No Lives independently: Yes Household members: spouse Marital status: Current occupational status: employed 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[facility] [place] Current occupational exposures/hazards: No Current gender identity: Female Female Reproductive History: Spontaneous abortions: No Physical Exam Const: COMMON NORMALS: no acute distress, average body habitus, patient oriented x3, no limitations, healthy appearing, alert and well nourished GENERAL APPEARANCE: cooperative ORIENTATION/CONSCIOUSNESS: Yes awake, Yes oriented to person, Yes oriented to place and Yes oriented to time HENMT: COMMON NORMALS: normocephalic, atraumatic, TM's normal bilaterally and Normal external nose present HEAD & SCALP: normal to inspection, normocephalic and atraumatic; no Stanton's sign, no hematoma and no raccoon eyes FACE & SINUS: sinuses nontender; no crepitus, no ecchymosis, no erythema and no edema FACE & SINUS IMAGES: 1. small superficial laceration; no bony tenderness NOSE: Normal external nose present TYMPANIC MEMBRANE: TM's normal bilaterally MOUTH: other (no intraoral injuries noted) Eye: COMMON NORMALS: Equal, round and reactive pupils present and EOMs intact bilaterally GENERAL EYE: appearance normal, both eyes and all related structures and normal light reflex PUPIL: Yes Equal, round and reactive pupils present DIRECT OPHTHALMOSCOPY: Yes normal light reflex Neck/C-Spine: COMMON NORMALS: full ROM GENERAL: Yes normal visual inspection CERVICAL SPINE: Yes cervical ROM normal, No pain with cervical ROM, No Cervical spine tenderness, No step off deformity and No Paracervical muscle tenderness Chest: COMMONS NORMALS: normal inspection of the chest and normal palpation of entire chest wall Resp: COMMON NORMALS: normal respiratory effort and clear to auscultation bilaterally AUSCULTATION: clear to auscultation bilaterally Cardio: COMMON NORMALS: regular rate and regular rhythm RATE: regular rate RHYTHM: regular rhythm GI: COMMON NORMALS: Normal to inspection, nondistended, normoactive bowel sounds present, Soft to palpation, non-tender, No hepatosplenomegaly present and no masses INSPECTION: Yes normal to inspection and No abdominal wall ecchymosis AUSCULTATION: Yes normoactive bowel sounds PALPATION: Yes Soft to palpation and Yes No hepatosplenomegaly present Back/Pelvis: COMMON NORMALS: thoracic and lumbar spine normal to inspection, no thoracic nor lumbar tenderness and thoraco-lumbar ROM normal Extremity: COMMON NORMALS: full ROM GENERAL: Yes normal exam except as noted RIGHT UPPER EXTREMITY: Yes wrist (mild ecchymosis to dorsal R wrist; fairly good ROM) Right wrist: Yes palpation (slight tenderness) and Yes neurovascular exam (normal) RIGHT LOWER EXTREMITY: Yes knee joint (anterior knee abrasion; full ROM) Right knee: Yes palpation (mild tenderness ) Neuro: MICHELE COMA SCALE: document GCS findings Marathon coma scale eye opening: Spontaneous Michele coma scale verbal response: Orientated Marathon coma scale motor response: Obey commands Michele coma scale total score: 15 COMMON NORMALS: patient oriented x3, CN's II-XII intact bilaterally, moves all extremities, no focal motor deficits, no sensory deficits noted and gait normal SENSORIUM/ORIENTATION: Yes alert, Yes oriented to person, Yes oriented to place and Yes oriented to time SPEECH: speech normal GAIT: Yes Normal gait present Skin: COMMON NORMALS: no rashes or lesions noted GENERAL SKIN EXAM: no rashes or lesions noted TRAUMA: other (R lateral orbit lac; R knee abrasion) Course Vital Signs: Vital signs: Vital Signs Temperature 98.0 F 04/27/22 09:45 Pulse Rate 78 04/27/22 09:51 Respiratory Rate 18 04/27/22 09:45 Blood Pressure 128/54 04/27/22 09:51 Pulse Oximetry 94 04/27/22 09:45 Oxygen Delivery Me thod 04/27/22 09:45 MDM - Fall Medical Decision Making CT/XRs negative. Small facial laceration was irrigated and repaired with skin adhesive. Tetanus was UTD. Return ED precautions given. Lab Data Radiology Impressions Head CT 04/27/22 09:45 Impression: Mild cerebral atrophy. Knee X-Ray 04/27/22 09:45 Impression: Mild osteoarthritis of the right knee Kellgren-Palmer Classification: grade 2 (minimal): definite osteophytes and possible joint space narrowing Wrist X-Ray 04/27/22 09:45 IMPRESSION: No acute fracture change. Numerous chronic changes as noted. Discharge Plan Discharge Patient Disposition: Home Clinical Impression: Fall on same level from tripping Facial laceration Qualifiers: Encounter type: initial encounter Qualified Code(s): S01.81XA - Laceration without foreign body of other part of head, initial encounter Abrasion of right knee Qualifiers: Encounter type: initial encounter Qualified Code(s): S80.211A - Abrasion, right knee, initial encounter Contusion of right wrist Qualifiers: Encounter type: initial encounter Qualified Code(s): S60.211A - Contusion of right wrist, initial encounter Condition: Stable Prescriptions: No Action (DME) Diabetic Shoes See Rx Instructions .ROUTE .MEDSUPPLY Qty: 1 0RF Rx Instructions: As directed, with 3 pairs of inserts From Home. cetirizine 10 mg tablet 10 mg PO DAILY PRN (Reason: allergies) (DME) Custom Insoles See Rx Instructions .Route .MEDSUPPLY Qty: 1 0RF Rx Instructions: As directed ([facility]) Diabetic Shoes See Rx Instructions .Route .MEDSUPPLY Qty: 1 0RF Rx Instructions: As directed ([facility]) Diabetic Shoes with 3 sets of insoles See Rx Instructions .Route .MEDSUPPLY Qty: 1 0RF Rx Instructions: As directed by JOHN PAUL&O ([facility]) Custom arch supports See Rx Instructions .Route .MEDSUPPLY Qty: 1 0RF Rx Instructions: As directed by JOHN PAUL&O levothyroxine 25 mcg tablet 25 mcg PO DAILY Qty: 30 5RF albuterol sulfate 90 mcg/actuation HFA aerosol inhaler 2 puff inhalation Q6H PRN (Reason: shortness of breath or wheezing) Qty: 8.5 2RF azithromycin 250 mg tablet 250 mg PO .COMPLEX 120 Days Qty: 60 0RF Rx Instructions: 250 mg PO; Tuesday albuterol sulfate 2.5 mg /3 mL (0.083 %) solution for nebulization 2.5 mg inhalation DAILY PRN (Reason: shortness of breath or wheezing) Qty: 180 3RF Hyper-Riley 3.5 % solution for nebulization 4 ml inhalation .q12 30 Days Qty: 240 4RF Rx Instructions: With chest vest (DME) Afflo Vest See Rx Instructions .Route .MEDSUPPLY Qty: 1 0RF Rx Instructions: twice daily. guaifenesin [Mucinex Fast-Max Chest-Congest] 100 mg/5 mL liquid 200 mg PO Q12H PRN (Reason: cough) Qty: 473 3RF Trelegy Ellipta 100-62.5-25 mcg blister with device 1 inh inhalation DAILY Qty: 60 3RF Rx Instructions: UNDER 340B furosemide 20 mg tablet 20 mg PO DAILY PRN (Reason: edema) Qty: 90 0RF ([facility]) Diabetic shoes with 3 pairs of inserts See Rx Instructions .Route .MEDSUPPLY Qty: 1 0RF Rx Instructions: As directed J P & O diltiazem HCl 60 mg tablet 60 mg PO DAILY Qty: 90 3RF (DME) INOGEN See Rx Instructions .Route .MEDSUPPLY Qty: 1 0RF Rx Instructions: Change portable oxygen source to INOGEN. ([facility]) Diabetic Shoes 3 sets of insoles See Rx Instructions .Route .MEDSUPPLY Qty: 1 0RF Rx Instructions: As directed by HOME prednisone 5 mg tablet 10 mg PO DAILY Qty: 60 3RF Rx Instructions: Take 10 mg for 28 days while on tobramycin, 5 mg every other day. carvedilol [Coreg] 6.25 mg tablet 6.25 mg PO BID Qty: 180 3RF Rx Instructions: must administer with a meal/food rosuvastatin 10 mg tablet See Rx Instructions .ROUTE .COMPLEX Qty: 90 1RF Dose Instruction: TAKE 1 TABLET BY MOUTH EVERY DAY Rx Instructions: TAKE 1 TABLET BY MOUTH EVERY DAY aspirin 81 mg Tablet,Delayed Release (Dr/Ec) 81 mg PO DAILY Hold Instructions: Resume on 08/18/19. PreserVision AREDS [id number] Capsule 1 cap PO DAILY Discharge Orders: Discharge ED (Routine); Ordered 04/27/22 Ordered By: Camille Kaplan Referrals: Keanu Major DO [Primary Care Provider] - Coding Level of Care Code ED Mechanical Shop Laborer for Mick Thompson
[2022-04-27 09:51] VITALS: BP 128/54; PULSE 78
--- NOTE | 2022-04-27 10:01 | PC.NURSE ---
RIGHT EYE WOUND IRRIGATED WITH 50 ML OF NS PER PROVIDER INA STARK.
[2022-04-27 11:30] VITALS: PULSE 89; RESP 18; O2SAT 97
== END 2022-04-27 11:30 | disposition home or self-care (01) ==
PROVIDERS: Emergency Provider Physician Assistant; PCP Family Medicine
DX: S01.81XA Laceration without foreign body of other part of head, initial encounter (principal); S80.211A Abrasion, right knee, initial encounter; S60.211A Contusion of right wrist, initial encounter; Z79.82 Long term (current) use of aspirin; Z87.891 Personal history of nicotine dependence; Z95.1 Presence of aortocoronary bypass graft; J44.9 Chronic obstructive pulmonary disease, unspecified; E78.5 Hyperlipidemia, unspecified; W01.0XXA Fall on same level from slipping, tripping and stumbling without subsequent striking against object, initial encounter
CPT/HCPCS: 70450; 73110; 73562; 99284

== ENCOUNTER → 2022-04-29 10:39 | Outpatient (BNVA) | payer MEDICARE, SELFPAY | PROVIDERS: PCP Family Medicine; Visit Provider Internal Medicine Pulmonary Disease | DX: J44.9 Chronic obstructive pulmonary disease, unspecified (principal); Z87.891 Personal history of nicotine dependence; R91.8 Other nonspecific abnormal finding of lung field; R13.10 Dysphagia, unspecified; I49.9 Cardiac arrhythmia, unspecified | CPT/HCPCS: 99214 ==

== ENCOUNTER 2022-05-26 08:16 | Outpatient (CLI) | payer MEDICARE, SELFPAY ==
--- NOTE | 2022-05-26 08:30 | FL_ITS ---
WS: [id number] Barium swallow and esophagram, 05/26/2022 Clinical Data: Sensation of food sticking in her throat. Comparison: Upper GI series, 09/30/2020 Fluoroscopy time: 1min [id number] # of spot films: 6 Findings: The patient swallowed the thick and thin barium, and it flowed through the hypopharynx without hesita tion. There was aspiration and penetration of small amount of barium. There was impingement on the po sterior hypopharynx by a C5-C7 anterior cervical disc fusion. There are epidural stimulator leads in the cervical epidural space. The barium entered the esophagus and there was normal motility throughout. No hiatal hernia, reflux, stricture, polyp, mass, erosion or ulcer was noted. There were clips adjacent to the gastroesophageal junction from surgery. FL/FL barium swallow [id number] Impression: 1. Aspiration penetration of a small amount of barium with no post aspiration c oughing. 2. Slight impingement of the posterior hypopharynx by an anterior cervical disc fusion. 3. Negative esophagus with no evidence of any hiatal hernia or reflux.
== END 2022-05-26 08:17 | disposition home or self-care (01) ==
LOC: RAD 08:21
PROVIDERS: PCP Family Medicine; Visit Provider Internal Medicine Pulmonary Disease
DX: R13.10 Dysphagia, unspecified (principal); Z98.1 Arthrodesis status
CPT/HCPCS: 74220

== ENCOUNTER 2022-05-30 14:06 | Emergency (ER) | payer MEDICARE, SELFPAY ==
[2022-05-30 14:30] VITALS: BP 107/62; PULSE 71; TEMP 36.3; O2SAT 95; BMI 16.9
--- NOTE | 2022-05-30 14:33 | ECG_ITS ---
[facility] Test Date: 2022-05-30 Pat Name: Makenzie Ambrocio Department: Room: Gender: Female Clinical Auditor: : 1945 Requested By: Benji Tanner Order Number: [id number] Zoe MD: Chris Bell M.D. Measurements Intervals [place] Rate: 73 P: 0 NC: 0 QRS: -42 QRSD: 149 T: -39 QT: 423 QTc: 467 Interpretive Statements ATRIAL FIBRILLATION LEFT AXIS DEVIATION [QRS AXIS < -30] RIGHT BUNDLE BRANCH BLOCK [120+ ms QRS DURATION, UPRIGHT V1, 40+ ms S IN I/aVL/V4/V5/V6] VOLTAGE CRITERIA FOR LVH [MEETS CRITERIA IN ONE OF: R(aVL), S(V1), R(V5), R(V5/V6)+S(V1)] POSSIBLE ANTERIOR MYOCARDIAL INFARCTION , OF INDETERMINATE AGE [30 ms Q WAVE IN V3/V4, OR R < 0.2 mV IN V4] MODERATE T-WAVE ABNORMALITY, CONSIDER INFERIOR ISCHEMIA [-0.1+ mV T-WAVE IN II/aVF] INTERPRETATION BASED ON A DEFAULT AGE OF 40 YEARS Compared to ECG 09/07/2021 10:38:42 Left-axis deviation now present Electronically Signed On 05-31-2022 14:25:59 CDT by Chris Bell M.D. [id number] f
--- NOTE | 2022-05-30 14:33 | XRR_ITS ---
PROCEDURE INFORMATION: Exam: XR Chest Exam date and time: 05/30/2022 2:36 PM Age: 76 years old Clinical indication: Pain; Chest pressure; Additional info: Cp TECHNIQUE: Imaging protocol: Radiologic exam of the chest. Views: 1 view. COMPARISON: CT chest con [id number] 01/15/2022 8:51 AM FINDINGS: Tubes, catheters and devices: Electronic stimulator is present in the right upper quadrant the leads extend to the cervical spine Lungs: Unremarkable. No consolidation. Pleural spaces: Unremarkable. No pleural effusion. No pneumothorax. Heart/Mediastinum: Unremarkable. No cardiomegaly. Bones/joints: Orthopedic hardware is seen in the cervical spine XR/XR chest 1V portable [id number] IMPRESSION: 1. No acute findings. 2. Electronic stimulator right upper quadrant extending to the cervical spine 3. Orthopedic hardware cervical spine
[2022-05-30 14:49] VITALS: BP 102/73; PULSE 67; RESP 16; O2SAT 95
[2022-05-30 15:00] VITALS: BP 127/67; PULSE 67; RESP 18; O2SAT 96
[2022-05-30 15:16] LABS: Basophils # 0.1 10^3/uL (0.0-0.1); Basophils % 0.9 %; Eosinophils # 0.3 10^3/uL (0.0-0.8); Eosinophils % 4.3 %; Hematocrit 43.4 % (37.0-47.0); Hemoglobin 13.5 g/dL (11.5-15.3); Lymphocytes # 1.4 10^3/uL (0.8-4.8); Mean Corpuscular HGB Conc 31.1 g/dL (30.0-36.0); Mean Corpuscular Hemoglobin 28.1 pg (28.0-34.0); Mean Corpuscular Volume 90.4 fl (81-99); Mean Platelet Volume 12.1 fL (7.4-10.4); Monocytes # 0.6 10^3/uL (0.2-0.9); Monocytes % 8.7 %; Neutrophils # 4.28 10^3/uL (1.8-7.7); Neutrophils % 64.9 %; Nucleated Red Blood Cells % 0 %; Platelet Count 164 10^3/cmm (130-400); Red Cell Distribution Width 14.5 % (12.1-15.1); White Blood Count 6.6 10^3/uL (4.0-10.0)
--- NOTE | 2022-05-30 15:24 | W.ED.CHESTPA ---
HPI - Chest Pain General: Chief Complaint: Chest Pain Stated Complaint: chest pain/throat pain Time Seen by Provider: 05/30/22 15:14 History of Present Illness: Patient presents to the ER with complaints of heavy chest pressure that radiated under her left arm into her back but also up into her chin. This pain started at 730 this morning. Patient took 2 nitro with some relief but the pain started to come back. Patient does have a history of coronary artery disease with with an GA in the past. MD complaint: chest pain, chest heaviness and chest discomfort Pertinent past history: coronary artery disease and prior GA Onset (ago): hour(s) (Approximately 8 hours ago) Timing of current episode: constant (The waxing and waning) Prior episodes: Yes Onset: during rest Pain location: left chest Pain radiation: left arm, jaw/teeth and left shoulder Severity: mild Quality: aching and heaviness Relieving factors: nitroglycerin Exacerbating factors: palpation Associated symptoms: Reports no associated symptoms; Deny abdominal pain, dyspnea, fever(s), nausea, palpitations or vomiting Treatment prior to arrival: nitroglycerin Review of Systems General: Reports: 10 or more systems reviewed and unremarkable except in HPI and below Const: Denies: fever(s), chills or body aches Eyes: Denies: change in vision or blurry vision ENMT: Denies: throat pain or odynophagia Card: Reports: chest pain; Denies: palpitations, irregular heart rhythm or edema Resp: Denies: dyspnea or productive cough GI: Denies: abdominal pain, nausea, vomiting or diarrhea : Denies: flank pain, difficulty voiding or dysuria Musc: Denies: neck pain, back pain or extremity pain PFSH ED PFSH: Medical History Actinic keratosis Carpal tunnel syndrome of right wrist Diabetes mellitus History of anxiety History of COPD Hx of cataract Hx of hyperlipidemia Hx of hypotension Hx of osteoporosis Intervertebral cervical disc disorder with myelopathy, cervical region Joint instability Pituitary tumor PVC (premature ventricular contraction) Ulnar nerve entrapment at elbow Surgical History H/O bladder repair surgery H/O esophagogastroduodenoscopy H/O local excision of skin lesion [place]cision of right forearm and right hand skin lesion[place] [place] right knee surgery History of carpal tunnel surgery of right wrist [place] History of colonoscopy with polypectomy 2020 History of laryngoscopy History of pituitary surgery History of removal of implants of both breasts Hx of appendectomy Hx of breast implants, bilateral Hx of cholecystectomy Hx of foot surgery Hx of hernia repair Hx of hysterectomy Hx of neck surgery Hx of tonsillectomy S/P CABG (coronary artery bypass graft) S/P cervical spinal fusion C5-C7 [place] [facility] [place] S/P decompression of ulnar nerve at elbow right, [place] Status post Arpan fundoplication Family History Mother , Age 75 Hypertension Cancer Heart disease Father , Age 48 Myocardial infarction Denies family history of Anesthesia complication Bleeding disorder Social History Smoking and tobacco status: former smoker Quit status (tobacco): has quit using tobacco Year quit tobacco: 1984 - 3PPD x 25 Years Second hand smoke exposure: No Smoking risk assessment/counseling performed?: No Alcohol intake: never Desire information about alcohol rehabilitation?: No Counseling given: No Substance/Drug Use: never Desire information about substance/drug rehabilitation?: No Counseling given: No Adopted: No Caregiver/support person: No Lives independently: Yes Household members: spouse Marital status: Current occupational status: employed Current occupation: [employer] [place] [employer] [place] Current occupational exposures/hazards: No Do you think of yourself as: Straight/Heterosexual Current gender identity: Female Female Reproductive History: Spontaneous abortions: No Physical Exam Const: COMMON NORMALS: no acute distress, average body habitus, patient oriented x3, no limitations, healthy appearing, alert and well nourished HENMT: COMMON NORMALS: normocephalic, atraumatic, hearing grossly normal bilaterally, external ears normal, Normal external nose present and moist oral mucous membranes HEAD & SCALP: normocephalic and atraumatic NOSE: Normal external nose present EXTERNAL EAR: Yes external ears normal Eye: COMMON NORMALS: Equal, round and reactive pupils present, EOMs intact bilaterally, conjunctivae normal and no scleral icterus CONJUNCTIVA: Yes conjunctivae normal PUPIL: Yes Equal, round and reactive pupils present Neck/C-Spine: COMMON NORMALS: full ROM, no lymphadenopathy, supple, no meningeal signs, no JVD and Thyroid normal THYROID: Thyroid normal Chest: COMMONS NORMALS: normal inspection of the chest OTHER: Palpation of left chest Resp: COMMON NORMALS: normal respiratory effort, No retractions, No use of accessory muscles and clear to auscultation bilaterally AUSCULTATION: clear to auscultation bilaterally Cardio: COMMON NORMALS: no JVD, regular rate, regular rhythm, S1 normal heart sound present, S2 normal heart sound present, No gallops present (Cardio), No clicks present (Cardio) and No murmurs present (Cardio) RATE: regular rate RHYTHM: regular rhythm HEART SOUNDS: S1 normal heart sound present and S2 normal heart sound present GI: COMMON NORMALS: Normal to inspection, nondistended, normoactive bowel sounds present, Soft to palpation, non-tender, No hepatosplenomegaly present and no masses PALPATION: Yes Soft to palpation and Yes No hepatosplenomegaly present : COMMON NORMALS: Yes no CVA tenderness BLADDER/KIDNEY EXAM: Yes no CVA tenderness Back/Pelvis: COMMON NORMALS: no CVA tenderness Neuro: COMMON NORMALS: patient oriented x3 SENSORIUM/ORIENTATION: Yes alert MENINGEAL SIGNS: Yes no meningeal signs Course Vital Signs: Vital signs: Vital Signs Temperature 97.4 F L 05/30/22 14:30 Pulse Rate 70 05/30/22 16:00 Respiratory Rate 18 05/30/22 16:00 Blood Pressure 120/63 05/30/22 16:00 Pulse Oximetry 95 05/30/22 16:00 Oxygen Delivery Me thod Room Air 05/30/22 14:30 MDM - Chest Pain Medical Decision Making Patient presents to the ER with complaints of chest pain waxes and wanes today. Sometimes radiates up into underneath her left arm and up into her chin. Patient took 2 nitro today with mild relief. Upon further history and physical exam of the patient as far as lab work and serial troponins and EKGs that showed serial troponin had a delta of 6 and chest x-ray was negative. 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 Differential Diagnosis Unlikely acute massive pulmonary embolism, acute respiratory failure, acute myocardial infarction, cardiac arrest or sudden cardiac Lab Data I reviewed the patient's lab results. 05/30/22 14:46 05/30/22 14:46 Radiology Impressions Chest X-Ray 05/30/22 14:33 IMPRESSION: 1. No acute findings. 2. Electronic stimulator right upper quadrant extending to the cervical spine 3. Orthopedic hardware cervical spine Laboratory Results WBC 6.6 10^3/uL (4.0-10.0) 05/30/22 14:46 RBC 4.80 10^6/uL (4.1-5.3) 05/30/22 14:46 Hgb 13.5 g/dL (11.5-15.3) 05/30/22 14:46 Hct 43.4 % (37.0-47.0) 05/30/22 14:46 MCV 90.4 fl (81-99) 05/30/22 14:46 MCH 28.1 pg (28.0-34.0) 05/30/22 14:46 MCHC 31.1 g/dL (30.0-36.0) 05/30/22 14:46 RDW 14.5 % (12.1-15.1) 05/30/22 14:46 Plt Count 164 10^3/cmm (130-400) 05/30/22 14:46 MPV 12.1 fL (7.4-10.4) H 05/30/22 14:46 Neut % (Auto) 64.9 % 05/30/22 14:46 Lymph % (Auto) 21.0 % 05/30/22 14:46 [place] % (Auto) 8.7 % 05/30/22 14:46 Eos % (Auto) 4.3 % 05/30/22 14:46 Baso % (Auto) 0.9 % 05/30/22 14:46 Neut # (Auto) 4.28 10^3/uL (1.8-7.7) 05/30/22 14:46 Lymph # (Auto) 1.4 10^3/uL (0.8-4.8) 05/30/22 14:46 [place] # (Auto) 0.6 10^3/uL (0.2-0.9) 05/30/22 14:46 Eos # (Auto) 0.3 10^3/uL (0.0-0.8) 05/30/22 14:46 Baso # (Auto) 0.1 10^3/uL (0.0-0.1) 05/30/22 14:46 Nucleated RBC % (auto) 0 % 05/30/22 14:46 Nucleated RBCs # 0.0 /100WBC 05/30/22 14:46 Sodium 129 mmol/L (136-145) L 05/30/22 14:46 Potassium 3.7 mmol/L (3.5-5.1) 05/30/22 14:46 Chloride 96 mmol/L (98-107) L 05/30/22 14:46 Carbon Dioxide 28 mmol/L (22-29) 05/30/22 14:46 Anion Gap 8.7 (5-19) 05/30/22 14:46 BUN 17 mg/dL (8-23) 05/30/22 14:46 Creatinine 0.6 mg/dL (0.5-0.9) 05/30/22 14:46 GFR Calculation Not Reportable 05/30/22 14:46 Glucose 202 mg/dL (65-115) H 05/30/22 14:46 Calculated Osmolality 275 mOsm/kg (285-295) L 05/30/22 14:46 Calcium 9.1 mg/dL (8.5-10.5) 05/30/22 14:46 Total Bilirubin 0.3 mg/dL (0.15-1.2) 05/30/22 14:46 AST 22 U/L (0-32) 05/30/22 14:46 ALT 14 U/L (0-33) 05/30/22 14:46 Alkaline Phosphatase 82 U/L (35-105) 05/30/22 14:46 Troponin T Baseline 26 ng/L (0-10) H 05/30/22 14:46 Troponin T 120 Minute 32.58 ng/L (0-10) H 05/30/22 16:35 Delta Troponin T 6.58 ABS# (0-10) 05/30/22 16:35 NT-Pro-B Natriuret Pep 188 pg/mL (0-450) 05/30/22 14:46 Total Protein 6.2 g/dL (6.6-8.7) L 05/30/22 14:46 Albumin 4.0 g/dL (3.5-5.2) 05/30/22 14:46 Globulin 2.2 g/dL (1.3-4.6) 05/30/22 14:46 EKG Data EKG 1: I personally reviewed and interpreted this EKG as follows: EKG interpretation date: 05/30/22 EKG interpretation time: 14:26 Prior EKG tracings: not available for review Interpretation: EKG showed rate of 73 bpm in atrial fibrillation type pattern, QRS 149, QTc of 467, left axis deviation, right bundle branch block, Q waves in V3 and V4 and negative T waves in 2 and aVF EKG 2: I personally reviewed and interpreted this EKG as follows: EKG interpretation date: 05/30/22 EKG interpretation time: 16:53 Prior EKG tracings: available for review Interpretation: EKG showed ventricular rate 65 bpm, sinus rhythm with frequent PVCs, CO interval of 184, QRS duration 153, QTc of 450, left anterior fascicular block, Q waves in V1 and V2 Discharge Plan Discharge Patient Disposition: Home Clinical Impression: Atypical chest pain Condition: Stable Prescriptions: No Action (DME) Diabetic Shoes See Rx Instructions .ROUTE .MEDSUPPLY Qty: 1 0RF Rx Instructions: As directed, with 3 pairs of inserts From Home. (DME) Custom Insoles See Rx Instructions .Route .MEDSUPPLY Qty: 1 0RF Rx Instructions: As directed (DME) Diabetic Shoes See Rx Instructions .Route .MEDSUPPLY Qty: 1 0RF Rx Instructions: As directed (DME) Diabetic Shoes with 3 sets of insoles See Rx Instructions .Route .MEDSUPPLY Qty: 1 0RF Rx Instructions: As directed by [facility] (DME) Custom arch supports See Rx Instructions .Route .MEDSUPPLY Qty: 1 0RF Rx Instructions: As directed by [facility] albuterol sulfate 90 mcg/actuation HFA aerosol inhaler 2 puff inhalation Q6H PRN (Reason: shortness of breath or wheezing) Qty: 8.5 2RF azithromycin 250 mg tablet 250 mg PO .COMPLEX 120 Days Qty: 60 0RF Rx Instructions: 250 mg PO ON Tuesday albuterol sulfate 2.5 mg /3 mL (0.083 %) solution for nebulization 2.5 mg inhalation DAILY PRN (Reason: shortness of breath or wheezing) Qty: 180 3RF (DME) Afflo Vest See Rx Instructions .Route .MEDSUPPLY Qty: 1 0RF Rx Instructions: twice daily. (DME) Diabetic shoes with 3 pairs of inserts See Rx Instructions .Route .MEDSUPPLY Qty: 1 0RF Rx Instructions: As directed [facility] [employer] [facility] (DME) INOGEN See Rx Instructions .Route .MEDSUPPLY Qty: 1 0RF Rx Instructions: Change portable oxygen source to INOGEN. (DME) Diabetic Shoes 3 sets of insoles See Rx Instructions .Route .MEDSUPPLY Qty: 1 0RF Rx Instructions: As directed by HOME aspirin 81 mg Tablet,Delayed Release (Dr/Ec) 81 mg PO DAILY@12 Hold Instructions: Resume on 08/18/19. PreserVision AREDS [id number] Capsule 1 cap PO DAILY@12 Coreg 6.25 mg tablet 3.125 mg PO BID Rx Instructions: must administer with a meal/food cetirizine 10 mg tablet 10 mg PO QAM diltiazem HCl 60 mg tablet 60 mg PO DAILY@12 prednisone 5 mg tablet 5 mg PO DAILY PRN (Reason: FLARE UPS) Mucinex Fast-Max Chest-Congest 100 mg/5 mL liquid 200 mg PO QAM levothyroxine 25 mcg tablet 25 mcg PO QAM furosemide 20 mg tablet 20 mg PO DAILY levofloxacin 500 mg tablet 500 mg PO QAM Rx Instructions: FOR 7 DAYS (RX FILLED 05/24/22) rosuvastatin 10 mg tablet 10 mg PO BEDTIME Trelegy Ellipta 100-62.5-25 mcg blister with device 1 inh inhalation QAM Rx Instructions: UNDER 340B Miralax 17 gram Powder In Packet 17 g PO EVERY OTHER DAY Stool Softener Gummies 1 tab PO DAILY Discharge Orders: Discharge ED (Routine); Ordered 05/30/22 Ordered By: Benji Tanner Referrals: Keanu Major DO [Primary Care Provider] - 1 week Patient Instructions: Chest Pain (ED) Coding Level of Care Code ED Carbon Lamp Cleaner for Mick Thompson
[2022-05-30 15:30] VITALS: BP 128/69; PULSE 69; RESP 18; O2SAT 96
[2022-05-30] MEDS: ketorolac 30 mg/mL INJ 15 MG IVP (15:35)
[2022-05-30 15:40] LABS: Troponin(5th) Baseline 26 ng/L (0-10)
[2022-05-30 15:48] LABS: Alanine Aminotransferase 14 U/L (0-33); Alkaline Phosphatase 82 U/L (35-105); Aspartate Amino Transferase 22 U/L (0-32); Blood Urea Nitrogen 17 mg/dL (8-23); Calcium 9.1 mg/dL (8.5-10.5); Carbon Dioxide 28 mmol/L (22-29); Chloride 96 mmol/L (98-107); Creatinine Clr Calc Pharmacy 41.1258; Globulin 2.2 g/dL (1.3-4.6); Glucose 202 mg/dL (65-115); NT Pro B Type Natriuretic Pept 188 pg/mL (0-450); Osmolality Calculated 275 mOsm/kg (285-295); Sodium 129 mmol/L (136-145); Total Bilirubin 0.3 mg/dL (0.15-1.2); Total Protein 6.2 g/dL (6.6-8.7)
[2022-05-30 15:50] LABS: Anion Gap 8.7 (5-19); Potassium 3.7 mmol/L (3.5-5.1)
[2022-05-30 16:00] VITALS: BP 120/63; PULSE 70; RESP 18; O2SAT 95
--- NOTE | 2022-05-30 16:33 | ECG_ITS ---
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 Measurements Intervals [place] Rate: 65 P: 95 MN: 184 QRS: -81 QRSD: 153 T: 17 QT: 438 QTc: 457 Interpretive Statements SINUS RHYTHM WITH FREQUENT SUPRAVENTRICULAR PREMATURE COMPLEXES RIGHT BUNDLE BRANCH BLOCK [120+ ms QRS DURATION, UPRIGHT V1, 40+ ms S IN I/aVL/V4/V5/V6] LEFT ANTERIOR FASCICULAR BLOCK [QRS AXIS <= -45, QR IN I, RS IN II] MINIMAL VOLTAGE CRITERIA FOR LVH, CONSIDER NORMAL VARIANT [MEETS CRITERIA IN ONE OF: R(aVL), S(V1), R(V5), R(V5/V6)+S(V1)] POSSIBLE SEPTAL MYOCARDIAL INFARCTION , PROBABLY OLD [30 ms Q WAVE IN V1/V2] Compared to ECG 05/30/2022 14:26:01 Left anterior fascicular block now present Atrial fibrillation no longer present Left-axis deviation no longer present T-wave abnormality no longer present Possible ischemia no longer present Myocardial infarct finding still present Electronically Signed On 05-31-2022 14:31:07 CDT by Chris Bell M.D. [id number]
[2022-05-30 17:00] VITALS: BP 127/75; PULSE 77; RESP 18; O2SAT 94
[2022-05-30 17:04] LABS: Troponin 5 2HR 32.58 ng/L (0-10)
[2022-05-30 17:09] LABS: Troponin 5 2HR Delta 6.58 ABS# (0-10)
== END 2022-05-30 17:33 | disposition home or self-care (01) ==
PROVIDERS: Emergency Provider Emergency Medicine; PCP Family Medicine
DX: R07.89 Other chest pain (principal); Z79.82 Long term (current) use of aspirin; Z87.891 Personal history of nicotine dependence; Z95.1 Presence of aortocoronary bypass graft; E11.9 Type 2 diabetes mellitus without complications; J44.9 Chronic obstructive pulmonary disease, unspecified; E78.5 Hyperlipidemia, unspecified
CPT/HCPCS: 36415; 71045; 80053; 83880; 84484; 85025; 93005; 96374; 99285; J1885

== ENCOUNTER 2022-06-03 15:04 | Observation (INO) | payer MEDICARE, SELFPAY ==
[2022-06-03 15:12] VITALS: BP 130/68; PULSE 75; RESP 22; O2SAT 93; BMI 16.8
--- NOTE | 2022-06-03 15:22 | ECG_ITS ---
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 Measurements Intervals [place] Rate: 68 P: 51 MN: 172 QRS: -84 QRSD: 153 T: -33 QT: 431 QTc: 461 Interpretive Statements SINUS RHYTHM WITH FREQUENT SUPRAVENTRICULAR PREMATURE COMPLEXES RIGHT BUNDLE BRANCH BLOCK [120+ ms QRS DURATION, UPRIGHT V1, 40+ ms S IN I/aVL/V4/V5/V6] LEFT ANTERIOR FASCICULAR BLOCK [QRS AXIS <= -45, QR IN I, RS IN II] Compared to ECG 05/30/2022 16:53:06 Myocardial infarct finding no longer present Electronically Signed On 06-03-2022 16:15:47 CDT by Chris Bell M.D. [id number]
[2022-06-03 15:26] VITALS: TEMP 36.6
--- NOTE | 2022-06-03 15:29 | XR_ITS ---
WS: [id number] Exam: XR chest 1V portable [id number] Date/Time of Exam: 06/03/2022 3:51 PM Reason For Exam: chest pain Comparison 05/30/2022. The lungs are fully expanded and clear. Unremarkable cardiomediastinal silhouette. Signs of previous coronary artery stenting. Neurostimulator leads coursing along the right chest and base of the neck o n the right. The distal end is out of the [id number]. Fusion hardware noted in the lower cervical spine. Bony structures are otherwise intact. XR/XR chest 1V portable [id number] IMPRESSION: 1. No acute cardiopulmonary process.
--- NOTE | 2022-06-03 15:38 | W.ED.CHESTPA ---
HPI - Chest Pain General: Chief Complaint: Chest Pain Stated Complaint: chest pain Time Seen by Provider: 06/03/22 15:14 Source: patient Mode of arrival: ambulatory History of Present Illness: 76-year-old female presents emergency room with complaints of chest pain. She is left-sided chest pain rating to her neck back and left arm. She was here 4 days ago with similar complaint cardiac enzymes were negative and she was discharged home. She was at rest when the episode 4 days ago happened as well as the episode today she states that she did get improvement after a single nitro but has recurrence of discomfort. She has a known history of coronary artery disease had bypass in 2006 and then angiography with stent placement in 2016. She is diabetic but is lost a significant amount of weight and is no longer on any medications. She has not been a smoker in the past. She does take aspirin daily as well as Coreg and Crestor. MD complaint: chest pain Pertinent past history: coronary artery disease Onset (ago): day(s) Timing of current episode: episodic Prior episodes: Yes Onset: during rest Pain location: left chest Pain radiation: left arm, back and left shoulder Severity: moderate Quality: aching and heaviness Relieving factors: nitroglycerin Exacerbating factors: nothing Associated symptoms: Deny abdominal pain, diaphoresis, dyspnea, fever(s), leg edema, nausea, palpitations, sense of impending doom, syncope or vomiting Treatment prior to arrival: none Review of Systems Const: Denies: fever(s), chills or diaphoresis ENMT: Denies: throat pain, ear or mastoid pain, nasal discharge or nasal congestion Card: Reports: chest pain; Denies: palpitations, irregular heart rhythm, edema or syncope Resp: Denies: dyspnea GI: Denies: abdominal pain, nausea or vomiting : Denies: flank pain, difficulty voiding, dysuria, urinary frequency or urinary urgency Skin/Breast: Denies: rash or pruritus PFSH ED PFSH: Medical History Actinic keratosis Carpal tunnel syndrome of right wrist Diabetes mellitus History of anxiety History of COPD Hx of cataract Hx of hyperlipidemia Hx of hypotension Hx of osteoporosis Intervertebral cervical disc disorder with myelopathy, cervical region Joint instability Pituitary tumor PVC (premature ventricular contraction) Ulnar nerve entrapment at elbow Surgical History H/O bladder repair surgery H/O esophagogastroduodenoscopy H/O local excision of skin lesion Excision of right forearm and right hand skin lesion, 02/2009, [place]. Chandler [place] [place] H/O right knee surgery History of carpal tunnel surgery of right wrist [place]1984 History of colonoscopy with polypectomy 2020 History of laryngoscopy History of pituitary surgery History of removal of implants of both breasts Hx of appendectomy Hx of breast implants, bilateral Hx of cholecystectomy Hx of foot surgery Hx of hernia repair Hx of hysterectomy Hx of neck surgery Hx of tonsillectomy S/P CABG (coronary artery bypass graft) S/P cervical spinal fusion C5-C7 ACDFF, [facility] [place] S/P decompression of ulnar nerve at elbow right, [place] Status post Arpan fundoplication Family History Mother , Age 75 Hypertension Cancer Heart disease Father , Age 48 Myocardial infarction Denies family history of Anesthesia complication Bleeding disorder Social History Smoking and tobacco status: former smoker Quit status (tobacco): has quit using tobacco Year quit tobacco: 1984 - 3PPD x 25 Years Second hand smoke exposure: No Smoking risk assessment/counseling performed?: No Alcohol intake: never Desire information about alcohol rehabilitation?: No Counseling given: No Substance/Drug Use: never Desire information about substance/drug rehabilitation?: No Counseling given: No Adopted: No Caregiver/support person: No Lives independently: Yes Household members: spouse Marital status: Current occupational status: employed 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[facility] [place] Current occupational exposures/hazards: No Do you think of yourself as: Straight/Heterosexual Current gender identity: Female Female Reproductive History: Spontaneous abortions: No Physical Exam Const: COMMON NORMALS: no acute distress GENERAL APPEARANCE: cooperative and comfortable ORIENTATION/CONSCIOUSNESS: Yes awake, Yes oriented to person, Yes oriented to place and Yes oriented to time HENMT: COMMON NORMALS: normocephalic, atraumatic and hearing grossly normal bilaterally HEAD & SCALP: normocephalic and atraumatic Resp: COMMON NORMALS: normal respiratory effort, No retractions, No use of accessory muscles and clear to auscultation bilaterally AUSCULTATION: clear to auscultation bilaterally Cardio: COMMON NORMALS: regular rate, regular rhythm and No murmurs present (Cardio) RATE: regular rate RHYTHM: regular rhythm GI: COMMON NORMALS: Soft to palpation and No hepatosplenomegaly present AUSCULTATION: Yes normoactive bowel sounds PALPATION: Yes Soft to palpation, No Tenderness to palpation present (GI), No Guarding due to palpation present (GI) and Yes No hepatosplenomegaly present Extremity: COMMON NORMALS: normal to inspection, capillary refill normal, no clubbing, cyanosis or edema, no calf tenderness and no pedal edema Neuro: SENSORIUM/ORIENTATION: Yes oriented to person, Yes oriented to place and Yes oriented to time Skin: COMMON NORMALS: no rashes or lesions noted GENERAL SKIN EXAM: no rashes or lesions noted Course Vital Signs: Vital signs: Vital Signs Temperature 97.9 F 06/03/22 15:26 Pulse Rate 75 06/03/22 15:12 Respiratory Rate 18 06/03/22 15:54 Blood Pressure 126/66 06/03/22 15:54 Pulse Oximetry 92 06/03/22 16:14 Oxygen Delivery Me thod Room Air 06/03/22 16:14 MDM - Chest Pain Medical Decision Making Labs and imaging reviewed EKGs reviewed EKG unchanged from previous troponin baseline is bumped previously was 21 now it is 81. She 7 progressively more unstable angina relieved by nitro. Known previous coronary disease with bypass in 2006 in the angiogram with stents in 2015. Stress test July 2020 did not show any reversible ischemia. She has no evidence of PE pneumonia or pneumothorax. No evidence of congestive heart failure. Patient will require hospitalization to finish the serial enzymes and then further evaluation for cardiac status. Discussed with hospitalist also discussed with cardiology. She has been placed on topical nitro which has relieved all of her chest discomfort at this point Medical Records I reviewed the patient's medical records. Lab Data I reviewed the patient's lab results. 06/03/22 15:42 06/03/22 15:42 Radiology Impressions Chest X-Ray 06/03/22 15:29 IMPRESSION: 1. No acute cardiopulmonary process. Laboratory Results WBC 5.6 10^3/uL (4.0-10.0) 06/03/22 15:42 RBC 4.45 10^6/uL (4.1-5.3) 06/03/22 15:42 Hgb 12.4 g/dL (11.5-15.3) 06/03/22 15:42 Hct 39.5 % (37.0-47.0) 06/03/22 15:42 MCV 88.8 fl (81-99) 06/03/22 15:42 MCH 27.9 pg (28.0-34.0) L 06/03/22 15:42 MCHC 31.4 g/dL (30.0-36.0) 06/03/22 15:42 RDW 14.7 % (12.1-15.1) 06/03/22 15:42 Plt Count 128 10^3/cmm (130-400) L 06/03/22 15:42 MPV 11.7 fL (7.4-10.4) H 06/03/22 15:42 Neut % (Auto) 61.4 % 06/03/22 15:42 Lymph % (Auto) 21.4 % 06/03/22 15:42 Bowie % (Auto) 9.3 % 06/03/22 15:42 Eos % (Auto) 6.8 % 06/03/22 15:42 Baso % (Auto) 0.9 % 06/03/22 15:42 Neut # (Auto) 3.45 10^3/uL (1.8-7.7) 06/03/22 15:42 Lymph # (Auto) 1.2 10^3/uL (0.8-4.8) 06/03/22 15:42 Bowie # (Auto) 0.5 10^3/uL (0.2-0.9) 06/03/22 15:42 Eos # (Auto) 0.4 10^3/uL (0.0-0.8) 06/03/22 15:42 Baso # (Auto) 0.1 10^3/uL (0.0-0.1) 06/03/22 15:42 Nucleated RBC % (auto) 0 % 06/03/22 15:42 Nucleated RBCs # 0.0 /100WBC 06/03/22 15:42 Sodium 135 mmol/L (136-145) L 06/03/22 15:42 Potassium 3.9 mmol/L (3.5-5.1) 06/03/22 15:42 Chloride 101 mmol/L (98-107) 06/03/22 15:42 Carbon Dioxide 26 mmol/L (22-29) 06/03/22 15:42 Anion Gap 11.9 (5-19) 06/03/22 15:42 BUN 14 mg/dL (8-23) 06/03/22 15:42 Creatinine 0.5 mg/dL (0.5-0.9) 06/03/22 15:42 GFR Calculation Not Reportable 06/03/22 15:42 Glucose 140 mg/dL (65-115) H 06/03/22 15:42 Calculated Osmolality 283 mOsm/kg (285-295) L 06/03/22 15:42 Calcium 9.2 mg/dL (8.5-10.5) 06/03/22 15:42 Total Bilirubin 0.3 mg/dL (0.15-1.2) 06/03/22 15:42 AST 22 U/L (0-32) 06/03/22 15:42 ALT 14 U/L (0-33) 06/03/22 15:42 Alkaline Phosphatase 66 U/L (35-105) 06/03/22 15:42 Troponin T Baseline 81 ng/L (0-10) H 06/03/22 15:42 Total Protein 5.6 g/dL (6.6-8.7) L 06/03/22 15:42 Albumin 3.3 g/dL (3.5-5.2) L 06/03/22 15:42 Globulin 2.3 g/dL (1.3-4.6) 06/03/22 15:42 Discharge Plan Discharge Patient Disposition: Placed in Observation Clinical Impression: Unstable angina, History of coronary artery disease Condition: Stable Prescriptions: No Action (DME) Diabetic Shoes See Rx Instructions .ROUTE .MEDSUPPLY Qty: 1 0RF Rx Instructions: As directed, with 3 pairs of inserts From Home. (DME) Custom Insoles See Rx Instructions .Route .MEDSUPPLY Qty: 1 0RF Rx Instructions: As directed (DME) Diabetic Shoes See Rx Instructions .Route .MEDSUPPLY Qty: 1 0RF Rx Instructions: As directed (DME) Diabetic Shoes with 3 sets of insoles See Rx Instructions .Route .MEDSUPPLY Qty: 1 0RF Rx Instructions: As directed by JOHN PAUL&O ([facility] [place]) Custom arch supports See Rx Instructions .Route .MEDSUPPLY Qty: 1 0RF Rx Instructions: As directed by JOHN PAUL&O albuterol sulfate 90 mcg/actuation HFA aerosol inhaler 2 puff inhalation Q6H PRN (Reason: shortness of breath or wheezing) Qty: 8.5 2RF albuterol sulfate 2.5 mg /3 mL (0.083 %) solution for nebulization 2.5 mg inhalation DAILY PRN (Reason: shortness of breath or wheezing) Qty: 180 3RF (DME) Afflo Vest See Rx Instructions .Route .MEDSUPPLY Qty: 1 0RF Rx Instructions: twice daily. ([facility] [place]) Diabetic shoes with 3 pairs of inserts See Rx Instructions .Route .MEDSUPPLY Qty: 1 0RF Rx Instructions: As directed J P & O ([facility] [place]) INOGEN See Rx Instructions .Route .MEDSUPPLY Qty: 1 0RF Rx Instructions: Change portable oxygen source to INOGEN. ([facility] [place]) Diabetic Shoes 3 sets of insoles See Rx Instructions .Route .MEDSUPPLY Qty: 1 0RF Rx Instructions: As directed by HOME aspirin 81 mg Tablet,Delayed Release (Dr/Ec) 81 mg PO DAILY@12 Hold Instructions: Resume on 08/18/19. PreserVision AREDS [id number] Capsule 1 cap PO DAILY@12 carvedilol [Coreg] 6.25 mg tablet 3.125 mg PO BID Rx Instructions: must administer with a meal/food cetirizine 10 mg tablet 10 mg PO QAM diltiazem HCl 60 mg tablet 60 mg PO DAILY@12 prednisone 5 mg tablet 5 mg PO DAILY PRN (Reason: FLARE UPS) Mucinex Fast-Max Chest-Congest 100 mg/5 mL liquid 200 mg PO QAM levothyroxine 25 mcg tablet 25 mcg PO QAM furosemide 20 mg tablet 20 mg PO DAILY levofloxacin 500 mg tablet 500 mg PO QAM Rx Instructions: FOR 7 DAYS (RX FILLED 05/24/22) rosuvastatin 10 mg tablet 10 mg PO BEDTIME Trelegy Ellipta 100-62.5-25 mcg blister with device 1 inh inhalation QAM Rx Instructions: UNDER 340B Miralax 17 gram Powder In Packet 17 g PO EVERY OTHER DAY Stool Softener Gummies 1 tab PO DAILY Referrals: Keanu Major DO [Primary Care Provider] - Coding Level of Care Code ED Film Historian for [facility]
[2022-06-03] MEDS: nitroglycerin 1 gm/inch oint Pkt 0.5 INCH TOPICAL (15:51)
[2022-06-03] MEDS: aspirin 81 mg Chew Tablet 324 MG PO (15:51)
[2022-06-03 15:54] VITALS: BP 126/66; RESP 18; O2SAT 92
[2022-06-03 15:58] LABS: Basophils # 0.1 10^3/uL (0.0-0.1); Basophils % 0.9 %; Eosinophils # 0.4 10^3/uL (0.0-0.8); Eosinophils % 6.8 %; Hematocrit 39.5 % (37.0-47.0); Hemoglobin 12.4 g/dL (11.5-15.3); Lymphocytes # 1.2 10^3/uL (0.8-4.8); Lymphocytes % 21.4 %; Mean Corpuscular HGB Conc 31.4 g/dL (30.0-36.0); Mean Corpuscular Hemoglobin 27.9 pg (28.0-34.0); Mean Corpuscular Volume 88.8 fl (81-99); Mean Platelet Volume 11.7 fL (7.4-10.4); Monocytes # 0.5 10^3/uL (0.2-0.9); Monocytes % 9.3 %; Neutrophils # 3.45 10^3/uL (1.8-7.7); Neutrophils % 61.4 %; Nucleated Red Blood Cells % 0 %; Platelet Count 128 10^3/cmm (130-400); Red Blood Count 4.45 10^6/uL (4.1-5.3); Red Cell Distribution Width 14.7 % (12.1-15.1); White Blood Count 5.6 10^3/uL (4.0-10.0)
[2022-06-03 16:14] VITALS: O2SAT 92
[2022-06-03 16:19] LABS: Troponin(5th) Baseline 81 ng/L (0-10)
[2022-06-03 16:21] LABS: Alanine Aminotransferase 14 U/L (0-33); Albumin Level 3.3 g/dL (3.5-5.2); Alkaline Phosphatase 66 U/L (35-105); Anion Gap 11.9 (5-19); Aspartate Amino Transferase 22 U/L (0-32); Blood Urea Nitrogen 14 mg/dL (8-23); Calcium 9.2 mg/dL (8.5-10.5); Carbon Dioxide 26 mmol/L (22-29); Chloride 101 mmol/L (98-107); Creatinine Clr Calc Pharmacy 40.6971; Globulin 2.3 g/dL (1.3-4.6); Glucose 140 mg/dL (65-115); Osmolality Calculated 283 mOsm/kg (285-295); Potassium 3.9 mmol/L (3.5-5.1); Sodium 135 mmol/L (136-145); Total Bilirubin 0.3 mg/dL (0.15-1.2); Total Protein 5.6 g/dL (6.6-8.7)
--- NOTE | 2022-06-03 16:49 | P.HP_ITS ---
Providers/Chief Complaint Primary Care Provider: Keanu Major DO Chief Complaint: chest pain History of Present Illness Makenzie Ambrocio is a 76 year old female with history of CABG, coronary disease with recent stent placement, COPD, chronic hypoxia uses 3 L of oxygen at baseline, presenting with chief complaint of chest pain. Patient is stating that after confucianist on Tuesday she had an episode when she was well in the ER she was discharged home, however that night she had another episode, Tuesday night she woke up with chest pain, today she started having chest pain again around 2 PM that prompted her visit to the ER, nitroglycerin helped with her chest pain. She described her chest pain as severe achy chest pain radiating towards her jaw and left arm. It associated with mild shortness of breath without vomiting. She is using azithromycin chronically every other day 250 mg for her chronic obstructive pulmonary disease. She is seeing Dr. Alvarenga. History of CABG 2005 and angioplasty 2015 She has been started on ACS protocol currently chest pain-free she does have a nitroglycerin patch on her chest EKG showing incomplete right bundle branch block, ST changes related to bundle branch block Review of Systems Eyes: Denies: change in vision ENMT: Denies: throat pain Card: Reports: chest pain Resp: Denies: dyspnea GI: Denies: abdominal pain : Denies: urinary urgency Musc: Denies: neck pain Skin/Breast: Denies: rash Neuro: Denies: headache(s) Psych: Reports: anxiety Endo: Denies: polyuria Gonzalez/Lymph: Denies: easy bruising Medications/Allergies Home Medications Medication Instructions Recorded Confirmed Last Taken Type aspirin 81 mg tablet,delayed 81 mg PO DAILY@02/12/19 06/03/22 06/03/22 History release Custom Insoles #1 ea 02/21/20 06/03/22 09/09/21 Rx Diabetic Shoes #1 ea 02/21/20 06/03/22 09/09/21 Rx Diabetic Shoes #1 ea 06/03/20 06/03/22 09/09/21 Rx vitamins A,C,[id number] 4,296 1 cap PO DAILY@08/01/20 06/03/22 06/03/22 History mcg-226 mg-90 mg capsule (PreserVision AREDS) Diabetic shoes with 3 pairs of #1 ea 09/22/20 06/03/22 09/09/21 Rx inserts Custom arch supports #1 ea 08/03/21 06/03/22 09/09/21 Rx Diabetic Shoes with 3 sets of #1 ea 08/03/21 06/03/22 09/09/21 Rx insoles albuterol sulfate 90 mcg/actuation 2 puff inhalation Q6H PRN 08/25/21 06/03/22 09/09/21 Rx aerosol inhaler shortness of breath or wheezing #8.5 grams INOGEN #1 ea 09/17/21 06/03/22 Unknown Rx Diabetic Shoes 3 sets of insoles #1 ea 09/29/21 06/03/22 Unknown Rx Afflo Vest #1 ea 10/09/21 06/03/22 Unknown Rx albuterol sulfate 2.5 mg/3 mL 2.5 mg (3 mL) inhalation DAILY PRN 10/09/21 06/03/22 Unknown Rx (0.083 %) solution for nebulization shortness of breath or wheezing #180 mL Stool Softener Gummies 1 tab PO DAILY 05/30/22 06/03/22 06/03/22 History carvedilol 6.25 mg tablet (Coreg) 6.25 mg PO BID 05/30/22 06/03/22 06/03/22 History cetirizine 10 mg tablet 10 mg PO QAM 05/30/22 06/03/22 06/03/22 History diltiazem HCl 60 mg tablet 60 mg PO DAILY@12 05/30/22 06/03/22 06/03/22 History fluticasone fur. 100 mcg-umeclid 1 inh inhalation QAM 05/30/22 06/03/22 06/03/22 History 62.5 mcg-vilant 25 mcg inhalat.powder (Trelegy Ellipta) furosemide 20 mg tablet 20 mg PO DAILY PRN Edema 05/30/22 06/03/22 05/29/22 History levothyroxine 25 mcg tablet 25 mcg PO QAM 05/30/22 06/03/22 06/03/22 History polyethylene glycol 3350 17 gram 17 g PO EVERY OTHER DAY 05/30/22 06/03/22 06/03/22 History oral powder packet (Miralax) rosuvastatin 10 mg tablet 10 mg PO BEDTIME 05/30/22 06/03/22 06/02/22 History Allergies Allergy/AdvReac Type Severity Reaction Status Date / Time butorphanol [From Stadol] Allergy Severe ALGY-Swell Verified 06/03/22 16:46 Lip/Tongue/Throat losartan [From Cozaar] Allergy Severe ALGY-Rash Verified 06/03/22 16:46 metoprolol Allergy Rash, Verified 06/03/22 16:46 Itching atorvastatin [From Lipitor] AdvReac Severe ADR-Muscle Verified 06/03/22 16:46 Pain PFSH Acute PFSH: Medical History Actinic keratosis Carpal tunnel syndrome of right wrist Diabetes mellitus History of anxiety History of COPD Hx of cataract Hx of hyperlipidemia Hx of hypotension Hx of osteoporosis Intervertebral cervical disc disorder with myelopathy, cervical region Joint instability Pituitary tumor PVC (premature ventricular contraction) Ulnar nerve entrapment at elbow Surgical History H/O bladder repair surgery H/O esophagogastroduodenoscopy H/O local excision of skin lesion Excision of right forearm and right hand skin lesion, 02/2009, [place] [place] H/O right knee surgery History of carpal tunnel surgery of right wrist [place]1984 History of colonoscopy with polypectomy 2020 History of laryngoscopy History of pituitary surgery History of removal of implants of both breasts Hx of appendectomy Hx of breast implants, bilateral Hx of cholecystectomy Hx of foot surgery Hx of hernia repair Hx of hysterectomy Hx of neck surgery Hx of tonsillectomy S/P CABG (coronary artery bypass graft) S/P cervical spinal fusion C5-C7 [place] [facility] [place] S/P decompression of ulnar nerve at elbow right, [place], 1984 Status post Arpan fundoplication Family History Mother , Age 75 Hypertension Cancer Heart disease Father , Age 48 Myocardial infarction Denies family history of Anesthesia complication Bleeding disorder Social History Smoking and tobacco status: former smoker Quit status (tobacco): has quit using tobacco Year quit tobacco: 1984 - 3PPD x 25 Years Second hand smoke exposure: No Smoking risk assessment/counseling performed?: No Alcohol intake: never Desire information about alcohol rehabilitation?: No Counseling given: No Substance/Drug Use: never Desire information about substance/drug rehabilitation?: No Counseling given: No Adopted: No Caregiver/support person: No Lives independently: Yes Household members: spouse Marital status: Current occupational status: employed 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[employer] [place] Current occupational exposures/hazards: No Do you think of yourself as: Straight/Heterosexual Current gender identity: Female Female Reproductive History: Spontaneous abortions: No Vitals/I&O/Wt Last Vital Signs Temp 97.9 F 06/03/22 15:26 Pulse 75 06/03/22 15:12 Resp 18 06/03/22 15:54 BP 126/66 06/03/22 15:54 Pulse Ox 92 06/03/22 16:14 O2 Del Method Room Air 06/03/22 16:14 Weight last 48 hrs Weight 43.091 kg Physical Exam Narrative: S1, S2 Bradycardia around 60s Hemodynamically stable No acute chest pain Does have nitroglycerin paste on her chest Abdomen soft Euvolemic Currently on 3 L No active crackles nonfocal neuro exam Appears stated age Pleasant Data 06/03/22 15:42 06/03/22 15:42 A&P Assessment and plan (1) Unstable angina: (2) COPD (chronic obstructive pulmonary disease): (3) Seasonal allergies: (4) History of coronary artery disease: (5) Bronchiectasis: Qualifiers: Bronchiectasis type: with acute lower respiratory infection Qualified Code(s): J47.0 - Bronchiectasis with acute lower respiratory infection (6) Diabetes mellitus: Qualifiers: Diabetes mellitus type: type 2 Diabetes mellitus half-way insulin use: without 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 use Diabetes mellitus complication status: without complication Qualified Code(s): E11.9 - Type 2 diabetes mellitus without complications (7) S/P CABG (coronary artery bypass graft): (8) ACS (acute coronary syndrome): Plan Unstable Angina Start ACS protocol No active chest pain Npo after MN Cardiology consulted Significant hx of CABG AND Stent placement Requested echo Ekg w/o St elevation however showing ST changes related to bundle branch block Currently patient has Nitropaste on her chest In case of recurrent chest pain cardiology will be notified or she will put on nitroglycerin drip Check D-dimer Self interpretation of EKG done by myself Chronic hypoxia COPD, uses azithromycin every other day 250 mg Uses 3 L of oxygen at baseline Full code N.p.o. after midnight Currently on cardiac diet Continue levothyroxine Currently on therapeutic Lovenox Goals of care discussed with the patient, is at the bedside Attestations Medical Necessity Statement*: Patient will need an angiogram anticipating more than 2 midnight Diagnoses Unstable angina I20.0 COPD (chronic obstructive pulmonary disease) J44.9 Seasonal allergies J30.2 History of coronary artery disease Z86.79 Bronchiectasis J47.0 Bronchiectasis type: with acute lower respiratory infection Diabetes mellitus E11.9 Diabetes mellitus type: type 2 Diabetes mellitus 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 insulin use: without 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 use Diabetes mellitus complication status: without complication S/P CABG (coronary artery bypass graft) Z95.1 ACS (acute coronary syndrome) I24.9
--- NOTE | 2022-06-03 17:09 | P.CONIM_ITS ---
Providers/Reason For Consult Consulting Physician/Specialty*: JANETT Mcleod MD/cardiology Reason for Consult*: Patient with chest pain, elevated troponin T, previous history of oronary artery disease, coronary bypass surgery low probability for coronary ischemia, based on the above findings Requesting Physician: Dr. Dos Santos Primary Care Provider: Keanu Major DO History of Present Illness History of Present Illness Makenzie Ambrocio is a 76 year old female, is being admitted to the hospital through the emergency room, where she presented with complaints of a prolonged episode of chest pain. She was found to have a baseline elevated troponin T level in the 80s. Cardiology consult is requested for further cardiac evaluation and recommendations. She apparently has been in her baseline state of health up until last Tuesday when she started having chest pain after returning from the [place]. She was seen in the emergency room at that time. Initial cardiac work-up was negative. She was discharged home from the emergency room. Apparently she started having the chest pain again on Tuesday evening. This time the pain might have lasted for 10 to 15 minutes and then gradually subsided after taking 1 sublingual nitro. Tuesday evening also she had had an episode of chest pain which responded to 1 sublingual nitro. She was feeling okay up until this afternoon, when she started having chest pain again. The pain gradually started getting worse. On a scale of 1-10, it was graded as 8/10 intensity. She had some associated shortness of breath and nausea. No palpitations, dizziness or syncopal episodes. The patient was radiating to the neck, left shoulder and also the left arm. The whole episode might have lasted for an hour to an hour and a half. She was placed on Nitropaste and oxygen in the emergency room. Currently she is mainly complaining of a tight feeling in the chest. No other specific complaints. This patient is known to have coronary disease and had two-vessel coronary bypass surgery in 2006. In 2016, she presented with acute inferior wall myocardial infarction. Subsequent cardiac catheterization revealed occluded right coronary artery. Patent GARCIA to the LAD and the venous graft to circumflex artery. Review of Systems Narrative: CONSTITUTIONAL: No fever or chills. EYES: No blurring of vision or other visual disturbances lately. ENT: No hoarseness of voice, auditory disturbances or sore throat. CARDIOVASCULAR: As mentioned above. RESPIRATORY: She has a baseline shortness of breath with activities. GASTROINTESTINAL: No hematemesis or melena. GENITOURINARY: No dysuria or hematuria. INTEGUMENTARY: No skin rashes or history of skin cancer. NEURO: No transient ischemic attacks or amaurosis. PSYCHIATRIC: No history of psychosis or major depression. HEMATOLOGIC: No bleeding disorders or significant anemia. ENDOCRINE: No history of polyuria or polydipsia. MUSCULOSKELETAL: No recent joint pain or swelling. ALLERGY/IMMUNOLOGY: As mentioned above. Medications/Allergies Home Medications Medication Instructions Recorded Confirmed Last Taken Type aspirin 81 mg tablet,delayed 81 mg PO DAILY@02/12/19 06/03/22 06/03/22 History release Custom Insoles #1 02/21/20 06/03/22 09/09/21 Rx Diabetic Shoes #1 02/21/20 06/03/22 09/09/21 Rx Diabetic Shoes #1 06/03/20 06/03/22 09/09/21 Rx vitamins A,C,N-hbgq-qpadxg 4,296 1 cap PO DAILY@08/01/20 06/03/22 06/03/22 History mcg-226 mg-90 mg capsule (PreserVision AREDS) Diabetic shoes with 3 pairs of #1 ea 09/22/20 06/03/22 09/09/21 Rx inserts Custom arch supports #1 08/03/21 06/03/22 09/09/21 Rx Diabetic Shoes with 3 sets of #1 08/03/21 06/03/22 09/09/21 Rx insoles albuterol sulfate 90 mcg/actuation 2 puff inhalation Q6H PRN 08/25/21 06/03/22 09/09/21 Rx aerosol inhaler shortness of breath or wheezing #8.5 grams INOGEN #1 ea 09/17/21 06/03/22 Unknown Rx Diabetic Shoes 3 sets of insoles #1 09/29/21 06/03/22 Unknown Rx Afflo Vest #1 ea 10/09/21 06/03/22 Unknown Rx albuterol sulfate 2.5 mg/3 mL 2.5 mg (3 mL) inhalation DAILY PRN 10/09/21 06/03/22 Unknown Rx (0.083 %) solution for nebulization shortness of breath or wheezing #180 mL Stool Softener Gummies 1 tab PO DAILY 05/30/22 06/03/22 06/03/22 History carvedilol 6.25 mg tablet (Coreg) 6.25 mg PO BID 05/30/22 06/03/22 06/03/22 History cetirizine 10 mg tablet 10 mg PO QAM 05/30/22 06/03/22 06/03/22 History diltiazem HCl 60 mg tablet 60 mg PO DAILY@12 05/30/22 06/03/22 06/03/22 History fluticasone fur. 100 mcg-umeclid 1 inh inhalation QAM 05/30/22 06/03/22 06/03/22 History 62.5 mcg-vilant 25 mcg inhalat.powder (Trelegy Ellipta) furosemide 20 mg tablet 20 mg PO DAILY PRN Edema 05/30/22 06/03/22 05/29/22 History levothyroxine 25 mcg tablet 25 mcg PO QAM 05/30/22 06/03/22 06/03/22 History polyethylene glycol 3350 17 gram 17 g PO EVERY OTHER DAY 05/30/22 06/03/22 06/03/22 History oral powder packet (Miralax) rosuvastatin 10 mg tablet 10 mg PO BEDTIME 05/30/22 06/03/22 06/02/22 History Allergies Allergy/AdvReac Type Severity Reaction Status Date / Time butorphanol [From Stadol] Allergy Severe ALGY-Swell Verified 06/03/22 16:46 Lip/Tongue/Throat losartan [From Cozaar] Allergy Severe ALGY-Rash Verified 06/03/22 16:46 metoprolol Allergy Rash, Verified 06/03/22 16:46 Itching atorvastatin [From Lipitor] AdvReac Severe ADR-Muscle Verified 06/03/22 16:46 Pain PFSH Acute PFSH: Medical History Actinic keratosis Carpal tunnel syndrome of right wrist Diabetes mellitus History of anxiety History of COPD Hx of cataract Hx of hyperlipidemia Hx of hypotension Hx of osteoporosis Intervertebral cervical disc disorder with myelopathy, cervical region Joint instability Pituitary tumor PVC (premature ventricular contraction) Ulnar nerve entrapment at elbow Surgical History H/O bladder repair surgery H/O esophagogastroduodenoscopy H/O local excision of skin lesion Excision of right forearm and right hand skin lesion, 02/2009, Dr. Chandler ([facility] [place]) H/O right knee surgery History of carpal tunnel surgery of right wrist [place] History of colonoscopy with polypectomy 2020 History of laryngoscopy History of pituitary surgery History of removal of implants of both breasts Hx of appendectomy Hx of breast implants, bilateral Hx of cholecystectomy Hx of foot surgery Hx of hernia repair Hx of hysterectomy Hx of neck surgery Hx of tonsillectomy S/P CABG (coronary artery bypass graft) S/P cervical spinal fusion C5-C7 ACDFF, [facility] [place], 2005 S/P decompression of ulnar nerve at elbow right, [place] Status post Arpan fundoplication Family History Mother , Age 75 Hypertension Cancer Heart disease Father , Age 48 Myocardial infarction Denies family history of Anesthesia complication Bleeding disorder Social History Smoking and tobacco status: former smoker Quit status (tobacco): has quit using tobacco Year quit tobacco: 1984 - 3PPD x 25 Years Second hand smoke exposure: No Smoking risk assessment/counseling performed?: No Alcohol intake: never Desire information about alcohol rehabilitation?: No Counseling given: No Substance/Drug Use: never Desire information about substance/drug rehabilitation?: No Counseling given: No Adopted: No Caregiver/support person: No Lives independently: Yes Household members: spouse Marital status: Current occupational status: employed 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 Not in any acute distress. HEENT: No significant pallor, icterus or lymphadenopathy.Oral cavity: There are no mucous membrane lesions. NECK: Trachea appears to be central. No masses noted. No JVD or thyromegaly appreciated. RESPIRATORY: Chest is symmetrical. No intercostals muscle retraction or any accessory muscle activation. There is no chest wall tenderness. Breath sounds are heard bilaterally. Bronchovesicular sounds bilaterally with scattered coarse crackles. BREASTS: Deferred. HEART: The heart sounds are normal. No S3 or S4. No significant murmurs. No pericardial rub ABDOMEN: No vessel pulsations or distention. No tenderness. No organomegaly appreciated. Bowel sounds are normally heard. : Deferred. RECTAL: Deferred. LYMPHATIC: No lymphadenopathy noted in the neck. EXTREMITIES: No edema or cyanosis. No clubbing. Peripheral pulses are palpable but weak bilaterally MUSCULOSKELETAL: No acute joint deformities or swelling SKIN: There are no significant rashes or ecchymosis NEUROPSYCHIATRIC: The patient is alert and oriented x3. Appears to be in a good mood. No tremors or rigidity noted. Data 06/03/22 15:42 06/03/22 15:42 Micro: Laboratory Last Values WBC 5.6 10^3/uL (4.0-10.0) 06/03/22 15:42 RBC 4.45 10^6/uL (4.1-5.3) 06/03/22 15:42 Hgb 12.4 g/dL (11.5-15.3) 06/03/22 15:42 Hct 39.5 % (37.0-47.0) 06/03/22 15:42 MCV 88.8 fl (81-99) 06/03/22 15:42 MCH 27.9 pg (28.0-34.0) L 06/03/22 15:42 MCHC 31.4 g/dL (30.0-36.0) 06/03/22 15:42 RDW 14.7 % (12.1-15.1) 06/03/22 15:42 Plt Count 128 10^3/cmm (130-400) L 06/03/22 15:42 MPV 11.7 fL (7.4-10.4) H 06/03/22 15:42 Neut % (Auto) 61.4 % 06/03/22 15:42 Lymph % (Auto) 21.4 % 06/03/22 15:42 [place] % (Auto) 9.3 % 06/03/22 15:42 Eos % (Auto) 6.8 % 06/03/22 15:42 Baso % (Auto) 0.9 % 06/03/22 15:42 Neut # (Auto) 3.45 10^3/uL (1.8-7.7) 06/03/22 15:42 Lymph # (Auto) 1.2 10^3/uL (0.8-4.8) 06/03/22 15:42 [place] # (Auto) 0.5 10^3/uL (0.2-0.9) 06/03/22 15:42 Eos # (Auto) 0.4 10^3/uL (0.0-0.8) 06/03/22 15:42 Baso # (Auto) 0.1 10^3/uL (0.0-0.1) 06/03/22 15:42 Nucleated RBC % (auto) 0 % 06/03/22 15:42 Nucleated RBCs # 0.0 /100WBC 06/03/22 15:42 D-Dimer 0.42 ug/mIFEU (0-0.59) 06/03/22 15:42 Sodium 135 mmol/L (136-145) L 06/03/22 15:42 Potassium 3.9 mmol/L (3.5-5.1) 06/03/22 15:42 Chloride 101 mmol/L (98-107) 06/03/22 15:42 Carbon Dioxide 26 mmol/L (22-29) 06/03/22 15:42 Anion Gap 11.9 (5-19) 06/03/22 15:42 BUN 14 mg/dL (8-23) 06/03/22 15:42 Creatinine 0.5 mg/dL (0.5-0.9) 06/03/22 15:42 GFR Calculation Not Reportable 06/03/22 15:42 Glucose 140 mg/dL (65-115) H 06/03/22 15:42 Calculated Osmolality 283 mOsm/kg (285-295) L 06/03/22 15:42 Calcium 9.2 mg/dL (8.5-10.5) 06/03/22 15:42 Total Bilirubin 0.3 mg/dL (0.15-1.2) 06/03/22 15:42 AST 22 U/L (0-32) 06/03/22 15:42 ALT 14 U/L (0-33) 06/03/22 15:42 Alkaline Phosphatase 66 U/L (35-105) 06/03/22 15:42 Troponin T Baseline 81 ng/L (0-10) H 06/03/22 15:42 Troponin T 120 Minute 95.44 ng/L (0-10) H 06/03/22 17:42 Delta Troponin T 14.44 ABS# (0-10) H* 06/03/22 17:42 Total Protein 5.6 g/dL (6.6-8.7) L 06/03/22 15:42 Albumin 3.3 g/dL (3.5-5.2) L 06/03/22 15:42 Globulin 2.3 g/dL (1.3-4.6) 06/03/22 15:42 Cardiac catheterization on 06/04/2015: My impression: LMCA: Normal. LAD: Diffuse irregularity and Single stenosis.There is a 30-40% ostial LAD lesion. LCx: Diffuse irregularity and Single stenosis.Small nondominant vessel with didn't diffuse disease. There is a 50% stenosis in the ostial first obtuse marginal branch RCA: Acute occlusion.This is a large dominant vessel with significant calcification that is closed in the midportion, however the actual lesion is probably more distal closer to the bifurcation. ? ? Lesion on Mid RCA: Distal subsection.100% stenosis reduced to 0%. Pre ? procedure PENG 0 flow was noted. Post Procedure PENG III flow was ? present. The guidewire cross was successful.Poor runoff was present.The ? lesion was diagnosed as a moderate risk lesion.The lesion was diffuse, ? eccentric and heavily calcified.The lesion showed evidence of thrombus ? presence, with irregular contour, moderate angulation, sequential ? arrangment, moderate tortuosity and unfavorable total occlusion.Lesion ? plaque is ruptured.Culprit lesion. ?. ? Cardiac Grafts ? ?-? There is a Vein graft that originates at the Aorta Left and attaches to ? ? the 1st Ob Lindy (This graft is patent). ? ?-? There is a GARCIA graft that originates at the GARCIA and attaches to the ? ? Mid LAD (This graft is chronically occluded at the origin because of ? ? the competitive flow from the mary's igloo LAD). A&P Assessment and plan (1) Atherosclerotic heart disease of mary[place] ig[place] coronary artery with unstable angina pectoris: Patient is a clinical features consistent with an acute coronary syndrome compli cated with non-ST relation myocardial infarction. Hemodynamically she seems to be stable. She may treat with the subcu Lovenox, Plavix, aspirin, low-dose of beta-ella, statin and other symptomatic measures. An echocardiogram would be helpful to evaluate the LV function and rule out any other pathology. (2) Controlled diabetes mellitus: Aggressive management of the diabetes would be appropriate. Qualifiers: Diabetes mellitus type: type 2 Diabetes mellitus usp insulin use: without usp use Diabetes mellitus complication status: without complication Qualified Code(s): E11.9 - Type 2 diabetes mellitus without complications (3) Bronchiectasis: Treatment as per the primary. Qualifiers: Bronchiectasis type: with acute lower respiratory infection Qualified Code(s): J47.0 - Bronchiectasis with acute lower respiratory infection (4) Ventricular arrhythmia: Patient has frequent PVCs on the monitor. We will be closely monitored on telemetry. (5) COPD (chronic obstructive pulmonary disease): Optimizing the bronchodilators would be appropriate. (6) Peripheral arterial disease: Patient is currently asymptomatic. No evidence of any acute limb ischemia. (7) S/P CABG (coronary artery bypass graft): Patient had two-vessel coronary bypass surgery with a GARCIA to the LAD and venous graft to the obtuse marginal artery Plan Echocardiogram to evaluate LV function and rule out any other pathology. Repeat cardiac radiation to reevaluate the coronary arteries as well as the grafts, to decide on further management. Based on the results of the above tests and the patient's clinical progress, further recommendations will be made. Thank you for the opportunity to evaluate this patient and make these recom mendations Consult Attestations Medical Necessity Statement: Patient requires continued hospital stay for close monitoring and further management Coding Level of Care Code 77700 Diagnoses Atherosclerotic heart disease of mary[place] coronary artery with unstable angina pectoris I25.110 Controlled diabetes mellitus E11.9 Diabetes mellitus type: type 2 Diabetes mellitus ocean fishing guide insulin use: without ocean fishing guide use Diabetes mellitus complication status: without complication Bronchiectasis J47.0 Bronchiectasis type: with acute lower respiratory infection Ventricular arrhythmia I49.9 COPD (chronic obstructive pulmonary disease) J44.9 Peripheral arterial disease I73.9 S/P CABG (coronary artery bypass graft) Z95.1
[2022-06-03 17:17] LABS: D Dimer 0.42 ug/mIFEU (0-0.59)
--- NOTE | 2022-06-03 17:45 | ECG_ITS ---
[facility] Test Date: 2022-06-03 Pat Name: Makenzie Ambrocio Department: Room: Gender: Female Bench Hand Machine: : 1945 Requested By: Michael Haywood Order Number: [id number] Zoe MD: Haja Mcleod M.D. Measurements Intervals [place] Rate: 60 P: -71 FL: 154 QRS: -84 QRSD: 149 T: -30 QT: 456 QTc: 457 Interpretive Statements ECTOPIC ATRIAL RHYTHM WITH OCCASIONAL SUPRAVENTRICULAR PREMATURE COMPLEXES RIGHT BUNDLE BRANCH BLOCK [120+ ms QRS DURATION, UPRIGHT V1, 40+ ms S IN I/aVL/V4/V5/V6] LEFT ANTERIOR FASCICULAR BLOCK [QRS AXIS <= -45, QR IN I, RS IN II] POSSIBLE ANTEROSEPTAL MYOCARDIAL INFARCTION , OF INDETERMINATE AGE [30 ms Q WAVE IN V1-V4] Compared to ECG 06/03/2022 15:22:09 Ectopic atrial rhythm now present Myocardial infarct finding now present Sinus rhythm no longer present Electronically Signed On 06-05-2022 16:46:36 CDT by Haja Mcleod M.D. [email or web address]
[2022-06-03 18:28] LABS: Troponin 5 2HR 95.44 ng/L (0-10)
[2022-06-03 18:30] LABS: Troponin 5 2HR Delta 14.44 ABS# (0-10)
[2022-06-03 19:15] VITALS: BP 127/58; PULSE 69; RESP 21; O2SAT 94
--- NOTE | 2022-06-03 19:15 | USCV_ITS ---
Makenzie Ambrocio Age: 76 Gender: F : 1945 Exam Date: 06/03/2022 19:35 Ordering Phys: Aakash Dos Santos MD Technologist: GAIL [place] [facility] [place]: chest pain, hx CAD s/p CABG 2005, s/p cardiac stenting 2015. DM BP: 126 / 66 HR: 68 Rhythm: Sinus Technical Quality: Adequate MEASUREMENTS (Male / Female) Normal Values 2D ECHO LV Diastolic Diameter PLAX 4.4 cm 4.2 - 5.9 / 3.9 - 5.3 cm LV Systolic Diameter PLAX 2.9 cm IVS Diastolic Thickness 0.8 cm 0.6 - 1.0 / 0.6 - 0.9 cm IVS Systolic Thickness 0.9 cm LVPW Diastolic Thickness 0.8 cm 0.6 - 1.0 / 0.6 - 0.9 cm LVPW Systolic Thickness 1.1 cm LVOT Diameter 1.9 cm LV Ejection Fraction 2D Teich 62.8 % LV Ejection Fraction MOD 2C 66.4 % LV Ejection Fraction 2C AL 66.3 % LA Diameter 3.7 cm LA Width 4.0 cm LA Height 5.3 cm RA Width 4.0 cm RA Height 3.6 cm Aorta at Sinotubular Diameter 3.0 cm IVC Diameter 1.2 cm M-MODE Aortic Annulus Diameter 2.7 cm LA Ao Ratio MM 1.4 MV E Point Septal Separation 0.3 cm DOPPLER AV Peak Velocity 124.0 cm/s LVOT Peak Velocity 73.0 cm/s AV Area Cont Eq vti 1.6 cm squared AV Area Cont Eq pk 1.7 cm squared MV Area PHT 3.9 cm squared Mitral E to A Ratio 2.0 MV E' Velocity 52.5 cm/s Mitral E to MV E' Ratio 11.9 Mitral E to LV E' Lateral Ratio 10.7 Mitral E to LV E' Septal Ratio 13.4 TR Peak Velocity 304.3 cm/s TR Peak Gradient 37.0 mmHg TV Peak E Velocity 32.0 cm/s Right Atrial Pressure 5.0 mmHg Pulmonary Artery Systolic Pressu 42.0 mmHg PV Peak Velocity 85.0 cm/s RV Acceleration Time 0.1 s RV Ejection Time 0.3 s RV AcT/ET 0.4 FINDINGS Left Ventricle Normal left ventricular size and systolic function, EF 65 %. No regional wall motion abnormalities. Right Ventricle Normal right ventricular size and systolic function. Right Atrium The right atrium is normal in size. Left Atrium Mildly increased left atrial size. Mitral Valve Thickened mitral valve. Moderate-severe mitral valve regurgitation. Aortic Valve Mild aortic valve regurgitation. Tricuspid Valve Trace to mild tricuspid valve regurgitation. Estimated pulmonary artery peak systolic pressure 42 mmHg Pulmonic Valve Trace pulmonary valve regurgitation. Pericardium Normal pericardium without effusion. Aorta Normal ascending aorta dimension. IVC The inferior vena cava appears normal. CONCLUSIONS Normal left ventricular size and systolic function, EF 65 %. No regional wall motion abnormalities. Thickened mitral valve. Moderate-severe mitral valve regurgitation. Mildly increased left atrial size. Mild aortic valve regurgitation. Trace to mild tricuspid valve regurgitation. Estimated pulmonary artery peak systolic pressure 42 mmHg. Trace pulmonary valve regurgitation. There is no pericardial effusion. There are no intracardiac masses. Comparison with the previous study is difficult because of the difference in the technical quality. The mitral regurgitation appears to be more severe with the current study Dr Haja Mcleod MD [facility] (Electronically Signed) Final Date: 04 June 2022 08:38 S
[2022-06-03] MEDS: enoxaparin 40 mg/0.4 mL Syringe SUBCUT (19:19)
[2022-06-03] MEDS: clopidogrel 300 mg Tablet PO (19:27)
[2022-06-03] MEDS: magnesium oxide 400 mg tablet 800 MG PO (19:27)
[2022-06-03 20:00] LABS: Vitamin B12 506 pg/mL (232-1245)
[2022-06-03] MEDS: carvedilol 3.125 mg Tablet PO (20:47)
[2022-06-03 20:59] LABS: Estmated Average Glucose 154
[2022-06-03 21:52] VITALS: PULSE 87
[2022-06-03 22:11] LABS: Troponin 5 6HR 103.4 ng/L (0-10); Troponin 5 6HR Delta 22.4 ng/L (0-12)
[2022-06-04] VITALS (120 sets, daily range): BP systolic 93–134; BP diastolic 57–85; PULSE 56–91; RESP 11–27; TEMP 36.6–37; O2SAT 88–100
[2022-06-04 03:49] LABS: Magnesium 1.9 mg/dL (1.7-2.3)
[2022-06-04] MEDS: enoxaparin 40 mg/0.4 mL Syringe SUBCUT (05:29)
[2022-06-04] MEDS: levothyroxine 25 mcg Tablet PO (05:29)
--- NOTE | 2022-06-04 08:27 | PM.PN ---
Subjective Subjective: This morning patient is n.p.o. Awaiting for angiogram Spoke with Dr. Mcleod He will speak with Dr. Cameron once he is out of procedure No active chest pain Patient has Nitropaste on her chest No overnight events Hemodynamically stable Vitals/I&O/Wt Last Vital Signs Temp 97.9 F 06/04/22 04:49 Pulse 78 06/04/22 08:18 Resp 11 L 06/04/22 08:18 BP 102/71 06/04/22 05:30 Pulse Ox 92 06/04/22 07:55 O2 Del Method Nasal Cannula 06/04/22 04:49 06/03/22 06/04/22 06/04/22 22:59 06:59 14:59 Intake Total 240 / 240 240 / 480 Balance 240 / 240 240 / 480 Weight last 48 hrs Weight 43.091 kg Physical Exam Narrative: Patient resting comfortably S1, S2 Abdomen soft No active chest pain Nonfocal exam Appropriate mood and affect Euvolemic Abdomen soft Data 06/03/22 15:42 06/03/22 15:42 A&P Assessment and plan (1) ACS (acute coronary syndrome): (2) Unstable angina: (3) History of coronary artery disease: (4) Seasonal allergies: (5) COPD (chronic obstructive pulmonary disease): (6) Chronic obstructive pulmonary disease: Qualifiers: COPD type: COPD with acute lower respiratory infection Qualified Code(s): J44.0 - Chronic obstructive pulmonary disease with (acute) lower respiratory infection (7) Hypertension: Qualifiers: Hypertension type: primary hypertension Qualified Code(s): I10 - Essential (primary) hypertension (8) Peripheral arterial disease: Plan NSTEMI spoke with Dr. Mcleod No overnight events Patient has remained chest pain-free since admission Awaiting angiogram today She is n.p.o. D-dimer unremarkable Continue ACS protocol Chronic hypoxia: Uses 3 L at baseline No active wheezing or crackles Lives with her Full code N.p.o. Hemoglobin A1c 7.0 carries history of diabetes, will keep her on sliding scale Currently n.p.o. Most likely she will be able to go home on Tuesday with dual antiplatelet therapy, atorvastatin, low-dose lisinopril, will avoid beta-ella OR Trental ella because she remained bradycardic initially monitor on telemetry for now Attestations Medical Necessity Statement*: Likely discharge tomorrow after angiogram Diagnoses ACS (acute coronary syndrome) I24.9 Unstable angina I20.0 History of coronary artery disease Z86.79 Seasonal allergies J30.2 COPD (chronic obstructive pulmonary disease) J44.9 Hypertension I10 Hypertension type: primary hypertension Peripheral arterial disease I73.9
[2022-06-04] MEDS: clopidogrel 75 mg Tablet PO (09:10)
[2022-06-04] MEDS: magnesium oxide 400 mg tablet PO (09:10)
[2022-06-04] MEDS: carvedilol 3.125 mg Tablet PO ×2 (09:10→21:59)
--- NOTE | 2022-06-04 10:08 | P.PN_ITS ---
Subjective Subjective: Patient had coronary angiogram that showed critical, heavily calcified mid RCA stenosis. [place] LAD was patent, diagonal artery has significant disease but not a large vessel. SVG to OM was patent. GARCIA to LAD known occluded. She underwent successful revascularization of mid RCA with orbital arthrectomy and DESx 1. Tolerated the procedure well. Vitals/I&O/Wt Last Vital Signs Temp 97.9 F 06/04/22 04:49 Pulse 78 06/04/22 08:18 Resp 11 L 06/04/22 08:18 BP 102/71 06/04/22 05:30 Pulse Ox 92 06/04/22 07:55 O2 Del Method Nasal Cannula 06/04/22 04:49 06/03/22 06/04/22 06/04/22 22:59 06:59 14:59 Intake Total 240 / 240 240 / 480 Balance 240 / 240 240 / 480 Weight last 48 hrs Weight 95 lb Physical Exam Narrative: GENERAL: Patient is alert, awake and oriented x3. [] NECK: No jugular vein distension. [] HEENT: No cyanosis. No icterus. No pallor. [] HEART: Irregular S1 and S2. LUNGS: Clear to auscultate bilaterally. [] CENTRAL NERVOUS SYSTEM: Grossly nonfocal. [] EXTREMITIES: Lower extremities with 1+ edema bilaterally. Data 06/03/22 15:42 06/03/22 15:42 A&P Assessment and plan (1) Atherosclerotic heart disease of [place] coronary artery with unstable angina pectoris: Patient has non-ST elevation [place]. Coronary angiogram showed critical heavily calcified mid RCA stenosis. Underwent successful revascularization with orbital arthrectomy and BENNIE x1. Continue aspirin and Plavix. LV systolic function is normal on echocardiogram. (2) Controlled diabetes mellitus: Continue treatment per primary team. Qualifiers: Diabetes mellitus type: type 2 Diabetes mellitus termination clerk insulin use: without care home use Diabetes mellitus complication status: without complication Qualified Code(s): E11.9 - Type 2 diabetes mellitus without complications (3) Bronchiectasis: Treatment as per the primary. Qualifiers: Bronchiectasis type: with acute lower respiratory infection Qualified Code(s): J47.0 - Bronchiectasis with acute lower respiratory infection (4) Ventricular arrhythmia: Close monitoring. Has frequent PVCs. (5) COPD (chronic obstructive pulmonary disease): Optimizing the bronchodilators would be appropriate. (6) Peripheral arterial disease: Continue medical therapy. (7) S/P CABG (coronary artery bypass graft): Plan Patient had successful revascularization of mid RCA. Continue aspirin and Plavix. If patient stays stable, can be discharged home tomorrow. Attestations Medical Necessity Statement*: Care expected to cross 2 midnights. Coding Level of Care Code Acute Code for [facility] Diagnoses Atherosclerotic heart disease of [place] coronary artery with unstable angina pectoris I25.110 Controlled diabetes mellitus E11.9 Diabetes mellitus type: type 2 Diabetes mellitus care home insulin use: without termination clerk use Diabetes mellitus complication status: without complication Bronchiectasis J47.0 Bronchiectasis type: with acute lower respiratory infection Ventricular arrhythmia I49.9 COPD (chronic obstructive pulmonary disease) J44.9 Peripheral arterial disease I73.9 S/P CABG (coronary artery bypass graft) Z95.1
--- NOTE | 2022-06-04 11:50 | XACV_ITS ---
Exam Room: [facility] Ht: 160 cm Wt: 43 kg BSA: 1.37 m2 Gender: Female : 1945 Any Known Allergies: Other Exam Priority: Routine Procedure(s): Procedure Description: Diagnostic procedure Procedure Description: PCI procedure Procedure Description: Drug Eluting Coronary Stent Procedure Description: PTCA Procedure Description: Coronary Atherectomy Procedure Description: Miscellaneous Procedure Description: ACT Procedure Description: Coronary Angiography Diagnostic Cath Status: Urgent Diagnostic Findings * Left Main has minimal luminal irregularities. * Left Anterior Descending has mild to moderate luminal irregularities. * 1st Diagonal: obstructive 70-80% stenosis, PENG: 3 flow. * Bypass grafts: GARCIA to LAD: * Known to be occluded. Not injected * SVG to OM: * Patent. * Mid Right Coronary Artery: subtotal occlusion, PENG: 2 flow. In distal RCA, there is an under-expanded old stent with 50% in-stent restenosis. * Proximal Circumflex: chronic total occlusion, PENG: 0 flow. * Coronary angiography shows right dominance. PCI Status: Urgent PCI Indication: NSTE - ACS Interventional Findings * Procedure Detail: We engaged RCA with JR4 guide catheter. IV heparin was administered to maintain anticoagulation. We attempted to primarily wired mid RCA subtotal occlusion with a Viper wire. However it was unsuccessful. We then switched to run-through guidewire. Balloon would not cross the stenosis. We switched to 1.25 x 6 mm semicompliant balloon and did serial dilations. This allowed the balloon to be advanced past the stenosis. We then switched run-through wire to a Viper wire through this over the wire balloon. Several runs of orbital arthrectomy were performed. This was followed by dilation of the stenosis with 2.5 x 12 mm semicompliant balloon. We then performed predilation with 3.25 x 12 mm NC balloon. This balloon expanded well. We placed 3.5 x 22 mm resolute [place] drug-eluting stent in the mid RCA. It was postdilated with a 4.0 x 12 mm NC balloon at high pressure. At this time final angiogram was performed that showed excellent stent expansion, no residual stenosis and PENG-3 flow. Guidewire and guide catheter were removed. Patient left the Pulp Screen Operator in a stable condition.. * Mid Right Coronary Artery: 99% stenosis treated with a SANDY SPRINTER 1.25X6MM BALLOON, AB TREK 2.50X12 RX BALLOON, SANDY WICK EUPHORA RX [id number] BALLOON, SANDY Avila SHAISTA 3.5X22 BENNIE, and MDMontez WICK EUPHORA RX [id number] BALLOON. 0% residual stenosis, PENG: 3 flow. Conclusions 1. Heavily calcified, subtotal occlusion of mid RCA s/p successful revascularization with orbital arthrectomy and BENNIE x1.. 2. [place] to proximal LAD has significant stenosis however is a medium sized vessel and will be treated medically at this time. 3. Patient has prior CABG. 4. Mid Right Coronary Artery was treated with a Balloon, Balloon, Balloon, Drug Eluting Stent, and Balloon. Recommendations * Transfer back to cardiac stepdown unit. * Dual antiplatelet therapy with aspirin and Plavix for atleast 1 year. * High intensity statin therapy. * Outpatient cardiology followup in 4 weeks. Interventional RX Recommendation: PCI w/o planned CABG Diagnostic RX Recommendation: PCI w/o planned CABG Anticoagulation: Heparin Pressures Phase:Rest AO : 119 / 58 ( 82 ) @ 2:25:00 PM 93 / 36 ( 61 ) @ 2:30:00 PM 70 / 26 ( 44 ) @ 2:41:00 PM 68 / 29 ( 49 ) @ 2:56:00 PM 67 / 52 ( 60 ) @ 3:09:00 PM 89 / 48 ( 66 ) @ 3:16:00 PM 96 / 58 ( 76 ) @ 3:33:00 PM Clinical Evaluation EBL: 5mL-10mL Procedural Details Procedure Consent Obtained. Pre-Procedure Time Out. Identified patient by full name and date of as verbalized by the patient/guarantor. Does the consent match the physician's order: Yes. Accurate & Complete Informed Consent: Yes. Inpatient/Outpatient History & Physical on Chart: Yes. If H&P is completed, is and addenduem needed: No. Visualize and Verify Site with Patient/Guarantor: N/A. Relevant Radiology Images available: Yes. The risks, benefits, and alternatives of sedation and/or procedure were discussed by physician. The patient agrees to continue. Procedure started. [facility] Clinical Fraility Score: 3: Managing Well. Pulp Screen Operator Indications: ACS > 24 hours/NSTEMI. Chest Pain Symptom Assessment: Typical Angina Symptoms. Cardiovascular Instability: No. Correct patient, site and procedure confirmed by cath team. PERRLA. Strong, equal hand iron plastic bullet maker bilaterally. Lungs clear x 5 lobes. IV Site on Arrival: 20 gauge in the right forearm. IV Fluids: 0.9% NaCl at KVO. 0 mL infused prior to geophysical laboratory chief. Pre Procedural Pulses: bilateral dorsalis pedis was 2+. Pre Procedural Pulses: bilateral posterior tibial was 2+. Oxygen started at 2liters/min via nasal canula. bilateral groins was prepped with chloroprep then draped in the usual sterile fashion. Physician notified. Equipment: 6F - Femoral. Cardiac Cath Pack. ACIST Manifold Kit Model BT 2000. Heparinized Saline (2 units/mL), 1000 mL bag. Kit, Micropuncture. Physician arrived. Physician scrubbed in. Immediate Pre-Procedure Time Out. Correct Patient: Yes; Correct Procedure: Yes; Correct Site: Yes; Correct Patient Position: Yes; Correct Supplies: Yes; Dried Flammable Prep: Yes; Blood Products Available: N/A;. Lidocaine 1% infiltrated to the right groin. Venous access obtained with micropuncture set. Venous sheath flushed and connected to 0.9% NaCl with extension tubing. Arterial access obtained with micropuncture set. Existing IV not working, NS now ingusing through the 5fr venous sheath in the groin. A 6 tristanian JL4 catheter in over the standard J wire. Multiple views taken of left coronary artery. Catheter removed over the standard J wire. A 6 tristanian JR4 catheter in over the standard J wire. Cine of the RCA performed. Catheter redirected to the SVG. SVG's to OM visualized and patent. Catheter removed over the standard J wire. 6 tristanian JR 4 guide catheter was inserted over the standard J wire. Runthrough guidewire was advanced through the guide catheter to lesion in the mid RCA. Viperwire Advance coronary guidewire in and unable to advance distal to the lesion in the Mid RCA. Viperwire out. 300cm Floppy Runthrough guidewire in and anvanced distal to the lesion in the MID RCA. Short Runthrough guidewire out. Teleport microcatheter in over the 300cm Runthrough guidewire and unable to cross. Teleport microcather out. ACT drawn. Results out of range hig. Will re-draw. Trek 2.5mm x 12mm balloon in, unable to cross, removed intact. Inflation number : 1 A MDT SPRINTER 1.25X6MM BALLOON was prepped and advanced across the Mid RCA , then inflated to 12 NERY for 0:15 seconds. Inflation number: 2 The MDT SPRINTER 1.25X6MM BALLOON was reinflated across the Mid RCA, to 12 NERY for 0:20 seconds. Inflation number: 3 The MDT SPRINTER 1.25X6MM BALLOON was reinflated across the Mid RCA, to 12 NERY for 0:21 seconds. 300cm Runthrough guidewire out. Viperwire in through the Sprinter balloon. Sprinter Balloon out. Diamondback 360 1.25mm x 135cm Coronary OAS in over the Viperwire. Orbital atherectomy of the MID RCA performed. ACT drawn. Results out of range high. Will re-draw. OAS out over the viper wire. Teleport microcatheter in over the Viperwire. Viperwire out. 300cm Runthrough guidewire in. Teleport microcatheter out over the 300cm Runthrough guidewire. Inflation number : 4 A AB TREK 2.50X12 RX BALLOON was prepped and advanced across the Mid RCA , then inflated to 12 NERY for 0:46 seconds. Balloon out. Results checked. Inflation number : 5 A MDT NC EUPHORA RX [id number] BALLOON was prepped and advanced across the Mid RCA , then inflated to 12 NERY for 0:40 seconds. Balloon out. Results checked. Inflation Number : 6 A MDT R SHAISTA 3.5X22 BENNIE -Lot Number# [id number] was prepped and advanced across the Mid RCA. The stent was deployed at 14 NERY for 0:23 seconds. Exp. 2024-03-24. Stent balloon out over wire. Results checked. Balloon inserted to lesion in the mid RCA. Inflation number : 7 A MDT NC EUPHORA RX [id number] BALLOON was prepped and advanced across the Mid RCA , then inflated to 20 NERY for 0:20 seconds. Inflation number: 8 The MDT NC EUPHORA RX 4.16X44OC BALLOON was reinflated across the Mid RCA, to 20 NERY for 0:14 seconds. Results checked. ACT drawn. Results seconds. Therapeutic limits - pre-heparin administration 90-150 seconds and monitoring heparin during a vascular procedure >250 seconds. Balloon out. Guide catheter out. A Suture was successful obtaining hemostatsis at the Right Femoral vein insertion site. A Suture was successful obtaining hemostatsis at the Right Femoral artery insertion site. Post Procedure: Pulses reassessed and unchanged. PERRLA. Strong, equal hand iron plastic bullet maker bilaterally. No VTE prophylaxis required. Medication's Wasted: Nitro = 49 mg. Medication's Wasted: Heparin = 4000 u. Medication's Wasted: Other = Versed1 mg. Medication's Wasted: Other = Fentanyl 75 mcg. Total IV fluids: 562 mL. Post-op diagnosis: Critical RCA stenosis, S/P revascularization with atherectomy and drug eluding stent x1. Complications: none. Medication's Wasted: Other = Neosynephrine 10 mg. Estimated blood loss: 5mL-10mL. Responsiveness - Normal response to verbal stimuli; alert and oriented, PERRLA. Airway - Unaffected, no intervention required; spontaneous ventilation. Circulation: W/N/L, pulses unchanged. Nausea/Vomiting: No. Procedure completed. Patient transferred by bed to 1st floor. Vital chart was stopped. Access Site Site: Right Femoral vein Sheath Size: 5 Fr Hemostasis Method: Suture Hemostasis Success: Successful Site: Right Femoral artery Sheath Size: 6 Fr Hemostasis Method: Suture Hemostasis Success: Successful Procedure Medications Start: 1:23 PM Stop: 1:23 PM Medication: Versed Amount: 1 mg Route: I.V. Start: 1:23 PM Stop: 1:23 PM Medication: Fentanyl Amount: 25 mcg Route: I.V. Start: 1:26 PM Stop: 1:26 PM Medication: Versed Amount: 1 mg Route: I.V. Start: 1:42 PM Stop: 1:42 PM Medication: Heparin Amount: 4000 units Route: I.V. Start: 1:48 PM Stop: 1:48 PM Medication: 0.9% Saline Amount: 250 ml Route: I.V. bolus Start: 2:15 PM Stop: 2:15 PM Medication: 0.9% Saline Amount: 250 ml Route: I.V. bolus Start: 2:17 PM Stop: 2:17 PM Medication: Versed Amount: 1 mg Route: I.V. Start: 2:19 PM Stop: 2:19 PM Medication: Heparin Amount: 1000 units Route: I.V. Start: 2:41 PM Stop: 2:41 PM Medication: Plavix Amount: 300 mg Route: P.O. Start: 2:41 PM Stop: 2:41 PM Medication: Aspirin Amount: 81 mg Route: P.O. I, the attending physician, have reviewed and verified all procedure medications. Yes, all medications given per verbal order History/Risk Factors Hypertension: No Dyslipidemia: Yes Peripheral Arterial Disease (PAD): No Myocardial Infarction (PA): Yes Obesity: No Renal Disease: No Tobacco Use: Former Prior Interventions PCI: Yes CABG: Yes Valve Surgery: No Date of PCI: 06/04/2015 Report Signatures Finalized by Eduard Valladares MD on 06/08/2022 01:11 PM
--- NOTE | 2022-06-04 12:52 | W.PM.OPSUD ---
Surgery/Procedure H&P Update DATE OF PROCEDURE: June 04, 2022 DATE H&P PERFORMED: 06/03/22 H&P UPDATE INFORMATION: I have reviewed H&P completed within last 30 days, I have examined patient prior to procedure and No changes to prior documentation PREOP DIAGNOSIS: NSTEMI PRIMARY INDICATION FOR PROCEDURE: NSTEMI PLANNED PROCEDURE: Left heart cath with possible percutaneous coronary intervention PATIENT REASSESSED PRIOR TO SEDATION, WITH NO CHANGE NOTED: Yes PHYSICAL EXAM: alert, oriented x 3, clear to auscultation bilaterally and regular rate & rhythm AIRWAY EVAL/ANESTHESIA PLAN: normal airway, ASA III, Local Anesthesia, Risks, benefits & alternatives of sedation and/or procedure discussed and Patient agrees to continue as planned ADDITIONAL INFORMATION: Moderate sedation
--- NOTE | 2022-06-04 13:14 | PC.NURSE ---
to cardiac medical lab scientist at this time
[2022-06-04] MEDS: sodium chloride 0.9% 1,000 ML 100 ML IV (14:55)
[2022-06-04 17:05] LABS: Glucose Point of Care 71 mg/dL (70-110)
[2022-06-04 17:50] LABS: Partial Thromboplastin Time 104.5 SECONDS (23.9-36.7)
[2022-06-04 19:22] LABS: Partial Thromboplastin Time 35.7 SECONDS (23.9-36.7)
--- NOTE | 2022-06-04 20:46 | PC.NURSE ---
Right femoral Arterial sheath pulled at 2024, manual pressure applied. At 20:35 right venous shealth pulled, manual pressure continued. At 20:45 no signs of bleeding, dry sterile dressing applied. Site is soft to palpation, no hematoma present. Right pedal pulses are present. Patient will be on bedrest till 02:45am, patient is aware.
[2022-06-05] VITALS (7 sets, daily range): BP systolic 98–119; BP diastolic 50–60; PULSE 67–72; RESP 16–24; TEMP 36.8–36.9; O2SAT 93–96
[2022-06-05] MEDS: sodium chloride 0.9% 1,000 ML 100 ML IV (01:36)
[2022-06-05 03:40] LABS: Basophils # 0.1 10^3/uL (0.0-0.1); Basophils % 0.9 %; Eosinophils # 0.3 10^3/uL (0.0-0.8); Hematocrit 36.7 % (37.0-47.0); Hemoglobin 11.5 g/dL (11.5-15.3); Lymphocytes # 1.1 10^3/uL (0.8-4.8); Lymphocytes % 18.8 %; Mean Corpuscular HGB Conc 31.3 g/dL (30.0-36.0); Mean Corpuscular Volume 89.3 fl (81-99); Mean Platelet Volume 12.3 fL (7.4-10.4); Monocytes # 0.8 10^3/uL (0.2-0.9); Monocytes % 12.9 %; Neutrophils # 3.61 10^3/uL (1.8-7.7); Neutrophils % 62.1 %; Nucleated Red Blood Cells % 0 %; Platelet Count 105 10^3/cmm (130-400); Red Blood Count 4.11 10^6/uL (4.1-5.3); Red Cell Distribution Width 14.7 % (12.1-15.1); White Blood Count 5.8 10^3/uL (4.0-10.0)
[2022-06-05 04:02] LABS: Anion Gap 10.1 (5-19); Blood Urea Nitrogen 10 mg/dL (8-23); Calcium 8.2 mg/dL (8.5-10.5); Carbon Dioxide 26 mmol/L (22-29); Chloride 108 mmol/L (98-107); Creatinine Clr Calc Pharmacy 40.6971; Glucose 117 mg/dL (65-115); Osmolality Calculated 290 mOsm/kg (285-295); Potassium 4.1 mmol/L (3.5-5.1); Sodium 140 mmol/L (136-145)
[2022-06-05] MEDS: levothyroxine 25 mcg Tablet PO (05:02)
--- NOTE | 2022-06-05 06:01 | PC.NURSE ---
Patients bedrest completed at 2:45am. Ramires catheter removed at 4:00am. Patient OOB to BR with assist at 6am. Right groin site is soft, no hematoma present, pedals pulses are present. dressing is dry and intact.
[2022-06-05 06:25] LABS: Glucose Point of Care 98 mg/dL (70-110)
--- NOTE | 2022-06-05 07:39 | PM.PN ---
Subjective Subjective: Patient is doing well. No chest pain. Had revascularization of critical mid RCA stenosis with orbital arthrectomy and BENNIE x 1. Vitals/I&O/Wt Last Vital Signs Temp 98.5 F 06/05/22 04:54 Pulse 72 06/05/22 06:00 Resp 22 H 06/05/22 04:54 BP 98/60 06/05/22 04:54 Pulse Ox 96 06/05/22 04:54 O2 Del Method Nasal Cannula 06/05/22 04:54 O2 Flow Rate 3 06/04/22 20:50 06/04/22 06/05/22 06/05/22 22:59 06:59 14:59 Intake Total 420 / 420 1120 / 1540 Output Total 400 / 400 550 / 950 Balance 570 / 590 Weight last 48 hrs Weight 95 lb Physical Exam Narrative: GENERAL: Patient is alert, awake and oriented x3. [] NECK: No jugular vein distension. [] HEENT: No cyanosis. No icterus. No pallor. [] HEART: Irregular S1 and S2. LUNGS: Clear to auscultate bilaterally. [] CENTRAL NERVOUS SYSTEM: Grossly nonfocal. [] EXTREMITIES: Lower extremities with 1+ edema bilaterally. Urinary Catheter Management: Ramires: Cath Placed During This Visit: yes, but has since been removed by the nurse Reason for Continuing Indwelling Catheter: Acute Urinary Retention or Obstruction Urinary Catheter Date of Insertion: 06/04/22 Urinary Catheter Time of Insertion: 17:47 Date Urinary Catheter Removed: 06/05/22 Time Urinary Catheter Discontinued: 04:00 Data 06/05/22 03:29 06/05/22 03:29 A&P Assessment and plan (1) Atherosclerotic heart disease of [place] coronary artery with unstable angina pectoris: Patient had non-ST elevation MD. Coronary angiogram showed critical, heavily calcified mid RCA stenosis. Underwent successful revascularization with orbital arthrectomy and BENNIE x1. Continue aspirin and Plavix for atleast 1 year. Will need new prescription for plavix. LV systolic function is normal on echocardiogram. (2) Controlled diabetes mellitus: Continue treatment per primary team. Qualifiers: Diabetes mellitus type: type 2 Diabetes mellitus intermediate manager insulin use: without long-term use Diabetes mellitus complication status: without complication Qualified Code(s): E11.9 - Type 2 diabetes mellitus without complications (3) Bronchiectasis: Treatment as per the primary. Qualifiers: Bronchiectasis type: with acute lower respiratory infection Qualified Code(s): J47.0 - Bronchiectasis with acute lower respiratory infection (4) Ventricular arrhythmia: Stable (5) COPD (chronic obstructive pulmonary disease): Optimizing the bronchodilators would be appropriate. (6) Peripheral arterial disease: Continue medical therapy. (7) S/P CABG (coronary artery bypass graft): Plan Patient had successful revascularization of mid RCA yesterday. She is staying stable. Continue aspirin and Plavix. She is stable to be discharged from cardiology standpoint. Please call with questions. Attestations Medical Necessity Statement*: Care expected to cross 2 midnights. Coding Level of Care Code Acute Code for [facility] Diagnoses Atherosclerotic heart disease of [place] coronary artery with unstable angina pectoris I25.110 Controlled diabetes mellitus E11.9 Diabetes mellitus type: type 2 Diabetes mellitus intermediate manager insulin use: without intermediate manager use Diabetes mellitus complication status: without complication Bronchiectasis J47.0 Bronchiectasis type: with acute lower respiratory infection Ventricular arrhythmia I49.9 COPD (chronic obstructive pulmonary disease) J44.9 Peripheral arterial disease I73.9 S/P CABG (coronary artery bypass graft) Z95.1
[2022-06-05] MEDS: magnesium oxide 400 mg tablet PO (09:16)
[2022-06-05] MEDS: carvedilol 3.125 mg Tablet PO (09:16)
[2022-06-05] MEDS: clopidogrel 75 mg Tablet PO (09:17)
[2022-06-05 12:03] LABS: Glucose Point of Care 122 mg/dL (70-110)
[2022-06-05] MEDS: aspirin 81 mg EC Tablet PO (12:50)
--- NOTE | 2022-06-05 13:45 | PC.NURSE ---
discharge instructions given and explained.pt and spouse verb understanding of instructions.tuesday's dose of plavix supplied,since pharmacy is not open on sundays.pt's spouse states he will parts picker plavix at pharmacy first thing tuesday morning.discharged via w/c to exit.spouse to drive pt home
--- NOTE | 2022-06-05 14:13 | PM.DCS ---
Discharge Providers Date of Admission: 06/03/22 16:44 Date of Discharge: June 05, 2022 Attending Provider at Admission: Aakash Dos Santos MD Attending Provider at Discharge: Keanu Major DO Primary Care Provider: Keanu Major DO Diagnoses at Discharge Discharge Diagnosis (1) Atherosclerotic heart disease of [place] coronary artery with unstable angina pectoris: Status: Acute (2) Controlled diabetes mellitus: Status: Acute Qualifiers: Diabetes mellitus type: type 2 Diabetes mellitus fdc insulin use: without fdc use Diabetes mellitus complication status: without complication Qualified Code(s): E11.9 - Type 2 diabetes mellitus without complications (3) Bronchiectasis: Status: Acute Qualifiers: Bronchiectasis type: with acute lower respiratory infection Qualified Code(s): J47.0 - Bronchiectasis with acute lower respiratory infection (4) Ventricular arrhythmia: Status: Acute (5) COPD (chronic obstructive pulmonary disease): Status: Acute (6) Peripheral arterial disease: Status: Acute (7) S/P CABG (coronary artery bypass graft): Status: Acute Reason for Visit Reason for Visit: chest pain Hospital Course Hospital Course Ms. Ambrocio is a 76-year-old female with a history of previous CABG, CAD, recent stent placement, COPD, chronic hypoxic respiratory failure who uses 3 L oxygen at baseline. She presented to the ER after a few episodes of chest pain. She was seen in the ER last week and was discharged home after a negative cardiac work-up. She began to have chest pain the following day and again came to the ER for evaluation. She was noted to have an elevated troponin at that time and she was admitted for ACS. Cardiology was consulted. EKG did show right bundle branch block and poor R wave progression. She had an elevated troponin with an elevated delta x 2. She was admitted and started on ACS protocol. She was taken for angiogram and underwent revascularization of the RCA and stent placement. She was stable after her procedure. She denies any chest pain today. She feels that she can manage her care at home. Cardiology has agreed that patient could be discharged today. Discussed with patient today that I would like her to follow-up in 1 week with cardiology and with PCP. Physical Exam Narrative: General: Cooperative patient in no apparent distress. Well developed. HEENT: Normocephalic, Atraumatic. External ears normal. Nasal passages patent without drainage. MMM. Heart: RRR. Resp: LCTA. No respiratory distress, no use of accessory muscles. Abd: Soft, non-tender. Non-distended. Extremities: No edema. Skin: No rash or lesions on exposed areas. Urinary Catheter Management: Ramires: Cath Placed During This Visit: yes, but has since been removed by the nurse Reason for Continuing Indwelling Catheter: Acute Urinary Retention or Obstruction Urinary Catheter Date of Insertion: 06/04/22 Urinary Catheter Time of Insertion: 17:47 Date Urinary Catheter Removed: 06/05/22 Time Urinary Catheter Discontinued: 04:00 Discharge Data Studies Completed and Pending Completed Studies During Hospitalization Category Date Time Status XR chest 1V portable [id number] Stat Exams 06/03/22 15:29 Completed CV. 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 No acute cardiopulmonary process. Laboratory Results WBC 5.8 10^3/uL (4.0-10.0) 06/05/22 03:29 RBC 4.11 10^6/uL (4.1-5.3) 06/05/22 03:29 Hgb 11.5 g/dL (11.5-15.3) 06/05/22 03:29 Hct 36.7 % (37.0-47.0) L 06/05/22 03:29 MCV 89.3 fl (81-99) 06/05/22 03:29 MCH 28.0 pg (28.0-34.0) 06/05/22 03:29 MCHC 31.3 g/dL (30.0-36.0) 06/05/22 03: RDW 14.7 % (12.1-15.1) 06/05/22 03:29 Plt Count 105 10^3/cmm (130-400) L 06/05/22 03:29 MPV 12.3 fL (7.4-10.4) H 06/05/22 03: Neut % (Auto) 62.1 % 06/05/22 03:29 Lymph % (Auto) 18.8 % 06/05/22 03:29 [place] % (Auto) 12.9 % 06/05/22 03: Eos % (Auto) 5.0 % 06/05/22 03: Baso % (Auto) 0.9 % 06/05/22 03:29 Neut # (Auto) 3.61 10^3/uL (1.8-7.7) 06/05/22 03: Lymph # (Auto) 1.1 10^3/uL (0.8-4.8) 06/05/22 03: [place] # (Auto) 0.8 10^3/uL (0.2-0.9) 06/05/22 03: Eos # (Auto) 0.3 10^3/uL (0.0-0.8) 06/05/22 03: Baso # (Auto) 0.1 10^3/uL (0.0-0.1) 06/05/22 03: Nucleated RBC % (auto) 0 % 06/05/22 03: Nucleated RBCs # 0.0 /100WBC 06/05/22 03: APTT 35.7 SECONDS (23.9-36.7) D 06/04/22 18:54 D-Dimer 0.42 ug/mIFEU (0-0.59) 06/03/22 15:42 Sodium 140 mmol/L (136-145) 06/05/22 03: Potassium 4.1 mmol/L (3.5-5.1) 06/05/22 03: Chloride 108 mmol/L (98-107) H 06/05/22 03: Carbon Dioxide 26 mmol/L (22-29) 06/05/22 03:29 Anion Gap 10.1 (5-19) 06/05/22 03:29 BUN 10 mg/dL (8-23) 06/05/22 03: Creatinine 0.5 mg/dL (0.5-0.9) 06/05/22 03:29 GFR Calculation Not Reportable 06/05/22 03: Glucose 117 mg/dL (65-115) H 06/05/22 03:29 POC Glucose 122 mg/dL (70-110) H 06/05/22 11:45 Estimat Average Glucose 154 06/03/22 15:42 Hemoglobin A1c 7.0 % (4.0-6.0) H 06/03/22 15:42 Calculated Osmolality 290 mOsm/kg (285-295) 06/05/22 03:29 Calcium 8.2 mg/dL (8.5-10.5) L 06/05/22 03:29 Magnesium 1.9 mg/dL (1.7-2.3) 06/03/22 21:30 Total Bilirubin 0.3 mg/dL (0.15-1.2) 06/03/22 15:42 AST 22 U/L (0-32) 06/03/22 15:42 ALT 14 U/L (0-33) 06/03/22 15:42 Alkaline Phosphatase 66 U/L (35-105) 06/03/22 15:42 Troponin T Baseline 81 ng/L (0-10) H 06/03/22 15:42 Troponin T 120 Minute 95.44 ng/L (0-10) H 06/03/22 17:42 Delta Troponin T 14.44 ABS# (0-10) H* 06/03/22 17:42 Troponin T Hi Sens 6Hr 103.4 ng/L (0-10) H 06/03/22 21:30 Troponin T Hi Sens 6Hr Delta 22.4 ng/L (0-12) H* 06/03/22 21:30 Total Protein 5.6 g/dL (6.6-8.7) L 06/03/22 15:42 Albumin 3.3 g/dL (3.5-5.2) L 06/03/22 15:42 Globulin 2.3 g/dL (1.3-4.6) 06/03/22 15:42 Vitamin B12 506 pg/mL (232-1245) 06/03/22 15:42 TSH 1.40 uIU/mL (0.27-4.20) 06/03/22 15:42 Vitals Last Vital Signs Temp 98.2 F 06/05/22 07:48 Pulse 70 06/05/22 12:36 Resp 16 06/05/22 12:36 BP 119/55 06/05/22 07:48 Pulse Ox 96 06/05/22 12:36 O2 Del Method Room Air 06/05/22 08:00 O2 Flow Rate 3 06/04/22 20:50 Discharge Plan Discharge Patient Disposition: Home Condition: Stable Prescriptions: New clopidogrel 75 mg Tablet 75 mg PO DAILY Qty: 30 2RF Continued (DME) Diabetic Shoes See Rx Instructions .ROUTE .MEDSUPPLY Qty: 1 0RF Rx Instructions: As directed, with 3 pairs of inserts From Home. ([facility] [place] Custom Insoles See Rx Instructions .Route .MEDSUPPLY Qty: 1 0RF Rx Instructions: As directed ([facility] [place] Diabetic Shoes See Rx Instructions .Route .MEDSUPPLY Qty: 1 0RF Rx Instructions: As directed ([facility] [place] Diabetic Shoes with 3 sets of insoles See Rx Instructions .Route .MEDSUPPLY Qty: 1 0RF Rx Instructions: As directed by JOHN PAUL&O ([facility] [place] Custom arch supports See Rx Instructions .Route .MEDSUPPLY Qty: 1 0RF Rx Instructions: As directed by JOHN PAUL&O albuterol sulfate 90 mcg/actuation HFA aerosol inhaler 2 puff inhalation Q6H PRN (Reason: shortness of breath or wheezing) Qty: 8.5 2RF albuterol sulfate 2.5 mg /3 mL (0.083 %) solution for nebulization 2.5 mg inhalation DAILY PRN (Reason: shortness of breath or wheezing) Qty: 180 3RF (DME) Afflo Vest See Rx Instructions .Route .MEDSUPPLY Qty: 1 0RF Rx Instructions: twice daily. ([facility] [place] Diabetic shoes with 3 pairs of inserts See Rx Instructions .Route .MEDSUPPLY Qty: 1 0RF Rx Instructions: As directed J P [employer] O ([facility] [place]) INOGEN See Rx Instructions .Route .MEDSUPPLY Qty: 1 0RF Rx Instructions: Change portable oxygen source to INOGEN. (DME) Diabetic Shoes 3 sets of insoles See Rx Instructions .Route .MEDSUPPLY Qty: 1 0RF Rx Instructions: As directed by HOME aspirin 81 mg Tablet,Delayed Release (Dr/Ec) 81 mg PO DAILY@12 Hold Instructions: Resume on 02/22/19. PreserVision AREDS [id number] Capsule 1 cap PO DAILY@12 carvedilol [Coreg] 6.25 mg tablet 6.25 mg PO BID Rx Instructions: must administer with a meal/food cetirizine 10 mg tablet 10 mg PO QAM diltiazem HCl 60 mg tablet 60 mg PO DAILY@12 levothyroxine 25 mcg tablet 25 mcg PO QAM furosemide 20 mg tablet 20 mg PO DAILY PRN (Reason: Edema) rosuvastatin 10 mg tablet 10 mg PO BEDTIME Trelekassandra Ellipta 100-62.5-25 mcg blister with device 1 inh inhalation QAM Rx Instructions: UNDER 340B polyethylene glycol 3350 [Miralax] 17 gram Powder In Packet 17 g PO EVERY OTHER DAY Stool Softener Gummies 1 tab PO DAILY Discharge Orders: Discharge Order (Routine); Ordered 06/05/22 Ordered By: Keanu Major Referrals: Keanu Major, DO [Primary Care Provider] - ([facility] dr [facility] appointment for 1-2 weeks at [phone]) Deana Kline FNP [Nurse Practitioner] - 06/17/22 1:30 pm Discharge Diet: Usual diet Discharge Activity: Resume usual activity Patient Instructions: Clopidogrel (By mouth) (Plavix), Heart Attack (DC), Opioid Safety, Post Angiogram Home Care Instructions, Post Heart Attack Stoplight Discharge Attestations Time Spent in Discharge Care*: greater than 30 min Specific Discharge Activities: educating patient, educating and/or supporting family/caregiver, discussing with pcp/other providers, documenting/other paperwork and evaluating patient/reviewing data Status at Discharge: Cognitive status at discharge: cognitively intact, Behavioral status at discharge: cooperative, Functional status at discharge: independent ambulation, Overall status at discharge: patient is back to baseline Quality Metrics Clinical Quality Measures [ No reported AMI, CVA or VTE this stay] Coding Level of Care Code Acute Code for [facility] Fwd Diagnoses Atherosclerotic heart disease of [place] coronary artery with unstable angina pectoris I25.110 Controlled diabetes mellitus E11.9 Diabetes mellitus type: type 2 Diabetes mellitus fdc insulin use: without longwall foreman use Diabetes mellitus complication status: without complication Bronchiectasis J47.0 Bronchiectasis type: with acute lower respiratory infection Ventricular arrhythmia I49.9 COPD (chronic obstructive pulmonary disease) J44.9 Peripheral arterial disease I73.9 S/P CABG (coronary artery bypass graft) Z95.1
== END 2022-06-05 13:48 | disposition home or self-care (01) ==
LOC: ER 16:49 → CSU 18:27
PROVIDERS: Internal Medicine; Admitting Provider Internal Medicine; Emergency Provider Family Medicine; PCP Family Medicine; Visit Provider Family Medicine
DX: I25.110 Atherosclerotic heart disease of native coronary artery with unstable angina pectoris (principal); J47.0 Bronchiectasis with acute lower respiratory infection; J96.11 Chronic respiratory failure with hypoxia; E11.51 Type 2 diabetes mellitus with diabetic peripheral angiopathy without gangrene; I10 Essential (primary) hypertension; E78.5 Hyperlipidemia, unspecified; I45.10 Unspecified right bundle-branch block; R74.8 Abnormal levels of other serum enzymes; I08.0 Rheumatic disorders of both mitral and aortic valves; I49.1 Atrial premature depolarization; I45.2 Bifascicular block; J30.2 Other seasonal allergic rhinitis; Z79.4 Long term (current) use of insulin; Z79.82 Long term (current) use of aspirin; Z79.899 Other long term (current) drug therapy; Z87.891 Personal history of nicotine dependence; Z95.1 Presence of aortocoronary bypass graft; Z95.5 Presence of coronary angioplasty implant and graft; Z99.81 Dependence on supplemental oxygen
CPT/HCPCS: 36415; 36416; 51702; 71045; 80048; 80053; 82607; 82962; 83036; 83735; 84443; 84484; 85025; 85347; 85378; 85730; 93005; 93306; 93455; 96361; 96372; 96374; 99152; 99153; 99285; C1724; C1725; C1769; C1874; C1887; C1894; C9602; G0378; J1644; J1650; J2250; J2370; J3010; J3490; J7030; J7050; Q9967

== ENCOUNTER → 2022-06-17 14:08 | Outpatient (BNVA) | payer MEDICARE, SELFPAY | PROVIDERS: PCP Family Medicine; Visit Provider Nurse Practitioner Family | DX: I25.10 Atherosclerotic heart disease of native coronary artery without angina pectoris (principal); I10 Essential (primary) hypertension | CPT/HCPCS: 80048; 93005; 99214 ==

== ENCOUNTER 2022-06-19 19:08 | Emergency (ER) | payer MEDICARE, SELFPAY ==
[2022-06-19 19:10] VITALS: PULSE 95; RESP 18; O2SAT 97
--- NOTE | 2022-06-19 19:45 | XRR_ITS ---
PROCEDURE INFORMATION: Exam: XR Chest Exam date and time: 06/19/2022 8:02 PM Age: 76 years old Clinical indication: Shortness of breath; Additional info: Esophageal obstruction, please use some gastrograffin TECHNIQUE: Imaging protocol: Radiologic exam of the chest. Views: 2 views. COMPARISON: CR XR chest 1V portable [id number] 06/03/2022 3:55 PM FINDINGS: Tubes, catheters and devices: There is a spinal cord stimulator with the paddle at the level of the C3 and C4 vertebrae. Lungs: Persistent right middle lobe opacification, this may be due at least in part to right middle lobe scarring as noted on prior CT scan dated 01/15/2022. Pleural spaces: No pleural effusion. No pneumothorax. Heart/Mediastinum: There is oral contrast in the distal esophagus and in the stomach. Vasculature: Stable vascular calcifications in the aorta. Bones/joints: Bones are diffusely osteopenic. Degenerative changes in the spine and shoulders. Patient has had a previous fusion in the lower cervical spine. XR/XR chest 2V* [id number] IMPRESSION: 1. There is oral contrast in the distal esophagus and in the stomach. Dedicated esophagram or upper endoscopy recommended if there is continuing clinical concern for an esophageal obstruction. 2. Persistent right middle lobe opacification, this may be due at least in part to right middle lobe scarring as noted on prior CT scan dated 01/15/2022. CT scan of the chest would be recommended if there is clinical concern for a superimposed acute process in the lungs. 3. Incidental/nonacute findings are listed in the report.
--- NOTE | 2022-06-19 20:06 | ED_ITS ---
HPI - Neck Pain/Injury General: Chief Complaint: Airway/Esophagus Foreign Body Stated Complaint: walnut stuck in throat Time Seen by Provider: 06/19/22 19:18 Source: patient and family History of Present Illness: 76-year-old female with 1 prior history of esophageal bolus obstruction. She presents with trouble swallowing, vomiting liquids following eating a brownie with a walnut. She believes the walnut is stuck at the base of her throat. No trouble breathing. Currently she is handling her secretions. MD complaint: neck pain Onset (ago): hour(s) Place: home Severity: moderate Quality: other Duration: intermittent Relieving factors: none Exacerbating factors: swallowing Context: other Associated symptoms: Reports dysphagia; Denies difficulty walking, dizziness, fevers/chills, headache(s), swollen glands or tingling Treatments prior to arrival: none Review of Systems Const: Denies: fever(s) Eyes: Denies: change in vision ENMT: Denies: throat pain Card: Denies: chest pain or palpitations Resp: Denies: dyspnea or productive cough GI: Reports: dysphagia Neuro: Denies: headache(s), difficulty walking or dizziness PFS ED PFSH: Medical History Actinic keratosis Carpal tunnel syndrome of right wrist Diabetes mellitus History of anxiety History of COPD Hx of cataract Hx of hyperlipidemia Hx of hypotension Hx of osteoporosis Intervertebral cervical disc disorder with myelopathy, cervical region Joint instability Pituitary tumor PVC (premature ventricular contraction) Ulnar nerve entrapment at elbow Surgical History H/O bladder repair surgery H/O esophagogastroduodenoscopy H/O local excision of skin lesion Excision of right forearm and right hand skin lesion, 02/2009, Dr. Chandler ([facility]) H/O right knee surgery History of carpal tunnel surgery of right wrist 1984 History of colonoscopy with polypectomy 2020 History of laryngoscopy History of pituitary surgery History of removal of implants of both breasts Hx of appendectomy Hx of breast implants, bilateral Hx of cholecystectomy Hx of foot surgery Hx of hernia repair Hx of hysterectomy Hx of neck surgery Hx of tonsillectomy S/P CABG (coronary artery bypass graft) S/P cervical spinal fusion C5-C7 ACDFF, [facility], 2005 S/P decompression of ulnar nerve at elbow right, [place], 1984 Status post Arpan fundoplication Family History Mother , Age 75 Hypertension Cancer Heart disease Father , Age 48 Myocardial infarction Denies family history of Anesthesia complication Bleeding disorder Social History Smoking and tobacco status: former smoker Quit status (tobacco): has quit using tobacco Year quit tobacco: 1984 - 3PPD x 25 Years Second hand smoke exposure: No Smoking risk assessment/counseling performed?: No Alcohol intake: never Desire information about alcohol rehabilitation?: No Counseling given: No Substance/Drug Use: never Desire information about substance/drug rehabilitation?: No Counseling given: No Adopted: No Caregiver/support person: No Lives independently: Yes Household members: spouse Marital status: Current occupational status: employed 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 [employer] Current occupational exposures/hazards: No Do you think of yourself as: Straight/Heterosexual Current gender identity: Female Female Reproductive History: Spontaneous abortions: No Physical Exam Const: COMMON NORMALS: no acute distress GENERAL APPEARANCE: cooperative; not ill appearing and not frail appearing HENMT: COMMON NORMALS: normocephalic, atraumatic and Normal external nose present HEAD & SCALP: normocephalic and atraumatic FACE & SINUS: normal facial exam and face symmetric NOSE: Normal external nose present Eye: COMMON NORMALS: Equal, round and reactive pupils present and EOMs intact bilaterally PUPIL: Yes Equal, round and reactive pupils present Neck/C-Spine: GENERAL: Yes trachea midline Chest: CHEST: Yes Symmetrical chest wall rise Resp: COMMON NORMALS: normal respiratory effort, No retractions, No use of accessory muscles and clear to auscultation bilaterally AUSCULTATION: clear to auscultation bilaterally Cardio: COMMON NORMALS: regular rate and regular rhythm RATE: regular rate RHYTHM: regular rhythm GI: COMMON NORMALS: Normal to inspection, nondistended, normoactive bowel sounds present Extremity: COMMON NORMALS: no pedal edema Neuro: MICHELE COMA SCALE: document GCS findings Michele coma scale eye opening: Spontaneous [place] coma scale verbal response: Orientated [place] coma scale motor response: Obey commands Michele coma scale total score: 15 SENSORY EXAM: Yes extremities (intact) Psych: COMMON NORMALS: speech normal SPEECH: Yes normal speech Skin: COMMON NORMALS: no rashes or lesions noted GENERAL SKIN EXAM: no rashes or lesions noted Course Vital Signs: Vital signs: Vital Signs Temperature 98.4 F 06/19/22 22:11 Pulse Rate 72 06/19/22 22:11 Respiratory Rate 16 06/19/22 22:11 Blood Pressure 104/60 06/19/22 22:11 Pulse Oximetry 92 06/19/22 22:11 Oxygen Delivery Me thod Room Air 06/19/22 22:11 MDM - Neck Pain/Injury Medical Decision Making Patient was given Gastrografin with chest x-ray to see if obstruction was present. Patient vomited the Gastrografin prior to x-ray. X-ray showed no obstruction, with oral Gastrografin in the distal esophagus and in the stomach. No evidence of contrast leakage or perforation.Surgery was notified and case EGD needed. In the meantime, patient was given glucagon, sublingual nitrogen, and at 5-minute heather drank Coca-Cola. walnut has passed clinically, and the patient is no longer vomiting liquids. She is tolerating well. Patient continues to tolerate liquids. She feels comfortable going home. We will allow. Lab Data Radiology Impressions Chest X-Ray 06/19/22 19:45 IMPRESSION: 1. There is oral contrast in the distal esophagus and in the stomach. Dedicated esophagram or upper endoscopy recommended if there is continuing clinical concern for an esophageal obstruction. 2. Persistent right middle lobe opacification, this may be due at least in part to right middle lobe scarring as noted on prior CT scan dated 01/15/2022. CT scan of the chest would be recommended if there is clinical concern for a superimposed acute process in the lungs. 3. Incidental/nonacute findings are listed in the report. Discharge Plan Discharge Patient Disposition: Home Clinical Impression: Esophageal foreign body Condition: Stable Prescriptions: No Action (DME) Diabetic Shoes See Rx Instructions .ROUTE .MEDSUPPLY Qty: 1 0RF Rx Instructions: As directed, with 3 pairs of inserts From Home. (DME) Custom Insoles See Rx Instructions .Route .MEDSUPPLY Qty: 1 0RF Rx Instructions: As directed (DME) Diabetic Shoes See Rx Instructions .Route .MEDSUPPLY Qty: 1 0RF Rx Instructions: As directed (DME) Diabetic Shoes with 3 sets of insoles See Rx Instructions .Route .MEDSUPPLY Qty: 1 0RF Rx Instructions: As directed by JOHN PAUL&O ([facility] [place]) Custom arch supports See Rx Instructions .Route .MEDSUPPLY Qty: 1 0RF Rx Instructions: As directed by JOHN PAUL&O albuterol sulfate 90 mcg/actuation HFA aerosol inhaler 2 puff inhalation Q6H PRN (Reason: shortness of breath or wheezing) Qty: 8.5 2RF albuterol sulfate 2.5 mg /3 mL (0.083 %) solution for nebulization 2.5 mg inhalation DAILY PRN (Reason: shortness of breath or wheezing) Qty: 180 3RF (DME) Afflo Vest See Rx Instructions .Route .MEDSUPPLY Qty: 1 0RF Rx Instructions: twice daily. ([facility] [place]) Diabetic shoes with 3 pairs of inserts See Rx Instructions .Route .MEDSUPPLY Qty: 1 0RF Rx Instructions: As directed J P & O ([facility] [place]) INOGEN See Rx Instructions .Route .MEDSUPPLY Qty: 1 0RF Rx Instructions: Change portable oxygen source to INOGEN. ([facility] [place]) Diabetic Shoes 3 sets of insoles See Rx Instructions .Route .MEDSUPPLY Qty: 1 0RF Rx Instructions: As directed by HOME levothyroxine 25 mcg tablet See Rx Instructions .ROUTE .COMPLEX Qty: 30 4RF Dose Instruction: TAKE 1 TABLET BY MOUTH EVERY DAY Rx Instructions: TAKE 1 TABLET BY MOUTH EVERY DAY aspirin 81 mg Tablet,Delayed Release (Dr/Ec) 81 mg PO DAILY@12 Hold Instructions: Resume on 02/22/19. PreserVision AREDS [id number] Capsule 1 cap PO DAILY@12 clopidogrel 75 mg Tablet 75 mg PO DAILY Qty: 30 2RF carvedilol [Coreg] 6.25 mg tablet 6.25 mg PO BID Rx Instructions: must administer with a meal/food cetirizine 10 mg tablet 10 mg PO QAM diltiazem HCl 60 mg tablet 60 mg PO DAILY@12 furosemide 20 mg tablet 20 mg PO DAILY PRN (Reason: Edema) rosuvastatin 10 mg tablet 10 mg PO BEDTIME Trelegy Ellipta 100-62.5-25 mcg blister with device 1 inh inhalation QAM Rx Instructions: UNDER 340B polyethylene glycol 3350 [Miralax] 17 gram Powder In Packet 17 g PO EVERY OTHER DAY Stool Softener Gummies 1 tab PO DAILY Discharge Orders: Discharge ED (Routine); Ordered 06/19/22 Ordered By: Chiki Higgins Referrals: Keanu Major DO [Primary Care Provider] - Patient Instructions: Esophageal Foreign Body (ED) Activity Restrictions/Additional Instructions: Return for increasing chest or throat discomfort, vomiting, fever, any other concerning symptoms Coding Level of Care Code ED Customer Marketing Manager for Mick Thompson
[2022-06-19] MEDS: glucagon 1 mg/mL KIT 1 mL IV (20:48)
[2022-06-19] MEDS: nitroglycerin 0.4 mg sublingual Tablet SUBLINGUAL (20:49)
[2022-06-19 22:11] VITALS: BP 104/60; PULSE 72; RESP 16; TEMP 36.9; O2SAT 92
== END 2022-06-19 22:14 | disposition home or self-care (01) ==
PROVIDERS: Emergency Provider Emergency Medicine; PCP Family Medicine
DX: T18.128A Food in esophagus causing other injury, initial encounter (principal); X58.XXXA Exposure to other specified factors, initial encounter; E11.9 Type 2 diabetes mellitus without complications; J44.9 Chronic obstructive pulmonary disease, unspecified; E78.5 Hyperlipidemia, unspecified; Z95.1 Presence of aortocoronary bypass graft; Z87.891 Personal history of nicotine dependence; Z79.82 Long term (current) use of aspirin; Z79.02 Long term (current) use of antithrombotics/antiplatelets
CPT/HCPCS: 71046; 99283; J1610

== ENCOUNTER → 2022-07-08 13:34 | Outpatient (BNVA) | payer MEDICARE, SELFPAY | PROVIDERS: PCP Family Medicine; Visit Provider Internal Medicine | DX: I25.10 Atherosclerotic heart disease of native coronary artery without angina pectoris (principal); E78.5 Hyperlipidemia, unspecified; E11.9 Type 2 diabetes mellitus without complications; Z95.1 Presence of aortocoronary bypass graft; I10 Essential (primary) hypertension; Z87.891 Personal history of nicotine dependence | CPT/HCPCS: 99214 ==

== ENCOUNTER → 2022-07-28 15:19 | Outpatient (BNVA) | payer MEDICARE, SELFPAY | PROVIDERS: PCP Family Medicine; Visit Provider Podiatrist Foot & Ankle Surgery | DX: E11.42 Type 2 diabetes mellitus with diabetic polyneuropathy (principal); L60.8 Other nail disorders; L60.3 Nail dystrophy; M21.619 Bunion of unspecified foot; I73.9 Peripheral vascular disease, unspecified; M20.41 Other hammer toe(s) (acquired), right foot; M20.42 Other hammer toe(s) (acquired), left foot; R23.4 Changes in skin texture | CPT/HCPCS: 11721; 99214 ==

== ENCOUNTER 2022-08-20 09:51 | Outpatient (CLI) | payer MEDICARE, SELFPAY ==
--- NOTE | 2022-08-20 10:04 | XR_ITS ---
WS: [id number] Cervical spine, 3 views, 08/20/2022 Clinical Data: Neck pain Comparison: Cervical spine, 07/26/2019. Findings: No compression fractures are seen. There is anterior cervical disc fusion C5-C7 which is st able. There is degenerative disc narrowing at C3-C4 and C4-C5. There are epidural stimulator leads wh ich appear to end at the C2 level. There is no prevertebral soft tissue swelling. The odontoid is unr emarkable. The soft tissues of the neck and the lung apices are normal. XR/XR cervical spine 3V* [id number] Impression: 1. Anterior cervical disc fusion C5-C7. 2. Degenerative disc narrowing at C3-C4 and C4-C5. 3. Epidural stimulator leads ending at C2.
== END 2022-08-20 09:52 | disposition home or self-care (01) ==
PROVIDERS: PCP Family Medicine; Visit Provider Family Medicine
DX: M50.31 Other cervical disc degeneration, high cervical region (principal); M43.22 Fusion of spine, cervical region
CPT/HCPCS: 72040

== ENCOUNTER → 2022-11-01 14:10 | Outpatient (BNVA) | payer MEDICARE, SELFPAY | PROVIDERS: PCP Family Medicine; Visit Provider Internal Medicine Pulmonary Disease | DX: J45.909 Unspecified asthma, uncomplicated (principal); R91.8 Other nonspecific abnormal finding of lung field; J47.0 Bronchiectasis with acute lower respiratory infection; I49.9 Cardiac arrhythmia, unspecified; Z87.891 Personal history of nicotine dependence | CPT/HCPCS: 99214 ==

== ENCOUNTER 2022-11-02 13:35 | Outpatient (CLI) | payer MEDICARE, SELFPAY ==
--- NOTE | 2022-11-02 13:39 | MM_ITS ---
WS: [id number] DIAGNOSTIC LEFT DIGITAL TOMOSYNTHESIS MAMMOGRAPHY WITH CAD. LEFT breast ultrasound HISTORY: Left breast mass, radiology recommended 6m follow up. COMPARISON: 04/12/2022 and 03/22/2022 and 03/18/2021 Technique: CC, MLO and ML views. Spot compression RIGHT CC and MLO. Breast composition: There are scattered areas of fibroglandular density. The asymmetry seen only on t he CC projection is not as apparent on today's exam. This may be a prominent duct or vessel seen on e nd. No corresponding finding on the lateral projections. LEFT breast ultrasound, limited. Ultrasound at 10:00 is normal. There is no skin thickening or soft tissue thickening as seen on the p rior study. No corresponding abnormality is noted in the 7-8 o'clock axis. IMPRESSION: MM/[place] [id number] BI-RADS: 2-Benign FOLLOW UP: See Report 1. The asymmetry in the LEFT breast nearly completely resolves and appears less conspicuous on today's exam. There are no corresponding ultrasound findings. 2. Return to annual screening mammography. Annual screening mammogram should be obtained in April 2023.
== END 2022-11-02 13:36 | disposition home or self-care (01) ==
PROVIDERS: PCP Family Medicine; Visit Provider Family Medicine
DX: N63.22 Unspecified lump in the left breast, upper inner quadrant (principal)
CPT/HCPCS: 76642; 77061; G0279

== ENCOUNTER → 2022-11-03 14:42 | Outpatient (BNVA) | payer MEDICARE, SELFPAY | PROVIDERS: PCP Family Medicine; Visit Provider Podiatrist Foot & Ankle Surgery | DX: L60.8 Other nail disorders (principal); L60.3 Nail dystrophy; I73.9 Peripheral vascular disease, unspecified; M21.619 Bunion of unspecified foot; M20.41 Other hammer toe(s) (acquired), right foot; M20.42 Other hammer toe(s) (acquired), left foot; R23.4 Changes in skin texture; E11.42 Type 2 diabetes mellitus with diabetic polyneuropathy | CPT/HCPCS: 11721 ==

== ENCOUNTER 2022-11-11 06:00 | Outpatient (RCR) | payer MEDICARE, SELFPAY | END 2022-12-07 23:59 | disposition home or self-care (01) | LOC: SST 06:00 | PROVIDERS: PCP Family Medicine; Visit Provider Specialist | DX: R49.0 Dysphonia (principal); J38.7 Other diseases of larynx | CPT/HCPCS: 92507; 92524 ==

== ENCOUNTER → 2022-11-16 15:14 | Outpatient (BNVA) | payer MEDICARE, SELFPAY | PROVIDERS: PCP Family Medicine; Visit Provider Family Medicine | DX: D69.6 Thrombocytopenia, unspecified (principal); R53.83 Other fatigue; R41.3 Other amnesia; K59.09 Other constipation; E83.42 Hypomagnesemia; Z86.39 Personal history of other endocrine, nutritional and metabolic disease; E83.52 Hypercalcemia; G56.01 Carpal tunnel syndrome, right upper limb | CPT/HCPCS: 80053; 82306; 82607; 82746; 83036; 83735; 84439; 84443; 85025 ==

== ENCOUNTER → 2022-11-22 14:45 | Outpatient (BNVA) | payer MEDICARE, SELFPAY | PROVIDERS: PCP Family Medicine; Referring Provider Family Medicine; Visit Provider Nurse Practitioner Family | DX: Z85.828 Personal history of other malignant neoplasm of skin (principal); L57.0 Actinic keratosis; L82.1 Other seborrheic keratosis; D22.5 Melanocytic nevi of trunk; L57.8 Other skin changes due to chronic exposure to nonionizing radiation | CPT/HCPCS: 17000; 99203 ==

== ENCOUNTER → 2022-11-24 09:55 | Outpatient (BNVA) | payer MEDICARE, SELFPAY | PROVIDERS: PCP Family Medicine; Visit Provider Internal Medicine | DX: D69.6 Thrombocytopenia, unspecified (principal); R53.83 Other fatigue; D35.2 Benign neoplasm of pituitary gland; E03.9 Hypothyroidism, unspecified; E11.9 Type 2 diabetes mellitus without complications; E16.2 Hypoglycemia, unspecified; Z79.890 Hormone replacement therapy | CPT/HCPCS: 99214 ==

== ENCOUNTER 2022-12-01 11:38 | Outpatient (CLI) | payer MEDICARE, SELFPAY ==
[2022-12-01 12:36] LABS: Cortisol Random 4.48 ug/dL (2.47-19.5)
== END 2022-12-01 11:39 | disposition home or self-care (01) ==
LOC: LAB 11:40
PROVIDERS: PCP Family Medicine; Visit Provider Internal Medicine
DX: D69.6 Thrombocytopenia, unspecified (principal)
CPT/HCPCS: 36415; 82533

== ENCOUNTER 2022-12-08 06:00 | Outpatient (RCR) | payer MEDICARE, SELFPAY | END 2022-12-22 23:59 | disposition home or self-care (01) | LOC: SST 06:00 | PROVIDERS: PCP Family Medicine; Visit Provider Specialist | DX: D35.2 Benign neoplasm of pituitary gland (principal); E03.9 Hypothyroidism, unspecified; E11.649 Type 2 diabetes mellitus with hypoglycemia without coma; Z79.890 Hormone replacement therapy; R49.0 Dysphonia | CPT/HCPCS: 92507; 99214 ==

== ENCOUNTER → 2022-12-09 14:11 | Outpatient (BNVA) | payer MEDICARE, SELFPAY | PROVIDERS: PCP Family Medicine; Visit Provider Internal Medicine | DX: E78.5 Hyperlipidemia, unspecified (principal); I25.10 Atherosclerotic heart disease of native coronary artery without angina pectoris; Z95.1 Presence of aortocoronary bypass graft; E11.9 Type 2 diabetes mellitus without complications; I10 Essential (primary) hypertension; Z87.891 Personal history of nicotine dependence | CPT/HCPCS: 99214 ==

== ENCOUNTER 2022-12-28 08:58 | Oncology outpatient (recurring) (ONCR) | payer MEDICARE, SELFPAY ==
--- OUTSIDE RECORDS SUMMARY | 2022-12-28 09:02 | XMS_ITS | Patient Health Record ---
Author Name Unknown Organization [facility] Address [address] [place] [address] Care Team Providers Care Mercerizing Range Feeder Name Role Phone Rohan Putnam Primary Care Provider [phone] ALLERGIES Allergen (clinical drug ingredient) Drug/Non Drug Allergy documented on EMR Reaction Allergy Type Onset Date Status Ansaid Unknown Drug Allergy Active atenolol Atenolol Unknown Drug Allergy Active ciprofloxacin Cipro Unknown Drug Allergy Act nae cortisone Cortisone Acetate Unknown Drug Allergy Active losartan Cozaar dyspnea, rash Drug Allergy Act nae Inapsine Unknown Drug Allergy Active atorvastatin Lipitor leg pain Drug Allergy Acti ve Lortab Unknown Drug Allergy Active bupivacaine Marcaine Unknown Drug Allergy Activ e Requip Unknown Drug Allergy Active Stadol tongue swelling Drug Allergy A ctive angiotensin-convertin g enzyme inhibitor (FN) SCOTT Inhibitors rash, cough Drug Allergy Active REASON FOR REFERRAL No Information MEDICATIONS Medication SIG (Take, Route, Frequency, Duration) Notes Start Date End Date Status Nitroglycerin 0.4 MG as directed Sublingual prn needs a refill will see Dr. Acosta Active Azithromycin 250 MG 1 tablet by mouth on Tuesday, Tuesday, and Tuesday Orally Once a day Not-Taking Tobramycin Active Rosuvastatin Calcium 10 MG TAKE 1 TABLET BY MOUTH AT BEDTIME for 30 Active Trelegy Ellipta 100-62.5-25 MCG/INH INHALE 1 PUFF ONCE DAILY for 180 Active Carvedilol 6.25 MG 1 tablet with food Orally Twice a day for 90 Active Multivitamin Adult - 1 tab Orally daily Not-Taking Tussin CF 5-10-100 MG/5ML 10 ml as needed Orally every 4 hrs for 10 days Active Levothyroxine Sodium 25 MCG TAKE 1 TABLET BY MOUTH ONCE DAILY IN THE MORNING ON AN EMPTY STOMACH FOR 90 DAYS for 90 Active Pantoprazole Sodium 40 MG 1 tablet Orally Once a day for 30 day(s) 01/29/2021 Active Zithromax Z-Jack 250 MG 2 tablet on the first day, then 1 tablet daily for 4 days Orally Once a day for 5 day(s) Not-Taking Diclofenac Sodium 1 % 2 grams Externally Four times a day for 30 Active Mucinex 600 MG 1 tablet as needed Orally every 12 hrs for 30 days Active Blood Glucose Test - as directed In Vitro daily for 30 days 12/31/2020 Active dilTIAZem HCl 60 MG Take 1 tablet by mouth once daily for 30 days for 30 Active Cetirizine HCl 10 MG 1 tablet prn Orally Once a day for 30 Active Blood Glucose Monitoring Suppl w/Device as directed in vivo daily for 30 days 03/18/2020 Active OneTouch Basic System w/Device as directed [facility] Part B compliant for 30 days Active Ventolin HFA 108 (90 Base) MCG/ACT Inhale 2 puff(s) by mouth q 4 to 6 hr Inhalation every 4 hrs for 30 days Active PreserVision AREDS 2 - as directed Orally Patient reports taking one capsule in the morning and one in the evening Active Aspirin 81 81 MG 1 tablet Orally Once a day for 30 day(s) Active IMMUNIZATIONS Vaccine Route Administration Date Status Comme nts Adacel IM Intramuscular 06/03/2020 Administered Afluria Quadrivalent influenza vaccine IM Intramuscular 10/29/2019 Administered COVID-19 Vaccine (Moderna) Dose #1 Unknown 02/06/2020 Administered COVID-19 Vaccine (Moderna) Dose #2 IM Intramuscular 03/06/2020 Administered DTaP Unknown 09/13/2011 Administered Flu vaccine no Preserv 3 and > IM Intramuscular 11/05/2011 Administered Flu vaccine no Preserv 3 and > Unknown 11/14/2012 Administered FLUAD IM Intramuscular 11/19/2020 Administered Pneumococcal polysaccharide PPV23 IM Intramuscular 11/03/2009 Administered Zoster (Herpes Zoster/Shingles) Unknown 10/04/2011 Administered SOCIAL HISTORY Tobacco Use: Social History Observation Description Date Details (start date - stop date) Never Smoker NA - NA Sex Assigned At : Social History Observation Description Sex Assigned At Unknown Household Question Answer Notes Marital status: Tobacco Use/Smoking Question Answer Notes Are you a nonsmoker Alcohol Screen (Audit-C) Question Answer Notes Did you have a drink containing alcohol in the p ast year? No Points 0 Interpretation Negative PROBLEMS Problem Type ICD Code Onset Dates Problem Status W/U Status Risk SNOMED Code Notes Problem Dehydration (276.51) 2009 Problem resolved confirmed Dehydration (00503584) [facility] [place] [facility]- Problem Unspecified anemia (285.9) 2017 Problem resolved confirmed Anemia (354122863) [facility]- Problem Chronic laryngitis (476.0) 2011 Problem resolved confirmed Chronic laryngitis (75868905) [facility]- Problem Atrial fibrillation (427.31) 2017 Active confirmed Atrial fibrillat ion (06144294) [facility]- Problem Orthostatic hypotension (458.0) 2005 Problem resolved confirmed Orthostatic hypotension (68182094) [facility] [place] [facility]- Problem Acute frontal sinusitis (461.1) 2011 Problem resolved confirmed Acute frontal sinusitis (87885274) [facility]- Problem Acute sinusitis, unspecified (461.9) 2008 Problem resolved confirmed Acute sinusitis (13857148) [facility] [place] [facility]- Problem Acute laryngitis, without mention of obstruction (464.00) 2014 Problem resolved confirmed Acute Laryngitis (0736975) [facility] [place] [facility]- Problem Acute bronchitis (466.0) 2003 Problem resolved confirmed Acute bronchitis (26335497) [facility]- Problem Glossitis (529.0) 2005 Problem resolved confirmed Glossitis (17936151) [facility] [place] [facility]- Problem Constipation (564.0) 2003 Problem resolved confirmed Constipation (80534922) [facility] [place] [facility]- Problem Other constipation (564.09) 2010 Problem resolved confirmed Constipation (21161715) [facility]- Problem 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) 2017 Problem resolved confirmed Capsular breast contracture of breast implant (004210767) [facility] [place] [facility]- Problem Pain in thoracic spine (724.1) 2013 Problem resolved confirmed Pain in thoracic spine (751226558) [facility] [place] [facility]- Problem Corns and callosities (700) 2004 Problem resolved confirmed Callosity (165238542) [facility]- Problem Edema (782.3) 2009 Problem resolved confirmed Edema (650012576) [facility] Problem Anorexia (783.0) 2004 Problem resolved confirmed Anorexia (74539325) [facility]- Problem Loss of weight (783.21) 2017 Problem resolved confirmed Weight decreased (875807676) [facility] Problem Palpitations (785.1) 2005 Problem resolved confirmed Palpitations (71646884) [facility] [place] [facility] Problem Shortness of breath (786.05) 2007 Problem resolved confirmed Shortness of breath (366161326) [facility] Problem Wheezing (786.07) 2010 Problem resolved confirmed Wheezing (00191778) [facility] [place] [facility] Problem Cough (786.2) 2004 Problem resolved confirmed Cough (17757689) [facility] [place] [facility] Problem Hemoptysis (786.3) 2004 Problem resolved confirmed Hemoptysis (99585987) [facility]- Problem Heartburn (787.1) 2013 Problem resolved confirmed Heartburn (60811676) [facility] [place] [facility] Problem Dysphagia (787.2) 2004 Problem resolved confirmed Dysphagia (30102842) [facility] [place] [facility]- Problem Abdominal pain, generalized (789.07) 2013 Problem resolved confirmed Generalized abdomina l pain (742645174) [facility] [place] [facility] Problem Cachexia (799.4) 2017 Problem resolved confirmed Cachexia (079253494) [facility] [place] [facility]- Problem Emphysema, unspecified (J43.9) Active confirmed Emphysema (54282 009) Problem Gastroparesis (K31.84) Active confirmed 073002999 Problem Age-related osteoporosis without current pathological fracture (M81.0) Active confirmed 76497240 Problem Type 2 diabetes mellitus without complication, without long-term current use of insulin (E11.9) Active confirmed 935684868 Problem Chronic obstructive pulmonary disease, unspecified COPD type (J44.9) Active confirmed 47368982 Problem Ingrown toenail (703.0) 2008 Problem resolved confirmed Ingrown toenail (293395193) [facility] [place] [facility]- Problem Generalized weakness (780.79) 2007 Problem resolved confirmed General weakness (35400781) [facility]- Problem Anxiety, generalized (300.02) 2016 Active confirmed Generalized anxi ety disorder (93056430) [facility]- Problem Hypothyroidism, acquired (E03.9) Active confirmed 355196231 Problem Hypoglycemia (E16.2) Active confirmed 3 90166013 Problem Hiatal hernia (553.3) 2015 Active confirmed Hiatal hernia (22514903) [facility] [place] [facility]- Problem Fibromyalgia (729.1) 2003 Problem resolved confirmed Fibromyalgia (262930180) [facility]- Problem Rash (782.1) 2007 Problem resolved confirmed Rash (912843173) [facility] [place] [facility]- Problem Hypokalemia (276.8) 2016 Problem resolved confirmed Hypokalemia (33192513) [facility]- Problem Hypercholesterolemia (E78.00) Active confirmed 95494492 Problem Low back pain (724.2) 2003 Problem resolved confirmed Low back pain (040532247) [facility]- Problem Back pain (724.5) 2003 Problem resolved confirmed Back pain (263845365) [facility]- Problem Seasonal allergies (J30.2) Active confirmed 734418627 Problem Neck pain (723.1) 2005 Problem resolved confirmed Neck pain (99227666) [facility]- Problem Peripheral polyneuropathy (G62.9) Active confirmed 48779515 Problem Pulmonary emphysema, unspecified emphysema type (J43.9) Active confirmed 23337214 Problem Fatigue (780.79) 2007 Problem resolved confirmed Fatigue (92287363) [facility]- Problem Hypertension (I10) Active confirmed Hyp ertension (10996308) Problem Stasis dermatitis (454.1) 2010 Problem resolved confirmed Stasis dermatitis (74124500) [facility] [place] [facility]- Problem Tarry stools (578.1) 2006 Problem resolved confirmed Tarry stools (1175640) [facility]- Problem Frequent. urgent need to urinate (788.63) 2006 Problem resolved confirmed Urgent desire to urinate (11945490) [facility]- Problem Headache (307.81) 2003 Problem resolved confirmed Headache (63549573) [facility]- Problem Hypercholesterolemia (272.0) 2007 Problem resolved confirmed Hypercholesterolemia (41700674) [facility]- Problem Hypotension, other (458.8) 2017 Problem resolved confirmed Hypotension (23327543) [facility]- Problem Influenza, with other manifestations (487.8) 2018 Problem resolved confirmed Influenza with non-respiratory manifestation (36779545) [facility]- Problem Laceration on the arm (880.03) 2010 Problem resolved confirmed Open wound of upper arm without complication (23910518) [facility]- Problem Laceration on the finger(s) (883.0) 2007 Problem resolved confirmed Open wound of finger without complication (3379714) [facility]- Problem Lymph node mass (785.6) 2003 Problem resolved confirmed Lymphadenopathy (21868475) [facility] Problem 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 Problem resolved confirmed Lumbosacral spondylosis without myelopathy (53855952) [facility]- Problem 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 Problem resolved confirmed [facility]- Problem Muscle weakness (729.89) 2018 Problem resolved confirmed Muscle weakness (19728094) [facility]- Problem Panic attack (300.01) 2015 Problem resolved confirmed Panic attack (972546906) [facility]- Problem Seasonal allergies (477.0) 2017 Problem resolved confirmed Seasonal allergy (122240355) [facility]- Problem Shoulder pain (719.41) 2007 Problem resolved confirmed Shoulder pain (52106428) [facility]- Problem Spasms (781.0) 2006 Problem resolved confirmed Abnormal involuntary movement (792210961) [facility]- Problem Toe onychomycosis (110.1) 2016 Problem resolved confirmed Onychomycosis caused by dermatophyte (230439286) [facility]- Problem Mid back pain (724.5) 2003 Problem resolved confirmed Backache (564737413) [facility]- Problem Osteopenia (733.90) 2017 Problem resolved confirmed Osteopenia (571430164) [facility]- Problem Persistent cough (786.2) 2003 Problem resolved confirmed Persistent cough (324606646) [facility] Problem Pituitary anomaly (759.2) 2016 Problem resolved confirmed [facility]- Problem Pulmonary hypertension (416.0) 2017 Problem resolved confirmed Pulmonary hypertension (79403353) [facility] Problem Pulmonary nodule (518.89) 2010 Problem resolved confirmed Pulmonary nodule (592494776) [facility]- Problem Allergic rhinitis, other allergen-induced (477.8) 2011 Problem resolved confirmed Allergic rhinitis du e to allergen (11880659) [facility]- Problem Allergic rhinitis, other allergen-induced, NEC (477.8) 2012 Problem resolved confirmed Allergic rhinitis du e to allergen (37076615) [facility]- Problem Allergies (477.0) 2006 Problem resolved confirmed Allergic rhinitis caused by pollen (29711854) [facility]- Problem Arm laceration (880.03) 2008 Problem resolved confirmed Open wound of upper arm without complication (87738620) [facility]- Problem Blurred vision (368.8) 2016 Problem resolved confirmed Blurring of visual image (655730655) [facility]- Problem Breast mass (611.72) 2011 Problem resolved confirmed Breast mass (04278523) [facility]- Problem Bronchitis, acute (466.0) 2010 Problem resolved confirmed Acute bronchitis (91373264) [facility]- Problem Bruising (782.7) 2015 Problem resolved confirmed Bruising (570440641) [facility]- Problem Chronic bronchitis, obstructive, with (acute) exacerbation (491.21) 2008 Problem resolved confirmed Acute exacerbation o f chronic obstructive airways disease (841911219) [facility] Problem Night sweats (780.8) 2017 Problem resolved confirmed Night sweats (43609887) [facility]- Problem Other abnormal laboratory result on blood (790.99) 2016 Problem resolved confirmed Disorder of hematopoietic system (88662621) [facility]- Problem Sore Throat (462) 2009 Problem resolved confirmed Sore throat (055001558) [facility]- Problem Acquired overlapping toe (735.8) 2018 Problem resolved confirmed Acquired deformity o f toe (61160319) [facility]- Problem Acute exacerbation of chronic obstructive pulmonary disease (COPD) (491.21) 2008 Problem resolved confirmed Acute exacerbation o f chronic obstructive airways disease (938177286) [facility]- Problem Atypical mole (238.2) 2008 Problem resolved confirmed Atypical mole syndrome (815464558) [facility]- Problem Chest pain (786.51) 2003 Problem resolved confirmed Chest pain (19404368) [facility]- Problem Common wart(s) (078.19) 2007 Problem resolved confirmed Viral warts (61804965) [facility]- Problem Cramps in limbs (729.82) 2006 Problem resolved confirmed Cramp in limb (913100049) [facility]- Problem Depressive disorder not elsewhere classified (311) 2013 Problem resolved confirmed Depressive disorder (82926862) [facility]- Problem Emphysema (492.8) 2007 Problem resolved confirmed Emphysema (73086446) [facility]- Problem Generalized abdominal pain (789.07) 2010 Problem resolved confirmed Generalized abdomina l pain (936748001) [facility]- Problem Generalized osteoarthritis, 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 Problem resolved confirmed Generalized osteoarthritis (803399297) [facility]- Problem Heat intolerance (780.99) 2010 Problem resolved confirmed Intolerant of heat (32326433) [facility]- Problem Hemorrhoids, internal (455.0) 2011 Problem resolved confirmed Internal hemorrhoids (51979766) [facility] [place] [facility]- Problem Lab: Used to match unlinked laboratory orders (V92) 2013 Problem resolved confirmed [facility]- Problem Leg neuropathy (355.8) 2008 Problem resolved confirmed 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) [facility]- Problem Dependent edema (782.3) 2015 Problem resolved confirmed Dependent edema (282536989) [facility]- Problem Elevated fasting glucose (790.21) 2014 Problem resolved confirmed Impaired fasting glycaemia (854598412) [facility]- Problem Esophageal spasm (530.5) 2015 Problem resolved confirmed Esophageal spasm (07235506) [facility]- Problem PATRIA (300.02) 2005 Problem resolved confirmed Generalized anxiety disorder (54682223) [facility]- Problem Generalized osteoarthritis, site unspecified (715.00) 2018 Active confirmed Generalized osteoarthritis (655876186) [facility]- Problem Hand pain (729.5) 2016 Problem resolved confirmed Hand pain (55487707) [facility]- Problem Foot pain (729.5) 2012 Problem resolved confirmed Foot pain (51079350) [facility]- Problem History of fibromyalgia (V13.5) 2004 Problem resolved confirmed [facility]- Problem Hyperkalemia (276.7) 2015 Problem resolved confirmed Hyperkalemia (58747698) [facility]- Problem Hypotension (458.8) 2006 Problem resolved confirmed Hypotension (47039499) [facility] [place] [facility]- Problem IDDM (250.01) 2007 Problem resolved confirmed Type I diabetes mellitus without complication (799002351) [facility]- Problem Influenza (487.8) 2003 Problem resolved confirmed Influenza (5549844) [facility]- Problem Influenza immunization (V04.81) 2009 Problem resolved confirmed Influenza immunization (98770373) [facility]- Problem Insomnia (307.41) 2011 Problem resolved confirmed Insomnia (918190276) [facility]- Problem Laceration on the leg (891.0) 2011 Problem resolved confirmed Open wound of knee and/or leg and/or ankle (545640892) [facility]- Problem Leg pain (729.5) 2006 Problem resolved confirmed Pain in limb (26411002) [facility]- Problem Oliguria (788.5) 2003 Problem resolved confirmed Oliguria (17590972) [facility]- Problem Other protein-calorie malnutrition, moderate degree (263.0) 2017 Problem resolved confirmed Malnutrition of moderate degree (Michaels: 60% to less than 75% of standard weight) (60147887) [facility]- Problem Peripheral neuropathy (356.9) 2016 Problem resolved confirmed Peripheral neuropath y (933538102) [facility]- Problem Precordial chest pain (786.51) 2010 Problem resolved confirmed Precordial pain (79370667) [facility]- Problem Rapid heart beat (785.0) 2006 Problem resolved confirmed Rapid heart beat (1795926) [facility]- Problem Screening for colorectal cancer (V76.49) 2013 Problem resolved confirmed Screening for malignant neoplasm of colon (491472411) [facility]- Problem Sinus tachycardia (427.89) 2013 Problem resolved confirmed Sinus tachycardia (96875063) [facility]- Problem Acute sinusitis, maxillary (461.0) 2005 Problem resolved confirmed Acute maxillary sinusitis (79677402) [facility]- Problem Other specified iron deficiency anemia (280.8) 2012 Problem resolved confirmed Iron deficiency anemia (35021568) [facility]- Problem Postmenopausal osteoporosis (733.01) 2004 Problem resolved confirmed Postmenopausal osteoporosis (297722533) [facility]- Problem Preoperative examination - other specified (V72.83) 2012 Problem resolved confirmed Pre-surgery evaluation (069699023) [facility]- Problem Sore throat (784.1) 2003 Problem resolved confirmed Sore throat (159590112) [facility]- Problem SVT (427.0) 2014 Problem resolved confirmed Supraventricular tachycardia (1392822) [facility] [place] [facility]- Problem Tachycardia, NOS (785.0) 2009 Problem resolved confirmed Tachycardia (4963917) [facility]- Problem Thyroid nodule (241.0) 2004 Problem resolved confirmed Thyroid nodule (749434957) [facility]- Problem UTI (595.0) 2006 Problem resolved confirmed Urinary tract infection (95749908) [facility]- Problem Vaccination against other viral diseases, Influenza (V04.81) 2006 Problem resolved confirmed Needs influenza immunization (735153696) [facility]- Problem Yeast infection (112.9) 2006 Problem resolved confirmed Candidiasis (95820183) [facility]- Problem Acute upper respiratory infection (465.8) 2004 Problem resolved confirmed Acute upper respiratory infection (20451571) [facility] [place] [facility]- Problem Anxiety with depression (300.4) 2012 Problem resolved confirmed Anxiety depression (725649995) [facility]- Problem Breast pain (611.71) 2008 Problem resolved confirmed Breast pain (71093859) [facility] [place] [facility]- Problem Cerumen impaction (380.4) 2004 Problem resolved confirmed Impacted cerumen (34425850) [facility]- Problem Chronic bronchitis, obstructive, with acute exacerbation (491.21) 2002 Problem resolved confirmed Acute exacerbation o f chronic obstructive airways disease (653068259) [facility] [place] [facility]- Problem Paresthesia (782.0) 2007 Problem resolved confirmed Paresthesia (58221372) [facility] [place] [facility]- Problem Peripheral nerve neuropathy (356.9) 2002 Problem resolved confirmed [facility]- Problem Pituitary adenoma (227.3) 2017 Problem resolved confirmed Pituitary adenoma (104912874) [facility]- Problem Stasis ulcer of leg (454.0) 2013 Problem resolved confirmed Stasis ulcer of leg (582327806) [facility]- Problem Acute upper respiratory infection of multiple sites (465.8) 2018 Problem resolved confirmed Acute upper respiratory infection (83349137) [facility] [place]- Problem Allergic rhinitis, pollen-induced (477.0) 2015 Problem resolved confirmed Allergic rhinitis caused by pollen (71221111) [facility] [place]- Problem Atypical chest pain (786.59) 2005 Problem resolved confirmed Atypical chest pain (072846332) [facility] [place]- Problem Atypical skin lesion (238.2) 2015 Problem resolved confirmed Neoplasm of uncertai n behavior of skin (77692611) [facility] [place]- Problem Cervical radiculopathy (723.4) 2014 Problem resolved confirmed Cervical radiculopathy (63413038) [facility] [place]- Problem Chronic bronchitis, simple (491.0) 2003 Problem resolved confirmed Simple chronic bronchitis (17402373) [facility] [place]- Problem Chronic low back pain (724.2) 2015 Problem resolved confirmed Chronic low back corbin n (226877423) [facility] [place]- Problem Constipation (564.01) 2008 Problem resolved confirmed Constipation (15819533) [facility] [place] [facility]- Problem Dietary vitamin B12 deficiency (281.1) 2008 Problem resolved confirmed Vitamin B>12< deficiency anaemia (77267650) [facility] [place] [facility]- Problem Emphysematous lung (492.0) 2003 Problem resolved confirmed Emphysematous bleb o f lung (71760232) [facility] [place] [facility]- Problem Eye pain (379.91) 2016 Problem resolved confirmed Eye pain (51334927) [facility] [place] [facility]- Problem Incontinence of urine, other (788.39) 2008 Problem resolved confirmed Urinary incontinence (550278070) [facility] [place] [facility]- Problem Infected fingernail (681.02) 2009 Problem resolved confirmed Paronychia of finger (110436035) [facility] [place] [facility]- Problem Joint pain (719.4) 2003 Problem resolved confirmed Joint pain (86924009) [facility] [place]- Problem Joint pain, multiple sites (719.49) 2013 Problem resolved confirmed Multiple joint pain (74154596) [facility] [place] [facility]- Problem Knee pain (719.46) 2011 Problem resolved confirmed Knee pain (6397257056) [facility] [place] [facility]- Problem URI (465.8) 2004 Problem resolved confirmed URI (4519472699) [facility] [place]- Problem Urinary tract infection (595.0) 2007 Problem resolved confirmed Urinary tract infection (69897767) [facility] [place]- Problem Acute exacerbation COPD (786.05) 2006 Problem resolved confirmed Dyspnea (755935053) [facility] [place]- Problem Acute sinusitis (461.8) 2008 Problem resolved confirmed Acute sinusitis (00649585) [facility] [place]- Problem Bacterial pneumonia, due to Pseudomonas (482.1) 2008 Problem resolved confirmed Pneumonia caused by Pseudomonas (85874716) [facility] [place]- Problem Callus (700) 2009 Problem resolved confirmed Callus (474888657) [facility] [place]- Problem Chronic bronchitis (491.0) 2012 Problem resolved confirmed Chronic bronchitis (92871472) [facility] [place]- Problem Eczema (691.8) 2010 Problem resolved confirmed Eczema (98541781) [facility] [place] [facility]- Problem Elbow pain (719.42) 2004 Problem resolved confirmed Elbow pain (57396948) [facility] [place]- Problem Emphysema with Chronic Bronchitis (491.20) 2004 Problem resolved confirmed Chronic obstructive bronchitis (674016721) [facility] [place]- Problem Finger onychomycosis (110.1) 2007 Problem resolved confirmed Onychomycosis caused by dermatophyte (150774113) [facility] [place]- Problem Frequent urination (788.41) 2004 Problem resolved confirmed Increased frequency of urination (236740725) [facility] [place] [facility]- Problem Fungus infection (117.9) 2007 Problem resolved confirmed Fungus infection (9941441) [facility] [place] [facility]- Problem Gastritis, acute (535.00) 2005 Problem resolved confirmed Acute gastritis (00097757) [facility] [place]- Problem Heartburn (786.51) 2009 Problem resolved confirmed Heartburn (52625567) [facility] [place]- Problem Toenail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
[2022-12-28] MEDS: cosyntropin 0.25 mg SDV IVP (09:59)
[2022-12-28 10:19] LABS: Cosyntropin Baseline 5.59 mcg/dL
[2022-12-28 10:52] VITALS: BP 102/60; PULSE 60; RESP 17; TEMP 36.2; O2SAT 96
[2022-12-28 11:15] LABS: Cosyntropin 30 Minute 15.19 mcg/dL
[2022-12-28 11:58] LABS: Cosyntropin 1 Hour 17.94 mcg/dL
== END 2023-01-06 23:59 | disposition home or self-care (01) ==
LOC: ONCMED 08:59
PROVIDERS: PCP Family Medicine; Visit Provider Internal Medicine
DX: E27.40 Unspecified adrenocortical insufficiency (principal)
CPT/HCPCS: 82533; 96375; J0834

== ENCOUNTER 2023-01-14 09:54 | Outpatient (CLI) | payer MEDICARE, SELFPAY ==
--- NOTE | 2023-01-14 10:00 | CT_ITS ---
WS: [id number] CT chest wo con [id number] HISTORY: 1 yr follow up TECHNIQUE: Axial imaging performed through the thorax. Coronal and sagittal reformats are submitted. All CT scans at [facility] use at least one of these dose optimization techniques: automated exposure control; mA and/or kV adjustment per patient size (includes targeted exams where dose is mat ched to clinical indication); or iterative reconstruction. CONTRAST: None DLP: 201.54 mGy.cm COMPARISON: 01/15/2022, 05/08/2021 and 08/18/2018 Lungs and central airway: Moderate pulmonary hyperexpansion. There are no suspicious or enlarging pul monary masses or nodules. There are a few scattered micronodules which are not increasing in size. Th ere is no dense consolidation. Subsegmental atelectasis with bronchiectasis in the RIGHT middle lobe. Similar to the prior study. Very mild RIGHT lower lobe bronchiectasis. Pleura: Normal. No pleural effusion. Heart and pericardium: Moderate cardiomegaly Mediastinum and nesha: No mediastinum or hilar adenopathy. Vessels: Ectatic mildly dilated thoracic aorta. Aorta measures 3.8 cm involving the ascending aorta. Pulmonary arteries mildly prominent. There is heavy calcification in the [place] coronary arteries. Nash spect there are also cardiac stents present. Chest wall and lower neck: No soft tissue masses. Upper abdomen: Artifact through the posterior RIGHT upper abdomen from the spinal stimulator. Osseous structures: No destructive process. IMPRESSION: 1. Advanced chronic emphysema. 2. No new or enlarging pulmonary mass or nodule. No suspicious nodules. 3. Subsegmental atelectasis and bronchiectasis medial RIGHT middle lobe. 4. Cylindrical bronchiectasis RIGHT lower lobe. 5. Cardiomegaly.
== END 2023-01-14 09:55 | disposition home or self-care (01) ==
PROVIDERS: PCP Family Medicine; Visit Provider Internal Medicine Pulmonary Disease
DX: J47.9 Bronchiectasis, uncomplicated (principal); J43.8 Other emphysema; R91.8 Other nonspecific abnormal finding of lung field; I51.7 Cardiomegaly
CPT/HCPCS: 71250

== ENCOUNTER → 2023-01-28 09:22 | Outpatient (BNVA) | payer MEDICARE, SELFPAY | PROVIDERS: PCP Family Medicine; Visit Provider Internal Medicine | DX: D35.2 Benign neoplasm of pituitary gland; E03.9 Hypothyroidism, unspecified; E11.649 Type 2 diabetes mellitus with hypoglycemia without coma; Z79.890 Hormone replacement therapy | CPT/HCPCS: 36415; 80048; 84244; 84439; 99214 ==

== ENCOUNTER → 2023-02-09 11:27 | Outpatient (BNVA) | payer MEDICARE, SELFPAY | PROVIDERS: PCP Family Medicine; Visit Provider Podiatrist Foot & Ankle Surgery | DX: E11.8 Type 2 diabetes mellitus with unspecified complications (principal); L60.8 Other nail disorders; L60.3 Nail dystrophy; I73.9 Peripheral vascular disease, unspecified; R23.4 Changes in skin texture; E11.42 Type 2 diabetes mellitus with diabetic polyneuropathy | CPT/HCPCS: 11721 ==

== ENCOUNTER → 2023-02-22 09:25 | Outpatient (BNVA) | payer MEDICARE, SELFPAY | PROVIDERS: PCP Family Medicine; Visit Provider Internal Medicine | DX: D35.2 Benign neoplasm of pituitary gland (principal); E03.9 Hypothyroidism, unspecified; E11.649 Type 2 diabetes mellitus with hypoglycemia without coma; Z79.890 Hormone replacement therapy | CPT/HCPCS: 99214 ==

== ENCOUNTER → 2023-04-12 10:34 | Outpatient (BNVA) | payer MEDICARE, SELFPAY | PROVIDERS: PCP Family Medicine; Visit Provider Podiatrist Foot & Ankle Surgery | DX: L60.3 Nail dystrophy (principal); I73.9 Peripheral vascular disease, unspecified; R23.4 Changes in skin texture; E11.42 Type 2 diabetes mellitus with diabetic polyneuropathy; M72.2 Plantar fascial fibromatosis | CPT/HCPCS: 11721 ==

== ENCOUNTER 2023-04-29 12:26 | Outpatient (CLI) | payer MEDICARE, SELFPAY ==
--- NOTE | 2023-04-29 12:29 | XRR_ITS ---
PROCEDURE INFORMATION: Exam: XR Chest Exam date and time: 04/29/2023 12:49 PM Age: 77 years old Clinical indication: Cough; Prior surgery; Surgery date: 6+ months; Surgery type: Dbl bypass; Additional info: Productive cough TECHNIQUE: Imaging protocol: Radiologic exam of the chest. Views: 2 views. COMPARISON: CT chest con [id number] 01/14/2023 10:10 AM FINDINGS: Tubes, catheters and devices: A coroner/medical examiner probably a neurostimulator, projects on the right side. Lungs: Unremarkable. No consolidation. Pleural spaces: Unremarkable. No pleural effusion. No pneumothorax. Heart/Mediastinum: Coronary artery calcifications. Bones/joints: Unremarkable. XR/XR chest 2V* [id number] IMPRESSION: No acute cardiopulmonary disease.
== END 2023-04-29 12:27 | disposition home or self-care (01) ==
LOC: RAD 12:27
PROVIDERS: PCP Family Medicine; Visit Provider Internal Medicine Pulmonary Disease
DX: J22 Unspecified acute lower respiratory infection (principal)
CPT/HCPCS: 71046

== ENCOUNTER 2023-05-02 10:36 | Outpatient (CLI) | payer MEDICARE, SELFPAY | END 2023-05-02 10:37 | disposition home or self-care (01) | LOC: LAB 10:36 | PROVIDERS: PCP Family Medicine; Visit Provider Internal Medicine Pulmonary Disease | DX: J22 Unspecified acute lower respiratory infection (principal) | CPT/HCPCS: 87070; 87205 ==

== ENCOUNTER 2023-05-05 10:21 | Outpatient (RCR) | payer MEDICARE, SELFPAY | END 2023-05-08 23:59 | disposition home or self-care (01) | LOC: SPT 10:21 | PROVIDERS: PCP Family Medicine; Visit Provider Podiatrist Foot & Ankle Surgery | DX: M72.2 Plantar fascial fibromatosis (principal) | CPT/HCPCS: 97140; 97161 ==

== ENCOUNTER → 2023-05-17 12:06 | Outpatient (BNVA) | payer MEDICARE, SELFPAY | PROVIDERS: PCP Family Medicine; Visit Provider Family Medicine | DX: I10 Essential (primary) hypertension (principal); E03.9 Hypothyroidism, unspecified; R59.9 Enlarged lymph nodes, unspecified; R79.89 Other specified abnormal findings of blood chemistry; E11.9 Type 2 diabetes mellitus without complications | CPT/HCPCS: 80053; 80061; 82310; 82607; 83036; 83970; 84439; 84443; 85025 ==

== ENCOUNTER → 2023-06-09 12:51 | Outpatient (BNVA) | payer MEDICARE, SELFPAY | PROVIDERS: PCP Family Medicine; Visit Provider Internal Medicine | DX: E78.5 Hyperlipidemia, unspecified (principal); E11.9 Type 2 diabetes mellitus without complications; Z95.1 Presence of aortocoronary bypass graft; I10 Essential (primary) hypertension; I25.10 Atherosclerotic heart disease of native coronary artery without angina pectoris; Z87.891 Personal history of nicotine dependence | CPT/HCPCS: 99214 ==

== ENCOUNTER → 2023-07-07 09:23 | Outpatient (BNVA) | payer MEDICARE, SELFPAY | PROVIDERS: PCP Family Medicine; Visit Provider Internal Medicine Pulmonary Disease | DX: J44.89 Other specified chronic obstructive pulmonary disease (principal); J47.0 Bronchiectasis with acute lower respiratory infection; Z87.891 Personal history of nicotine dependence; R91.8 Other nonspecific abnormal finding of lung field; I49.9 Cardiac arrhythmia, unspecified | CPT/HCPCS: 99214 ==

== ENCOUNTER 2023-07-11 11:30 | Outpatient (CLI) | payer MEDICARE, SELFPAY | END 2023-07-11 11:31 | disposition home or self-care (01) | PROVIDERS: PCP Family Medicine; Visit Provider Internal Medicine Pulmonary Disease | DX: R05.8 Other specified cough (principal) | CPT/HCPCS: 87070; 87077; 87186; 87205 ==

== ENCOUNTER → 2023-07-19 10:42 | Outpatient (BNVA) | payer MEDICARE, SELFPAY | PROVIDERS: PCP Family Medicine; Visit Provider Podiatrist Foot & Ankle Surgery | DX: L60.3 Nail dystrophy (principal); I73.9 Peripheral vascular disease, unspecified; R23.4 Changes in skin texture; E11.42 Type 2 diabetes mellitus with diabetic polyneuropathy; L84 Corns and callosities | CPT/HCPCS: 11055; 11721 ==

== ENCOUNTER → 2023-10-05 07:57 | Outpatient (BNVA) | payer MEDICARE, SELFPAY | PROVIDERS: PCP Family Medicine; Visit Provider Internal Medicine Critical Care Medicine | DX: J96.11 Chronic respiratory failure with hypoxia (principal); R05.3 Chronic cough; J47.1 Bronchiectasis with (acute) exacerbation; T17.908D Unspecified foreign body in respiratory tract, part unspecified causing other injury, subsequent encounter; K21.9 Gastro-esophageal reflux disease without esophagitis; K31.84 Gastroparesis; Z87.09 Personal history of other diseases of the respiratory system; Z91.89 Other specified personal risk factors, not elsewhere classified; R63.6 Underweight; X58.XXXD Exposure to other specified factors, subsequent encounter; Z71.6 Tobacco abuse counseling; Z68.1 Body mass index [BMI] 19.9 or less, adult; Z71.89 Other specified counseling | CPT/HCPCS: 99215 ==

== ENCOUNTER 2023-11-08 09:50 | Outpatient (CLI) | payer MEDICARE, SELFPAY ==
--- NOTE | 2023-11-08 10:00 | FL_ITS ---
WS: [id number] Exam: FL barium swallow modifd [id number] Date/Time of Exam: 11/08/2023 9:52 AM Reason For Exam: Fluoroscopy time: 3min [id number] minutes # of spot films: 1 Modified barium swallow was performed in conjunction with the speech therapy service. Oral pharyngeal phase of swallowing was normal. The patient experienced very minimal penetration into the laryngeal inlet when drinking thin liquid barium solutions. The patient tolerated the remaining barium mixture foodstuffs without aspiration or penetration. There was some pooling of food residue i n the vallecula. The patient ingested a barium tablet without difficulty or complication. FL/FL barium swallow modifd [id number] IMPRESSION: 1. No sign of aspiration. 2. Mild penetration into the laryngeal inlet when the patient ingested thin liq uid barium. A separate report and recommendations will follow from the speech therapy servi ce.
== END 2023-11-08 09:51 | disposition home or self-care (01) ==
LOC: RAD 09:50
PROVIDERS: PCP Family Medicine; Visit Provider Internal Medicine Critical Care Medicine
DX: T17.908D Unspecified foreign body in respiratory tract, part unspecified causing other injury, subsequent encounter (principal); J47.1 Bronchiectasis with (acute) exacerbation; Z91.89 Other specified personal risk factors, not elsewhere classified; X58.XXXA Exposure to other specified factors, initial encounter
CPT/HCPCS: 74230; 92611

== ENCOUNTER → 2023-12-05 09:42 | Outpatient (BNVA) | payer MEDICARE, SELFPAY | PROVIDERS: PCP Family Medicine; Visit Provider Podiatrist Foot & Ankle Surgery | DX: L60.8 Other nail disorders (principal); I73.9 Peripheral vascular disease, unspecified; M19.072 Primary osteoarthritis, left ankle and foot | CPT/HCPCS: 99213 ==

== ENCOUNTER 2023-12-20 09:24 | Outpatient (CLI) | payer MEDICARE, SELFPAY ==
--- NOTE | 2023-12-20 09:45 | USCV_ITS ---
Makenzie Ambrocio Age: 78 Gender: F : 1945 Exam Date: 12/20/2023 10:21 Ordering Phys: Miguel Rivera DPM Technologist: [place] [facility] [place] Indication: pad RIGHT LEFT Brachial 139.00 mmHg Brachial 144.00 mmHg Pressure (mmHg) Waveform Pressure (mmHg) Waveform 240.00 AIR TRAFFIC CONTROL SPECIALIST 240.00 240.00 DPA 240.00 120.00 Pre-Exercise Toe Pressure 100.00 0.83 Pre-Exercise Toe/Brachial Index 0.69 FINDINGS Supranormal resting ABIs Resting MARLON of 0.83 on the right side and 0.68 on the left side Normal PVR waveforms CONCLUSIONS No significant arterial obstruction, based on the above findings Features of extensive arterial sclerosis Dr Haja Mcleod MD [facility] (Electronically Signed) Final Date: 20 December 2023 20:19 S
== END 2023-12-20 09:25 | disposition home or self-care (01) ==
LOC: RAD 09:26
PROVIDERS: PCP Family Medicine; Visit Provider Podiatrist Foot & Ankle Surgery
DX: I25.10 Atherosclerotic heart disease of native coronary artery without angina pectoris (principal); I70.91 Generalized atherosclerosis
CPT/HCPCS: 93923

== ENCOUNTER → 2023-12-22 09:33 | Outpatient (BNVA) | payer MEDICARE, SELFPAY | PROVIDERS: PCP Family Medicine; Visit Provider Nurse Practitioner Family | DX: I25.10 Atherosclerotic heart disease of native coronary artery without angina pectoris (principal); Z95.1 Presence of aortocoronary bypass graft; I10 Essential (primary) hypertension; Z87.891 Personal history of nicotine dependence | CPT/HCPCS: 99214 ==

== ENCOUNTER → 2024-01-10 11:33 | Outpatient (BNVA) | payer MEDICARE, SELFPAY | PROVIDERS: PCP Family Medicine; Visit Provider Family Medicine | DX: E03.9 Hypothyroidism, unspecified (principal); Z86.39 Personal history of other endocrine, nutritional and metabolic disease; R73.09 Other abnormal glucose | CPT/HCPCS: 80053; 83036; 84439; 84443; 86376 ==

== ENCOUNTER → 2024-02-20 09:27 | Outpatient (BNVA) | payer MEDICARE, SELFPAY | PROVIDERS: PCP Family Medicine; Visit Provider Internal Medicine Cardiovascular Disease | DX: Z01.818 Encounter for other preprocedural examination (principal); I45.10 Unspecified right bundle-branch block | CPT/HCPCS: 93005 ==

== ENCOUNTER 2024-02-21 10:34 | Outpatient (CLI) | payer MEDICARE, SELFPAY ==
--- NOTE | 2024-02-21 10:47 | XR_ITS ---
WS: [id number] XR chest 2V* [id number] REASON FOR EXAM: PRE-OP CLEARANCE FINDINGS: The chest is unchanged compared to 04/29/2023. Cervical dorsal column stimulator. Moderate tortuosity of the thoracic aorta. Normal heart size. Calcified coronary artery stents. Central calcified granulomatous disease bilaterally. Chronic right middle lobe atelectasis. Hyperexpansion and irregular aeration of the lung dunbar. No acute pulmonary parenchymal or pleural findings. Bony thorax is intact. XR/XR chest 2V* [id number] IMPRESSION: Stable abnormal chest with no acute abnormality. Findings of chronic obstructive lung disease. Previous coronary artery stents.
[2024-02-21 11:28] LABS: Basophils # 0.1 10^3/uL (0.0-0.1); Eosinophils # 0.6 10^3/uL (0.0-0.8); Eosinophils % 8.3 %; Hematocrit 42.7 % (36-47); Lymphocytes # 1.4 10^3/uL (0.8-4.8); Mean Corpuscular HGB Conc 31.4 g/dL (30-55); Mean Corpuscular Volume 89.3 fl (85-98); Mean Platelet Volume 11.4 fL (7.4-10.4); Monocytes # 0.6 10^3/uL (0.2-0.9); Monocytes % 9.3 %; Neutrophils # 4.07 10^3/uL (1.8-7.7); Neutrophils % 60.1 %; Nucleated Red Blood Cells % 0 %; Platelet Count 171 10^3/cmm (157-399); Red Blood Count 4.78 10^6/uL (3.85-5.65); Red Cell Distribution Width 15.1 % (12.1-15.1); White Blood Count 6.77 10^3/uL (3.29-11.43)
[2024-02-21 11:48] LABS: Alanine Aminotransferase 12 U/L (0-33); Albumin Level 3.9 g/dL (3.5-5.2); Alkaline Phosphatase 92 U/L (35-105); Anion Gap 10.2 (5-19); Aspartate Amino Transferase 20 U/L (0-32); Blood Urea Nitrogen 19 mg/dL (8-23); Calcium 9.6 mg/dL (8.5-10.5); Carbon Dioxide 28 mmol/L (22-29); Chloride 103 mmol/L (98-107); Globulin 2.7 g/dL (1.3-4.6); Glucose 142 mg/dL (65-115); Osmolality Calculated 289 mOsm/kg (285-295); Potassium 4.2 mmol/L (3.5-5.1); Sodium 137 mmol/L (136-145); Total Bilirubin 0.5 mg/dL (0.15-1.2); Total Protein 6.6 g/dL (6.6-8.7)
== END 2024-02-21 10:35 | disposition home or self-care (01) ==
LOC: RAD 10:39
PROVIDERS: PCP Family Medicine; Visit Provider Otolaryngology
DX: Z01.818 Encounter for other preprocedural examination (principal); Z96.89 Presence of other specified functional implants; Q25.46 Tortuous aortic arch; R93.1 Abnormal findings on diagnostic imaging of heart and coronary circulation; D71 Functional disorders of polymorphonuclear neutrophils; J98.11 Atelectasis; R91.8 Other nonspecific abnormal finding of lung field; Z98.890 Other specified postprocedural states
CPT/HCPCS: 36415; 71046; 80053; 85025

== ENCOUNTER → 2024-03-05 10:07 | Outpatient (BNVA) | payer MEDICARE, SELFPAY | PROVIDERS: PCP Family Medicine; Visit Provider Podiatrist Foot & Ankle Surgery | DX: L60.8 Other nail disorders (principal); M19.072 Primary osteoarthritis, left ankle and foot | CPT/HCPCS: 99213 ==

== ENCOUNTER → 2024-03-13 11:31 | Outpatient (BNVA) | payer MEDICARE, SELFPAY | PROVIDERS: PCP Family Medicine; Visit Provider Family Medicine | DX: E03.9 Hypothyroidism, unspecified (principal) | CPT/HCPCS: 84439; 84443 ==

== ENCOUNTER → 2024-03-19 12:55 | Outpatient (BNVA) | payer MEDICARE, SELFPAY | PROVIDERS: PCP Family Medicine; Visit Provider Podiatrist Foot & Ankle Surgery | DX: L60.0 Ingrowing nail (principal); L60.8 Other nail disorders; M19.072 Primary osteoarthritis, left ankle and foot | CPT/HCPCS: 11750 ==

== ENCOUNTER → 2024-04-12 11:29 | Outpatient (BNVA) | payer MEDICARE, SELFPAY | PROVIDERS: PCP Family Medicine; Visit Provider Podiatrist Foot & Ankle Surgery | DX: Z98.890 Other specified postprocedural states (principal); E11.42 Type 2 diabetes mellitus with diabetic polyneuropathy | CPT/HCPCS: 99213 ==

== ENCOUNTER → 2024-06-04 09:45 | Outpatient (BNVA) | payer MEDICARE, SELFPAY | PROVIDERS: PCP Family Medicine; Visit Provider Podiatrist Foot & Ankle Surgery | DX: E11.42 Type 2 diabetes mellitus with diabetic polyneuropathy (principal); L60.3 Nail dystrophy; L84 Corns and callosities; M20.41 Other hammer toe(s) (acquired), right foot; M20.42 Other hammer toe(s) (acquired), left foot; M21.41 Flat foot [pes planus] (acquired), right foot; M21.42 Flat foot [pes planus] (acquired), left foot; M21.611 Bunion of right foot; M21.612 Bunion of left foot | CPT/HCPCS: 11055; 11721; 99213 ==

== ENCOUNTER → 2024-06-20 14:42 | Outpatient (BNVA) | payer MEDICARE, SELFPAY | PROVIDERS: PCP Family Medicine; Visit Provider Internal Medicine | DX: I25.10 Atherosclerotic heart disease of native coronary artery without angina pectoris (principal); I10 Essential (primary) hypertension; E11.9 Type 2 diabetes mellitus without complications; Z86.39 Personal history of other endocrine, nutritional and metabolic disease; Z79.82 Long term (current) use of aspirin; Z95.1 Presence of aortocoronary bypass graft; Z87.891 Personal history of nicotine dependence | CPT/HCPCS: 99213 ==

== ENCOUNTER → 2024-09-03 09:50 | Outpatient (BNVA) | payer MEDICARE, SELFPAY | PROVIDERS: PCP Family Medicine; Visit Provider Podiatrist Foot & Ankle Surgery | DX: E11.42 Type 2 diabetes mellitus with diabetic polyneuropathy (principal); M21.619 Bunion of unspecified foot; M20.41 Other hammer toe(s) (acquired), right foot; M20.42 Other hammer toe(s) (acquired), left foot; M21.41 Flat foot [pes planus] (acquired), right foot; M21.42 Flat foot [pes planus] (acquired), left foot; L84 Corns and callosities; L60.3 Nail dystrophy | CPT/HCPCS: 11055; 11721 ==

== ENCOUNTER → 2024-10-22 11:06 | Outpatient (BNVA) | payer MEDICARE, SELFPAY | PROVIDERS: PCP Family Medicine; Visit Provider Family Medicine | DX: E03.9 Hypothyroidism, unspecified (principal); R73.09 Other abnormal glucose | CPT/HCPCS: 80053; 83036; 84439; 84443 ==

== ENCOUNTER → 2024-10-30 10:19 | Outpatient (BNVA) | payer MEDICARE, SELFPAY | PROVIDERS: PCP Family Medicine; Visit Provider Internal Medicine | DX: D35.2 Benign neoplasm of pituitary gland (principal); E16.A3 Hypoglycemia level 3; E27.40 Unspecified adrenocortical insufficiency; K31.84 Gastroparesis | CPT/HCPCS: 99215 ==

== ENCOUNTER 2024-11-07 15:12 | Outpatient (CLI) | payer MEDICARE, SELFPAY ==
--- NOTE | 2024-11-07 15:30 | CT_ITS ---
WS: [id number] CT HEAD WITH AND WITHOUT CONTRAST HISTORY: assess pituitary gland TECHNIQUE: Noncontrast axial images obtained from the vertex to the skull base. Additional imaging performed in axial images status post IV contrast. Bone and soft tissue windows are reviewed. All CT scans at [facility] use at least one of these dose optimization techniques: automated exposure control; mA and/or kV adjustment per patient size (includes targeted exams where dose is matched to clinical indication); or iterative reconstruction. CONTRAST: Omnipaque 350; 100 mL IV. DLP: 2101.70 mGy.cm COMPARISON: 04/27/2022 No acute intracranial hemorrhage, edema or midline shift. Mild cerebral atrophy and small vessel disease. No large territory infarct. No enhancing mass or vascular malformations identified. No mass in the sella turcica. This is a limited evaluation of the pituitary gland but there is no deviation of the optic chiasm or displacement of the infundibulum. Superior- inferior diameter of the pituitary gland is 6.3 mm. Dural venous sinuses are normally enhancing. Visualized [place] is unremarkable. Paranasal sinuses as visualized: Clear. Mastoid air cells: Clear. Calvarium and scalp: Intact. CT/CT head wo/w con [id number] IMPRESSION: 1. Mild cerebral atrophy and small vessel disease. 2. No enhancing masses or vascular malformations. 3. Normal CT appearance of the pituitary gland. Microadenomas would not be vis ualized by CT. The superior-inferior diameter of the pituitary gland is 6.3 mm is normal. No soft tissue encasing the carotid arteries.
[2024-11-07] MEDS: iohexol 350 mg/mL 500 mL Btl (per mL) IV (15:37)
== END 2024-11-07 15:13 | disposition home or self-care (01) ==
LOC: RAD 15:15
PROVIDERS: PCP Family Medicine; Visit Provider Internal Medicine
DX: D35.2 Benign neoplasm of pituitary gland (principal); G31.89 Other specified degenerative diseases of nervous system; I67.89 Other cerebrovascular disease
CPT/HCPCS: 70470

== ENCOUNTER → 2024-12-10 11:32 | Outpatient (BNVA) | payer MEDICARE, SELFPAY | PROVIDERS: PCP Family Medicine; Visit Provider Podiatrist Foot & Ankle Surgery | DX: E11.42 Type 2 diabetes mellitus with diabetic polyneuropathy (principal); L60.3 Nail dystrophy; L84 Corns and callosities; E11.8 Type 2 diabetes mellitus with unspecified complications; M21.41 Flat foot [pes planus] (acquired), right foot; M21.42 Flat foot [pes planus] (acquired), left foot | CPT/HCPCS: 11055; 11721 ==

== ENCOUNTER → 2024-12-19 15:10 | Outpatient (BNVA) | payer MEDICARE, SELFPAY | PROVIDERS: PCP Family Medicine; Visit Provider Internal Medicine | DX: R07.89 Other chest pain (principal); R06.02 Shortness of breath | CPT/HCPCS: 99214 ==

== ENCOUNTER 2025-01-02 08:58 | Outpatient (CLI) | payer MEDICARE, SELFPAY ==
--- NOTE | 2025-01-02 | ECG_ITS ---
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 Interpretive Statements Procedure: A total of 0.4 mg of Lexiscan was infused over 20 seconds. The stress phase was continued for a total of 5 minutes. Sestamibi was injected 20 seconds after the Lexiscan infusion. Findings: Baseline blood pressure 143/70. Baseline heart rate 58. Baseline EKG showed sinus bradycardia, heart rate 58, right bundle branch block, left anterior fascicular block. No ST changes with the stress test. There is no significant change in the blood pressure throughout the stress test. The heart rate increased to 93 bpm. Heart rate at the end of recovery was 78 bpm. Conclusion: 1. Normal EKG response to Lexiscan infusion without signs of ischemia. 2. No Lexiscan induced chest pain or cardiac arrhythmia. 3. Normal blood pressure and heart rate response. 4. Nuclear myocardial perfusion scan pending; see separate report. Electronically Signed On 01-02-2025 17:34:09 [employer]ODUCTION SUPER[employer]ENDENT [employer] by Cesario Virk M.D. [email or web address]
[2025-01-02 09:08] VITALS: BMI 18.5
--- NOTE | 2025-01-02 09:18 | NMCV_ITS ---
NM danielle perf SPECT r/s* [id number] Makenzie Ambrocio Age: 79 Gender: F : 1945 Exam Date: 01/02/2025 10:19 Ordering Phys: Eduard Valladares M.D ([email or web address]) Technologist: RIRI Conrad Exam Location: [facility] [place] Indications: cp STRESS TEST Please see separate stress test report in [facility] for full findings IMAGE PROTOCOL Rest/Stress 1 Lexiscan Day Radiopharmaceutical Dose (mCi) Administration Site Administered by Rest: Tc-99m 10.8 IV Donna Nelson, RIRI Sestamibi Stress:Tc-99m 32.2 IV Donna Nelson, TOOL POLISHING MACHINE OPERATOR Sestamibi Rest: 02-Jan-2025 60 Discovery 630 Stress: 02-Jan-2025 30 Discovery 630 0.4mg Lexiscan. Supine position only as patient was unable to lay prone. SPECT RESULTS Technical Quality: Good Raw Data Analysis: Normal Image Corrections: No attenuation or motion correction applied Summed Stress Score: 2 Summed Rest Score: 3 Summed Difference Score: 0 PERFUSION FINDINGS There is a small area of moderately reduced tracer counts in the apical inferior wall segment on both the stress and rest images. FUNCTIONAL RESULTS (calculated via Gated SPECT) Stress Image LV EF (%): 71 Stress EDV (mL):79 TID: 0.98 Stress ESV (mL):23 FUNCTIONAL FINDINGS: There is normal left ventricular systolic function. IMPRESSIONS 1. Myocardial perfusion imaging shows a small fixed defect in the apical inferior wall consistent with either artifact or a small infarct. No ischemia is present. 2. Normal left ventricular cavity size and systolic function, EF 71%. Cesario Virk MD, FACC (Electronically Signed) Final Date: 02 January 2025 17:05 S
[2025-01-02 11:25] VITALS: BP 151/75; PULSE 79
== END 2025-01-02 08:59 | disposition home or self-care (01) ==
PROVIDERS: PCP Family Medicine; Visit Provider Internal Medicine
DX: R07.9 Chest pain, unspecified (principal); R06.02 Shortness of breath; R93.1 Abnormal findings on diagnostic imaging of heart and coronary circulation
CPT/HCPCS: 36415; 78452; 96374; A9500; J2785